=== PATIENT | male | born 1950 | race Caucasian/White ===

== ENCOUNTER 2020-06-05 08:28 | Inpatient (IN) ==
[2020-06-05] MEDS ORDERED: OPTIRAY 350 500ml IV ONE (09:31)
--- NOTE | 2020-06-05 09:43 | Emergency Department Note ---
ED Visit Note This patient was seen with Dr. Quach. We discussed and agreed upon the history, physical, assessment and plan.. Resident Activity Tracking Resident Involvement: Resident Care Provided Care Provided: Adult ED
--- NOTE | 2020-06-05 09:44 | XRay Report ---
SINGLE VIEW CHEST CLINICAL HISTORY: Strokelike symptoms. FINDINGS: An AP, portable, upright chest radiograph is obtained. No prior studies are available for c omparison at the time of dictation. The examination is degraded by portable technique, apical lordoti c positioning, and patient rotation. A 3-lead cardiac pacemaker is in place. The heart is enlarged. T he pulmonary vasculature is noncongested. There is bibasilar scarring/atelectasis. The lungs and pleu ral spaces are otherwise clear. No pneumothorax is seen. The skeletal structures are osteopenic. The bony thorax is grossly intact. IMPRESSION: 1. Cardiomegaly and cardiac pacemaker. There is no radiographic evidence of congestive failure. 2. No airspace consolidation or large pleural effusion is identified. ACT 112: Negative or not required by law. Electronically signed by: Donald Yan M.D. 06/05/2020 9:42 AM
[2020-06-05 09:58] LABS: Basophils # (auto) 0.01 K/uL (0-0.2); Basophils % (auto) 0.2 %; Eosinophils # (auto) 0.13 K/uL (0-0.5); Eosinophils % (auto) 2.1 %; Hematocrit (blood only) 43.5 % (42-52); Hemoglobin 15.4 g/dL (14.0-18.0); Immature Granulocytes # (auto) 0.01 K/uL (0.00-0.02); Immature Granulocytes % (auto) 0.2 %; Lymphocytes # (auto) 1.35 K/uL (1.2-3.4); Lymphocytes % (auto) 21.4 %; Mean Corpuscular Hemoglobin 31.2 pg (25-34); Mean Corpuscular Hgb Conc 35.4 g/dL (32-36); Mean Corpuscular Volume 88.2 fL (80-100); Mean Platelet Volume 9.7 fL (7.4-10.4); Monocytes % (auto) 9.5 %; Neutrophils # (auto) 4.21 K/uL (1.4-6.5); Neutrophils % (auto) 66.6 %; Platelet Count 135 K/uL (130-400); RDW Coefficient of Variation 13.3 % (11.5-14.5); Red Blood Count 4.93 M/uL (4.7-6.1); White Blood Count 6.31 K/uL (4.8-10.8)
[2020-06-05 10:11] LABS: Partial Thromboplastin Time 27.1 Seconds (21.0-31.0); Prothrombin Time 10.4 Seconds (9.0-12.0)
[2020-06-05 10:15] LABS: Albumin Level 3.6 gm/dl (3.4-5.0); Calcium 9.2 mg/dl (8.5-10.1); Creatinine Clr Calc Pharmacy 95.6 ml/min; Est GFR (African American) 96.1; Est GFR (Non-African American) 82.9; Magnesium 1.8 mg/dl (1.8-2.4); Potassium 4.4 mmol/L (3.5-5.1)
[2020-06-05 10:24] LABS: Albumin Globulin Ratio 1.1 (0.9-2); Bilirubin,Total 0.9 mg/dl (0.2-1); Globulin 3.1 gm/dl (2.5-4.0); Total Protein 6.7 gm/dl (6.4-8.2); Troponin I 0.077 ng/ml (0-0.045)
--- NOTE | 2020-06-05 11:12 | CT Scan Report ---
CT head/brain wo con CLINICAL HISTORY: Stroke Like Symptoms COMPARISON STUDY: No previous studies for comparison. TECHNIQUE: Axial CT of the brain is performed from the vertex to the skull base. IV contrast was not administered for this examination. A dose lowering technique was utilized adhering to the principles of ALARA. CT DOSE: FINDINGS: No intra or extra-axial mass lesions are visualized. There is no CT evidence of acute cortical infarc tion. There is no evidence of midline shift. There is no acute hemorrhage. No calvarial fractures ar e visualized. There are minor white matter hypodensities likely on a small vessel basis. There is no evidence of pathologic ventricular dilatation. There is no evidence of acute sinusitis IMPRESSION: No acute intracranial findings ACT 112: Negative or not required by law. Electronically signed by: Dane Mesa M.D. 06/05/2020 11:11 AM
--- NOTE | 2020-06-05 11:26 | CT Scan Report ---
CT ANGIOGRAM OF THE BRAIN; CT ANGIOGRAM OF THE NECK CLINICAL HISTORY: Strokelike symptoms. COMPARISON STUDY: No priors. TECHNIQUE: Following the IV administration of 120 of Optiray 350, CT angiogram of the head and neck w as performed from the aortic arch to the vertex. Images are reviewed in the axial, sagittal, and bandar nal planes. 3-D MIPS images are created and assessed. IV contrast was administered without complicati on. All measurements were calculated based on NASCET criteria. A dose lowering technique was utilize d adhering to the principles of ALARA. CT DOSE: 1296.29 mGy.cm FINDINGS: Brain parenchyma: There is age-related involutional change noting mild subcortical and periventricula r microangiopathic disease. There is no hemorrhage, mass effect, or evidence of acute territorial isc hemia by CT criteria. There is no evidence of enhancing mass lesion on the angiogram phase images. Th e ventricles, sulci, and cisterns are prominent secondary to involutional change. Steen-white matter d ifferentiation is preserved. No extra-axial fluid collection is seen. Thoracic aorta: There is aneurysmal dilatation of the ascending thoracic aorta which measures up to 4 .8 cm in diameter. The aortic arch demonstrates standard 3-vessel anatomy. Right carotid arterial system: The right common carotid artery is widely patent. Atherosclerotic plaq ue causes less than 50% luminal narrowing of the proximal right internal carotid artery. The remainde r of the right internal carotid artery is widely patent, as is the right external carotid artery. Left carotid arterial system: The left common carotid artery is widely patent, as are the left internal corrosion specialist al and external carotid arteries. Mild plaque is seen in the carotid bulb. Vertebral arteries: The vertebral arteries are widely patent bilaterally noting a right-sided dominan ce. Subclavian arteries: Widely patent bilaterally. Intracranial vasculature: There is atherosclerotic calcification of the cavernous carotid arteries. T here is origin of the right posterior cerebral artery. The internal carotid arteries are patent at the skull base, as are the anterior and middle cerebral arteries bilaterally. The vertebrobasilar system and posterior cerebral arteries are widely patent. The right vertebral artery is dominant. Th ere is no aneurysm, high-grade stenosis, or focal vessel cut off seen throughout the intracranial cir culation. Jugular veins: Patent bilaterally. Dural sinuses: Patent. Lung apices: Partially visualized upper lobe lung parenchyma appears clear. Soft tissues: The visualized pharyngeal soft tissues are normal in appearance noting angiographic pha se technique. The oropharyngeal airway appears widely patent. The salivary and thyroid glands are nor mal in appearance. No cervical lymphadenopathy is seen. Skeletal structures: The skeletal structures are osteopenic. The calvarium appears intact. The cervic al spine is maintained noting multilevel spondylosis. No lytic or blastic lesion is seen. Orbits: The bony orbits are intact. Orbital contents are normal as visualized. Sinuses and mastoids: Mild mucosal thickening is noted in left sphenoid sinus. The remaining paranasa l sinuses are clear. The mastoid air cells are well pneumatized. IMPRESSION: 1. There is no hemorrhage, mass effect, or evidence of acute territorial ischemia by CT criteria noti ng angiographic phase technique. 2. Unremarkable CT angiogram of the brain. 3. There is aneurysmal dilatation of the visualized ascending thoracic aorta which measures up to 4.8 cm in diameter. 4. Atherosclerotic plaque causes less than 50% luminal narrowing of the proximal left internal caroti d artery. 5. Otherwise normal CT angiogram of the neck. ACT 112: Negative or not required by law. Electronically signed by: Donald Yan M.D. 06/05/2020 11:24 AM
--- NOTE | 2020-06-05 12:14 | Emergency Department Note ---
History of Present Illness General Chief complaint: Ear Pain/Problem Stated complaint: CANT HEAR OUT OF LEFT EAR,FACIAL NUMBNESS,BALANCE Time Seen by Provider: 06/05/20 08:53 Source: patient Mode of arrival: ambulatory Limitations: no limitations History of Present Illness Provider complaint: Blurred vision Maximum Pain Intensity: 0 This is a 69-year-old male who presents to the ED with a chief complaint of blurred vision in both of his eyes that started around 7:30 in the morning and resolved when he got here. He also states that he has been feeling unbalanced on his feet especially worse with turning his head left to right. The patient states that his left face felt numb off and on for the past month. He had some chest discomfort a couple of days ago and took a nitro. He has history of ND in 2011. Risk reports history of hypertension as well. Home Medications Medication Instructions Recorded Confirmed Type amlodipine [Norvasc] 5 mg PO QAM 06/05/20 06/05/20 History apixaban [Eliquis] 5 mg PO BID 06/05/20 06/05/20 History bumetanide 2 mg PO QAM 06/05/20 06/05/20 History capsaicin-skin cleanser [Qutenza] 2 ea TOPICAL Q90D 06/05/20 06/05/20 History cyanocobalamin (vitamin B-12) 1,000 mcg PO QAM 06/05/20 06/05/20 History [Vitamin B-12] folic acid 1 mg PO QAM 06/05/20 06/05/20 History glipizide 2.5 mg PO DAILY 06/05/20 06/05/20 History metoprolol succinate 50 mg PO QAM 06/05/20 06/05/20 History silbgwsx-abs-yblxw-vit K-lycop 1 tab PO QAM 06/05/20 06/05/20 History [One-A-Day Men's 50 Plus] nitroglycerin [Nitrostat] 0.4 mg SUBLINGUAL Q5M PRN 06/05/20 06/05/20 History olmesartan [Benicar] 20 mg PO BID 06/05/20 06/05/20 History omeprazole 20 mg PO QAM 06/05/20 06/05/20 History potassium 99 mg PO QAM 06/05/20 06/05/20 History rosuvastatin 5 mg PO HS 06/05/20 06/05/20 History sertraline 50 mg PO HS 06/05/20 06/05/20 History vitamin E 45 mg PO QAM 06/05/20 06/05/20 History Allergies Allergy/AdvReac Type Severity Reaction Status Date / Time No Known Allergies Allergy Unverified 06/05/20 09:58 Past Med/Surg History Social History Smoking Status: Never smoker Feels Safe at Home: Yes Review of Systems A total of 10 systems reviewed and were otherwise negative Physical Exam Vital Signs Vital Signs - 24 hr 06/05/20 08:32 06/05/20 09:49 06/05/20 10:24 Temperature 36.6 C Temperature Source Temporal Artery Scan Pulse Rate 87 77 71 Pulse Rate from SpO2 Sensor 71 71 Respiratory Rate 16 20 18 Respiratory Effort / Characteristics Non-Labored Respiratory Depth Normal Blood Pressure 192/123 H 156/91 H 143/95 H Blood Pressure Mean 146 112 111 Pulse Oximetry 97 97 96 Sepsis Recent Fever Within 48 Hours No Sepsis New/Unexplained Change in Mental Status No Sepsis Action Taken by Nursing No Action Required 06/05/20 10:30 06/05/20 11:41 Temperature Temperature Source Pulse Rate 70 70 Pulse Rate from SpO2 Sensor 70 70 Respiratory Rate 17 16 Respiratory Effort / Characteristics Respiratory Depth Blood Pressure 144/95 H 156/107 H Blood Pressure Mean 111 123 Pulse Oximetry 97 97 Sepsis Recent Fever Within 48 Hours Sepsis New/Unexplained Change in Mental Status Sepsis Action Taken by Nursing CONSTITUTIONAL/VITAL SIGNS: Reviewed / noted above. GENERAL: Non-toxic in appearance. INTEGUMENTARY: Warm, dry, and [place]. HEAD: Normocephalic. EYES: without scleral icterus or trauma. ENT/OROPHARYNX: clear and moist. LYMPHADENOPATHY/NECK: Is supple without lymphadenopathy or meningismus. RESPIRATORY: Lungs clear and equal. CARDIOVASCULAR: Regular rate and rhythm. GI/ABDOMEN: Soft and nontender. No organomegaly or pulsatile mass. No rebound or guarding. Normal bowel sounds. EXTREMITIES: Warm and well perfused. BACK: No CVA tenderness. NEUROLOGICAL: Intact without focal deficits. PSYCHIATRIC: normal affect. MUSCULOSKELETAL: Normally developed with good muscle tone. TRIAGE NURSING DOCUMENTATION REVIEWED. Course Administered Medications Discontinued Medications Ioversol (Optiray 350 500ml) 120 ml IV ONCE ONE Stop: 06/05/20 09:32 Last Admin: 06/05/20 09:32 Dose: 120 ml Documented by: [id number] Medical Decision Making Differential Diagnosis Differential includes acute coronary syndrome, myocardial infarction, CVA, TIA, anemia, infection, pneumonia, UTI, pyelonephritis, poor nutrition, dehydration, electrolyte disturbance,hypoglycemia. Medical Records Attestation: I reviewed the patient's medical records. Home Medications Current Medication List: was personally reviewed by me Laboratory Data Attestation: I reviewed the patient's lab results. Result diagrams: 06/05/20 09:44 06/05/20 09:44 Lab Results 06/05/20 06/05/20 06/05/20 Range/Units 09:34 09:44 09:44 WBC 6.31 (4.8-10.8) K/uL RBC 4.93 (4.7-6.1) M/uL Hgb 15.4 (14.0-18.0) g/dL Hct 43.5 (42-52) % MCV 88.2 (80-100) fL MCH 31.2 (25-34) pg MCHC 35.4 (32-36) g/dL RDW Std Deviation 43.0 (36.4-46.3) fL RDW Coeff of Rachel 13.3 (11.5-14.5) % Plt Count 135 (130-400) K/uL MPV 9.7 (7.4-10.4) fL Immature Gran % (Auto) 0.2 % Neut % (Auto) 66.6 % Lymph % (Auto) 21.4 % [place] % (Auto) 9.5 % Eos % (Auto) 2.1 % Baso % (Auto) 0.2 % Neut # (Auto) 4.21 (1.4-6.5) K/uL Lymph # (Auto) 1.35 (1.2-3.4) K/uL [place] # (Auto) 0.60 H (0.11-0.59) K/uL Eos # (Auto) 0.13 (0-0.5) K/uL Baso # (Auto) 0.01 (0-0.2) K/uL Immature Gran # (Auto) 0.01 (0.00-0.02) K/uL PT 10.4 (9.0-12.0) Seconds INR 1.0 (0.9-1.1) APTT 27.1 (21.0-31.0) Seconds PTT Ratio 1.0 Sodium (136-145) mmol/L Potassium (3.5-5.1) mmol/L Chloride (98-107) mmol/L Carbon Dioxide (21-32) mmol/L Anion Gap (3-11) BUN (7-18) mg/dl Creatinine (0.6-1.4) mg/dl Est Cr Clr Drug Dosing ml/min Est GFR ( Amer) Est GFR (Non-Af Amer) BUN/Creatinine Ratio (10-20) Glucose (70-99) mg/dl POC Glucose 274 H (70-99) mg/dl Calcium (8.5-10.1) mg/dl Magnesium (1.8-2.4) mg/dl Total Bilirubin (0.2-1) mg/dl AST (15-37) U/L ALT (12-78) U/L Alkaline Phosphatase (45-117) U/L Troponin I (0-0.045) ng/ml Total Protein (6.4-8.2) gm/dl Albumin (3.4-5.0) gm/dl Globulin (2.5-4.0) gm/dl Albumin/Globulin Ratio (0.9-2) 06/05/20 Range/Units 09:44 WBC (4.8-10.8) K/uL RBC (4.7-6.1) M/uL Hgb (14.0-18.0) g/dL Hct (42-52) % MCV (80-100) fL MCH (25-34) pg MCHC (32-36) g/dL RDW Std Deviation (36.4-46.3) fL RDW Coeff of Rachel (11.5-14.5) % Plt Count (130-400) K/uL MPV (7.4-10.4) fL Immature Gran % (Auto) % Neut % (Auto) % Lymph % (Auto) % [place] % (Auto) % Eos % (Auto) % Baso % (Auto) % Neut # (Auto) (1.4-6.5) K/uL Lymph # (Auto) (1.2-3.4) K/uL [place] # (Auto) (0.11-0.59) K/uL Eos # (Auto) (0-0.5) K/uL Baso # (Auto) (0-0.2) K/uL Immature Gran # (Auto) (0.00-0.02) K/uL PT (9.0-12.0) Seconds INR (0.9-1.1) APTT (21.0-31.0) Seconds PTT Ratio Sodium 139 (136-145) mmol/L Potassium 4.4 (3.5-5.1) mmol/L Chloride 108 H (98-107) mmol/L Carbon Dioxide 27 (21-32) mmol/L Anion Gap 5.0 (3-11) BUN 10 (7-18) mg/dl Creatinine 0.93 (0.6-1.4) mg/dl Est Cr Clr Drug Dosing 95.6 ml/min Est GFR ( Amer) 96.1 Est GFR (Non-Af Amer) 82.9 BUN/Creatinine Ratio 11.0 (10-20) Glucose 270 H (70-99) mg/dl POC Glucose (70-99) mg/dl Calcium 9.2 (8.5-10.1) mg/dl Magnesium 1.8 (1.8-2.4) mg/dl Total Bilirubin 0.9 (0.2-1) mg/dl AST 21 (15-37) U/L ALT 31 (12-78) U/L Alkaline Phosphatase 92 (45-117) U/L Troponin I 0.077 H* (0-0.045) ng/ml Total Protein 6.7 (6.4-8.2) gm/dl Albumin 3.6 (3.4-5.0) gm/dl Globulin 3.1 (2.5-4.0) gm/dl Albumin/Globulin Ratio 1.1 (0.9-2) Imaging Data Radiologist's Impression: Head CT 06/05/20 09:09 CT head/brain wo con CLINICAL HISTORY: Stroke Like Symptoms COMPARISON STUDY: No previous studies for comparison. TECHNIQUE: Axial CT of the brain is performed from the vertex to the skull base. IV contrast was not administered for this examination. A dose lowering technique was utilized adhering to the principles of ALARA. CT DOSE: FINDINGS: No intra or extra-axial mass lesions are visualized. There is no CT evidence of acute cortical infarction. There is no evidence of midline shift. There is no acute hemorrhage. No calvarial fractures are visualized. There are minor white matter hypodensities likely on a small vessel basis. There is no evidence of pathologic ventricular dilatation. There is no evidence of acute sinusitis IMPRESSION: No acute intracranial findings ACT 112: Negative or not required by law. Electronically signed by: Dane Mesa M.D. 06/05/2020 11:11 AM Head CTA 06/05/20 09:09 CT ANGIOGRAM OF THE BRAIN; CT ANGIOGRAM OF THE NECK CLINICAL HISTORY: Strokelike symptoms. COMPARISON STUDY: No priors. TECHNIQUE: Following the IV administration of 120 of Optiray 350, CT angiogram of the head and neck was performed from the aortic arch to the vertex. Images are reviewed in the axial, sagittal, and coronal planes. 3-D MIPS images are created and assessed. IV contrast was administered without complication. All measurements were calculated based on NASCET criteria. A dose lowering technique was utilized adhering to the principles of ALARA. CT DOSE: 1296.29 mGy.cm FINDINGS: Brain parenchyma: There is age-related involutional change noting mild subcortical and periventricular microangiopathic disease. There is no hemorrhage, mass effect, or evidence of acute territorial ischemia by CT criteria. There is no evidence of enhancing mass lesion on the angiogram phase images. The ventricles, sulci, and cisterns are prominent secondary to involutional change. Steen-white matter differentiation is preserved. No extra- axial fluid collection is seen. Thoracic aorta: There is aneurysmal dilatation of the ascending thoracic aorta which measures up to 4.8 cm in diameter. The aortic arch demonstrates standard 3-vessel anatomy. Right carotid arterial system: The right common carotid artery is widely patent. Atherosclerotic plaque causes less than 50% luminal narrowing of the proximal right internal carotid artery. The remainder of the right internal carotid art padma is widely patent, as is the right external carotid artery. Left carotid arterial system: The left common carotid artery is widely patent, as are the left internal and external carotid arteries. Mild plaque is seen in the carotid bulb. Vertebral arteries: The vertebral arteries are widely patent bilaterally noting a right-sided dominance. Subclavian arteries: Widely patent bilaterally. Intracranial vasculature: There is atherosclerotic calcification of the cavernous carotid arteries. There is origin of the right posterior cerebral artery. The internal carotid arteries are patent at the skull base, as are the anterior and middle cerebral arteries bilaterally. The vertebrobasilar system and posterior cerebral arteries are widely patent. The right vertebral artery is dominant. There is no aneurysm, high-grade stenosis, or focal vessel cut off seen throughout the intracranial circulation. Jugular veins: Patent bilaterally. Dural sinuses: Patent. Lung apices: Partially visualized upper lobe lung parenchyma appears clear. Soft tissues: The visualized pharyngeal soft tissues are normal in appearance noting angiographic phase technique. The oropharyngeal airway appears widely patent. The salivary and thyroid glands are normal in appearance. No cervical lymphadenopathy is seen. Skeletal structures: The skeletal structures are osteopenic. The calvarium appears intact. The cervical spine is maintained noting multilevel spondylosis. No lytic or blastic lesion is seen. Orbits: The bony orbits are intact. Orbital contents are normal as visualized. Sinuses and mastoids: Mild mucosal thickening is noted in left sphenoid sinus. The remaining paranasal sinuses are clear. The mastoid air cells are well pneumatized. IMPRESSION: 1. There is no hemorrhage, mass effect, or evidence of acute territorial ischemia by CT criteria noting angiographic phase technique. 2. Unremarkable CT angiogram of the brain. 3. There is aneurysmal dilatation of the visualized ascending thoracic aorta which measures up to 4.8 cm in diameter. 4. Atherosclerotic plaque causes less than 50% luminal narrowing of the proximal left internal carotid artery. 5. Otherwise normal CT angiogram of the neck. ACT 112: Negative or not required by law. Electronically signed by: Donald Yan M.D. 06/05/2020 11:24 AM Neck CTA 06/05/20 09:09 CT ANGIOGRAM OF THE BRAIN; CT ANGIOGRAM OF THE NECK CLINICAL HISTORY: Strokelike symptoms. COMPARISON STUDY: No priors. TECHNIQUE: Following the IV administration of 120 of Optiray 350, CT angiogram of the head and neck was performed from the aortic arch to the vertex. Images are reviewed in the axial, sagittal, and coronal planes. 3-D MIPS images are created and assessed. IV contrast was administered without complication. All measurements were calculated based on NASCET criteria. A dose lowering technique was utilized adhering to the principles of ALARA. CT DOSE: 1296.29 mGy.cm FINDINGS: Brain parenchyma: There is age-related involutional change noting mild subcortical and periventricular microangiopathic disease. There is no hemorrhage, mass effect, or evidence of acute territorial ischemia by CT criteria. There is no evidence of enhancing mass lesion on the angiogram phase images. The ventricles, sulci, and cisterns are prominent secondary to involutional change. Steen-white matter differentiation is preserved. No extra- axial fluid collection is seen. Thoracic aorta: There is aneurysmal dilatation of the ascending thoracic aorta which measures up to 4.8 cm in diameter. The aortic arch demonstrates standard 3-vessel anatomy. Right carotid arterial system: The right common carotid artery is widely patent. Atherosclerotic plaque causes less than 50% luminal narrowing of the proximal right internal carotid artery. The remainder of the right internal carotid artery is widely patent, as is the right external carotid artery. Left carotid arterial system: The left common carotid artery is widely patent, as are the left internal and external carotid arteries. Mild plaque is seen in t he carotid bulb. Vertebral arteries: The vertebral arteries are widely patent bilaterally noting a right-sided dominance. Subclavian arteries: Widely patent bilaterally. Intracranial vasculature: There is atherosclerotic calcification of the cavernous carotid arteries. There is origin of the right posterior cerebra l artery. The internal carotid arteries are patent at the skull base, as are the anterior and middle cerebral arteries bilaterally. The vertebrobasilar system and posterior cerebral arteries are widely patent. The right vertebral artery is dominant. There is no aneurysm, high-grade stenosis, or focal vessel cut off seen throughout the intracranial circulation. Jugular veins: Patent bilaterally. Dural sinuses: Patent. Lung apices: Partially visualized upper lobe lung parenchyma appears clear. Soft tissues: The visualized pharyngeal soft tissues are normal in appearance noting angiographic phase technique. The oropharyngeal airway appears widely patent. The salivary and thyroid glands are normal in appearance. No cervical lymphadenopathy is seen. Skeletal structures: The skeletal structures are osteopenic. The calvarium appears intact. The cervical spine is maintained noting multilevel spondylosis. No lytic or blastic lesion is seen. Orbits: The bony orbits are intact. Orbital contents are normal as visualized. Sinuses and mastoids: Mild mucosal thickening is noted in left sphenoid sinus. The remaining paranasal sinuses are clear. The mastoid air cells are well pneumatized. IMPRESSION: 1. There is no hemorrhage, mass effect, or evidence of acute territorial ischemia by CT criteria noting angiographic phase technique. 2. Unremarkable CT angiogram of the brain. 3. There is aneurysmal dilatation of the visualized ascending thoracic aorta which measures up to 4.8 cm in diameter. 4. Atherosclerotic plaque causes less than 50% luminal narrowing of the proximal left internal carotid artery. 5. Otherwise normal CT angiogram of the neck. ACT 112: Negative or not required by law. Electronically signed by: Donald Yan M.D. 06/05/2020 11:24 AM Chest X-Ray 06/05/20 09:11 SINGLE VIEW CHEST CLINICAL HISTORY: Strokelike symptoms. FINDINGS: An AP, portable, upright chest radiograph is obtained. No prior st udies are available for comparison at the time of dictation. The examination is degraded by portable technique, apical lordotic positioning, and patient rotation. A 3-lead cardiac pacemaker is in place. The heart is enlarged. The pulmonary vasculature is noncongested. There is bibasilar scarring/atelectasis. The lungs and pleural spaces are otherwise clear. No pneumothorax is seen. The skeletal structures are osteopenic. The bony thorax is grossly intact. IMPRESSION: 1. Cardiomegaly and cardiac pacemaker. There is no radiographic evidence of congestive failure. 2. No airspace consolidation or large pleural effusion is identified. ACT 112: Negative or not required by law. Electronically signed by: Donald Yan M.D. 06/05/2020 9:42 AM ECG Data Attestation: I personally reviewed and interpreted this ECG as follows: Indication: + other (Paced ventricular rhythm) Rate (beats per minute): 72 MDM Narrative Patient presents with a multitude of symptoms as noted above. Symptoms could be related to a TIA as they resolved on arrival. He also had some chest pains a couple of days ago that resolved after nitro. His troponin was elevated. CT scans and chest x-ray are noted above. No acute process. EKG shows a paced ventricular rhythm. The patient was told the results of the test. He will be seen by the hospitalist for further evaluation and care. Currently denies chest pains. Impression & Plan Elevated troponin, Pacemaker Discharge Plan Visit Data Chief Complaint: Ear Pain/Problem Stated Complaint: CANT HEAR OUT OF LEFT EAR,FACIAL NUMBNESS,BALANCE ED Provider: Honorio Quach ED Midlevel Provider: Chinyere Rodriguez Discharge Problem: Elevated troponin, Pacemaker Patient Disposition: Being Evaluated by Hospitalist Forms Stand Alone Forms: [facility] Prescriptions Prescriptions: No Action omeprazole 20 mg capsule,delayed release(DR/EC) 20 mg PO QAM RF: 0 rosuvastatin 5 mg tablet 5 mg PO HS RF: 0 bumetanide 2 mg Tablet 2 mg PO QAM RF: 0 metoprolol succinate 50 mg tablet extended release 24 hr 50 mg PO QAM RF: 0 cyanocobalamin (vitamin B-12) [Vitamin B-12] 1,000 mcg Tablet 1,000 mcg PO QAM RF: 0 amlodipine [Norvasc] 5 mg tablet 5 mg PO QAM RF: 0 potassium 99 mg Tablet 99 mg PO QAM RF: 0 vitamin E 400 unit Tablet 45 mg PO QAM RF: 0 nitroglycerin [Nitrostat] 0.4 mg Tablet, Sublingual 0.4 mg sublingual Q5M PRN (Reason: Chest Pain) RF: 0 folic acid 1 mg tablet 1 mg PO QAM RF: 0 sertraline 50 mg tablet 50 mg PO HS RF: 0 glipizide 5 mg tablet 2.5 mg PO DAILY RF: 0 olmesartan [Benicar] 20 mg tablet 20 mg PO BID RF: 0 Qutenza 8 % Kit 2 ea TOPICAL Q90D RF: 0 One-A-Day Men's 50 Plus 400-20-370 mcg Tablet 1 tab PO QAM RF: 0 Eliquis 5 mg tablet 5 mg PO BID RF: 0 Referrals Referrals: Nelson Mckeon DO [Primary Care Provider] -
[2020-06-05 13:19] LABS: Influenza A virus by PCR Negative (Neg); Influenza B virus by PCR Negative (Neg); RSV by PCR Negative (Neg); SARS CoV2 RNA(COVID-19) InHosp NEGATIVE (Negative)
--- NOTE | 2020-06-05 14:23 | History & Physical Report ---
Date of Service June 05, 2020 Assessment & Plan (1) TIA (transient ischemic attack): Possible TIA, though hx is very unclear and some of it seems to be very long-standing. - MRI ordered -> Unclear if pacemaker is MRI-compatible, but it is relatively new (2014), so I am hoping so. - Also noted in MRI to evaluate left vestibulocochlear nerve to evaluate for anatomic issue that could be causing left-sided hearing loss and vertigo. - Neurology consulted - A1c, lipids ordered - Recent echo per patient at his inspector publications's office -> Records ordered - Telemetry - PT/OT (2) Left-sided sensorineural hearing loss: Going on for at least 3 months judging by when his PCP ordered prednisone (see admission HPI for details). - TMs on both sides look ok to me. There might be some fluid behind the left ear, but no AOM to my exam. However, he denies sinus congestion, rhinorrhea, or post-nasal drip on either side making middle ear effusion less likely. - MRI as above - Meniere's disease a possibility given his episodic vertigo, hearing loss, and tinnitus. Reached out to ENT for thoughts: * No ability to do audiology consult inpatient. * No balance center in [place] * If concern for sudden hearing loss, can start prednisone 60 mg PO daily, then taper. * Refer to ENT on discharge for audiology testing and follow-up * Can try meclizine PRN for vertigo * If vertigo is so bad that we cannot discharge, ENT recommended transfer to tertiary care where additional inpatient testing can be done. (3) Vertigo: Ongoing for at least 2 months, possibly longer with it seeming to correlate with his left-sided hearing loss. Worsens if he looks left or right. - PT for [place]-Hallpike and Giles maneuver, though my concern for BPPV is a bit lower. - MRI as above (4) CAD (coronary artery disease): [place] in 2008 with stents to the LAD. Reports chronic, stable chest pain, with a new episode of chest pain on Monday that has resolved. Troponin in the ED was 0.077 with EKG only showing paced rhythm. Usual inspector publications is AALIYAH Hutchison out of [facility]. - Trend troponins and EKGs, though concern for NSTEMI or UA is low. - Recently passed stress test (within the last 2 weeks) -> Will obtain records - Continue home beta-aminah, ARB, and statin - Patient says he was told *not* to take ASA by his PCP due to being on anticoagulation. (5) Elevated troponin: As above (6) Diabetes: No known A1c. Has actually been taking his glipizide at 5 mg PO BID (4x his prescribed dose) because his PCP told him his blood sugar was "high," though he doesn't check it at home. Has significant peripheral neuropathy. - Hold home glipizide - Sliding scale insulin - Check A1c (7) Atrial fibrillation: S/p ablation with Bi-V pacemaker. - Continue home apixaban - Continue home beta-aminah (8) REGLA (obstructive sleep apnea): Uses home CPAP, but does not know his settings. - CPAP ordered with RT to adjust settings as needed (9) Thoracic aortic aneurysm: CTA neck on 06/05 noted a 4.8 cm ascending thoracic aorta aneurysm. I do not think his chronic chest pain represents symptoms from this. Per guidelines, until this is >5.5 cm, it would not require repair. - Routine outpatient monitoring (10) DVT prophylaxis: On apixaban for afib History of Present Illness Primary Care Provider: Nelson Mckeon, DO 69yo M w/ hx of CAD, afib, pacemaker, possible CHF, and DM who presents as a possible TIA. His history is convoluted, and he intermixes a variety of symptoms that make it somewhat hard to differentiate acute from chronic issues. He reports that over the last 2 months or so, he has had vestibular symptoms. This has included left-sided hearing loss and vertigo. He reports the hearing loss is nearly complete on the left side and has not waxed or waned in the last few months. He also notes that he has some vertigo symptoms where when he looks to the left or right, he gets transient vertigo. His PCP gave him a 10-day course of steroids approx. 1 month ago (but when I look in [place], it looks like it was in February). He reports this helped some, but that it has gotten worse again since taking the steroids. He says that because of the vertigo, he has started to stumble and have some trouble walking. He also had a fall about 1 week ago, though he denies any loss of consciousness at the time. He also reports chest pain that he says he "always" has. This pain is located in the central sternum and does not have any associated factors and does not wax or wane. However, he had a *different* chest pain on Monday of this week that he says spread across his chest and went down his bilateral arms. He took a nitroglycerin tablet and it improved, but he says it came back about 30 minutes later. When it came back, he did not take another nitro and did not contact his physician, but he says it went away after a while. He reports he had a stress test with his usual inspector publications, Ms. Aislinn Madrigal which was normal. Finally, the thing that brought him to the ED today was an episode of visual changes, left jaw numbness, and worsening stumbling. 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 As he was driving to the airport, he had an episode where he said he could not see the car driving toward him until it was almost past him. Around the same time, he had a second or two of left jaw numbness that passed without any treatment. When he got out of his truck, he said he was staggering around and his boss made him come to the hospital. At present, his vision has returned to normal. He no longer has any flashes, floaters, or other acute eye symptoms. With his glasses, he can read near and far and says his vision is at his baseline. He no longer has any left jaw numbness. He reports he does have chest pain, but it is his normal, daily chest pain. He reports he still has some vertigo symptoms if he moves his head, but this is also the chronic issue. He reports some continued stumbling, but is unclear on if this is baseline or not. Allergies Allergy/AdvReac Type Severity Reaction Status Date / Time No Known Allergies Allergy Unverified 06/05/20 09:58 Home Medications Medication Instructions Recorded Confirmed Type amlodipine [Norvasc] 5 mg PO QAM 06/05/20 06/05/20 History apixaban [Eliquis] 5 mg PO BID 06/05/20 06/05/20 History bumetanide 2 mg PO QAM 06/05/20 06/05/20 History capsaicin-skin cleanser [Qutenza] 2 ea TOPICAL Q90D 06/05/20 06/05/20 History cyanocobalamin (vitamin B-12) 1,000 mcg PO QAM 06/05/20 06/05/20 History [Vitamin B-12] folic acid 1 mg PO QAM 06/05/20 06/05/20 History glipizide 2.5 mg PO DAILY 06/05/20 06/05/20 History metoprolol succinate 50 mg PO QAM 06/05/20 06/05/20 History uopzhxlt-joj-xjzrf-vit K-lycop 1 tab PO QAM 06/05/20 06/05/20 History [One-A-Day Men's 50 Plus] nitroglycerin [Nitrostat] 0.4 mg SUBLINGUAL Q5M PRN 06/05/20 06/05/20 History olmesartan [Benicar] 20 mg PO BID 06/05/20 06/05/20 History omeprazole 20 mg PO QAM 06/05/20 06/05/20 History potassium 99 mg PO QAM 06/05/20 06/05/20 History rosuvastatin 5 mg PO HS 06/05/20 06/05/20 History sertraline 50 mg PO HS 06/05/20 06/05/20 History vitamin E 45 mg PO QAM 06/05/20 06/05/20 History Past Med/Surg History Medical History (Updated 06/05/20 @ 14:16 by Augutsus Simmons MD) Atrial fibrillation CAD (coronary artery disease) Diabetes Pacemaker Thoracic aortic aneurysm Vertigo Family History (Updated 06/05/20 @ 14:11 by Augustus Simmons MD) Father Heart disease Social History Smoking Status: Never smoker Feels Safe at Home: Yes Review of Systems Review of Systems: All systems reviewed & are unremarkable except as noted in HPI & below Physical Exam Constitutional: WD/WN, vitals as above Eyes: PERRL and EOM intact bilaterally; no conjunctival abnormality and no papilledema ENMT: external ear and nose normal, oropharynx normal Ears: no TM abnormality (Both TMs appear normal) Neck: trachea midline, no thyromegaly normal visual inspection Respiratory: normal respiratory effort, lungs clear to auscultation no respiratory distress Cardiovascular: RRR, no murmur, no edema Gastrointestinal (Abdomen): Inspection/Auscultation: abdomen normal to inspection; abdomen not distended Musculoskeletal: no cyanosis or clubbing, extremities motor strength 5/5 Skin: no rashes, warm and dry Neurologic: moves all extremities and awake Psychiatric: Orientation: alert, oriented to person and cooperative Results & Data Results & Data ([facility]) Vital Signs (Past 12 Hours) Vital Signs Temp Pulse Resp BP Pulse Ox 06/05/20 13:00 70 20 149/109 H 95 06/05/20 12:30 74 16 164/119 H 96 06/05/20 12:00 70 15 154/99 H 97 06/05/20 11:41 70 16 156/107 H 97 06/05/20 10:30 70 17 144/95 H 97 06/05/20 10:24 71 18 143/95 H 96 06/05/20 09:49 77 20 156/91 H 97 06/05/20 08:32 36.6 C 87 16 192/123 H 97 PG Care Time/CCT Total # of Minutes Spent Total Time Spent with Patient: Total time spent is greater than 50% in coordination of care (as documented) at patient's floor/unit and/or counseling patient: Coding Level of Care Code 22272 OBS Care - Level 3 Diagnoses TIA (transient ischemic attack) G45.9 Left-sided sensorineural hearing loss H90.5 Vertigo R42 CAD (coronary artery disease) I25.10 Elevated troponin R77.8 Diabetes E11.9 Atrial fibrillation I48.91 REGLA (obstructive sleep apnea) G47.33 Thoracic aortic aneurysm I71.2 DVT prophylaxis Z29.9
--- NOTE | 2020-06-05 16:20 | Electrocardiogram Report ---
Test Reason : Blood Pressure : / mmHG Vent. Rate : 072 BPM Atrial Rate : 375 BPM P-R Int : 000 ms QRS Dur : 150 ms QT Int : 434 ms P-R-T Axes : 000 249 065 degrees QTc Int : 475 ms Ventricular-paced rhythm Biventricular pacemaker detected Abnormal ECG No previous ECGs available Confirmed by Enrique Garrison ([id number]) on 06/05/2020 4:20:26 PM Referred By: REFERRED SELF Confirmed By:Ruel Garrison
[2020-06-05] MEDS ORDERED: GLUCAGON FOR INJ 1 MG VIAL SQ PRN (16:21)
[2020-06-05] MEDS ORDERED: ONDANSETRON INJ 2 MG/ML 2 ML VIAL IV PRN (16:21)
[2020-06-05] MEDS ORDERED: GLUCOSE 10 TABS/TUBE PO PRN (16:21)
[2020-06-05] MEDS ORDERED: DEXTROSE 50% 50 ML SYRINGE IV PRN (16:21)
[2020-06-05] MEDS ORDERED: MECLIZINE 12.5 MG TAB PO PRN (16:21)
[2020-06-05] MEDS ORDERED: GLUCOSE 40% GEL 15 GM TUBE PO PRN (16:21)
[2020-06-05] MEDS ORDERED: CARBOHYDRATES FOR HYPOGLYCEMIA PO PRN (16:21)
[2020-06-05] MEDS: INSULIN ASPART 100 UNITS/ML 3 ML PEN SC SCH ×2 (18:18→20:54)
[2020-06-05] MEDS: SERTRALINE HCL 50 MG TABLET PO SCH (20:50)
[2020-06-05] MEDS: ROSUVASTATIN CALCIUM 5 MG TAB PO SCH (20:50)
[2020-06-05] MEDS: OLMESARTAN MEDOXOMIL 20 MG TAB PO SCH (20:51)
[2020-06-05] MEDS: APIXABAN 5 MG TABLET PO SCH (20:51)
[2020-06-05] MEDS ORDERED: NITROGLYCERIN 0.3 MG/1 TAB 100 TAB BTL SL PRN (23:02)
[2020-06-06 06:33] LABS: Hematocrit (blood only) 41.8 % (42-52); Hemoglobin 14.5 g/dL (14.0-18.0); Mean Corpuscular Hemoglobin 30.7 pg (25-34); Mean Corpuscular Hgb Conc 34.7 g/dL (32-36); Mean Corpuscular Volume 88.6 fL (80-100); Mean Platelet Volume 9.7 fL (7.4-10.4); Platelet Count 109 K/uL (130-400); Red Blood Count 4.72 M/uL (4.7-6.1); White Blood Count 6.57 K/uL (4.8-10.8)
[2020-06-06 07:13] LABS: BUN Creatinine Ratio 13.1 (10-20); Calcium 8.8 mg/dl (8.5-10.1); Creatinine Clr Calc Pharmacy 91.9 ml/min; Est GFR (African American) 92.4; Est GFR (Non-African American) 79.8; Magnesium 1.8 mg/dl (1.8-2.4); Potassium 3.9 mmol/L (3.5-5.1)
[2020-06-06 07:22] LABS: Troponin I 0.219 ng/ml (0-0.045)
[2020-06-06 08:10] LABS: Estimated Average Glucose 246 mg/dl; Hemoglobin A1C 10.2 % (4.5-5.6)
[2020-06-06] MEDS: APIXABAN 5 MG TABLET PO SCH ×2 (08:32→20:44)
[2020-06-06] MEDS: CEROVITE ADV FORMULA TAB PO SCH (08:32)
[2020-06-06] MEDS: amLODIPine BESYLATE 5 MG TAB PO SCH (08:32)
[2020-06-06] MEDS: CYANOCOBALAMIN 500 MCG TABLET (VITAMIN B-12) PO SCH (08:32)
[2020-06-06] MEDS: OLMESARTAN MEDOXOMIL 20 MG TAB PO SCH ×2 (08:32→20:44)
[2020-06-06] MEDS: FOLIC ACID 1 MG TAB PO SCH (08:33)
[2020-06-06] MEDS: PANTOprazole 40 MG TAB PO SCH (08:33)
[2020-06-06] MEDS: METOPROLOL SUCC 50MG EXT REL TAB PO SCH (08:33)
[2020-06-06] MEDS: BUMETANIDE 1 MG TAB PO SCH (08:33)
[2020-06-06] MEDS: INSULIN ASPART 100 UNITS/ML 3 ML PEN SC SCH ×4 (08:35→20:44)
--- NOTE | 2020-06-06 08:41 | Hospitalist Progress Note ---
Date of Service June 06, 2020 Assessment & Plan (1) TIA (transient ischemic attack): Possible TIA, was seen by Neurology feels TIA-like episode characterized by transient vision disturbance, possibly 6th nerve palsy, but occurring with associated left facial numbness and paresthesia. Pontine tegmentum/brainstem localization. Symptoms were short-lived and occur in the context of significant hypertension. Patient does have atrial fibrillation, on Eliquis, history of biventricular cardiac pacemaker as well. Unfortunately, unable to have brain MRI. Daily low-dose aspirin has been added to patient's medication regimen which is reasonable. He will continue with Eliquis and Crestor as well. Continue medical management of hypertension. Patient has an incidental less than 50% stenosis of the left internal carotid artery as well. This vascular lesion would not require surgical intervention or stenting at this time. Periodic outpatient monitoring with ultrasound would be reasonable. Diabetic peripheral neuropathy: This patient has what looks like a severe diabetic peripheral neuropathy with associated sensory ataxia. His diabetes is poorly controlled, most recent hemoglobin A1c was 10.2. His diabetes will likely need more aggressive management, will likely require insulin. Patient will need to follow-up with his PCP and possibly endocrinology for this issue. Would consider obtaining an outpatient EMG of the lower extremities to get a more objective assessment of the status of what looks like a significant peripheral neuropathy (2) CAD (coronary artery disease): [place] in 2008 with stents to the LAD. Reports chronic, stable chest pain, with a new episode of chest pain on Monday that has resolved. Troponin in the ED was 0.077 with EKG only showing paced rhythm. 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 -troponin trend has gone up - Recently passed stress test (within the last 2 weeks according to danna) -> Will obtain records - Continue home beta-aminah, ARB, and statin - Patient says he was told *not* to take ASA by his PCP due to being on anticoagulation, baby aspirin was started due to concern for TIA (3) Elevated troponin: 0.077->0.047->0.219 (4) Atrial fibrillation: S/p ablation with Bi-V pacemaker. - Continue home apixaban - Continue home beta-aminah (5) Left-sided sensorineural hearing loss: Going on for at least 3 months - ? Meniere's disease a possibility given his episodic vertigo, hearing loss, and tinnitus. Reached out to ENT for thoughts: * Refer to ENT on discharge for audiology testing and follow-up * meclizine PRN for vertigo (6) Vertigo: Ongoing for at least 2 months, possibly longer with it seeming to correlate with his left-sided hearing loss. Worsens if he looks left or right. - PT for [place]-Hallpike and Giles maneuver, though my concern for BPPV is a bit lower. (7) Diabetes: home regimen is glipizide at 5 mg PO BID (4x his prescribed dose) because his PCP told him his blood sugar was "high," though he doesn't check it at home. Has significant peripheral neuropathy. -A1c is 10, needs education and likley start of metformin - Sliding scale insulin (8) REGLA (obstructive sleep apnea): Uses home CPAP, but does not know his settings. - CPAP ordered with RT to adjust settings as needed (9) Thoracic aortic aneurysm: CTA neck on 06/05 noted a 4.8 cm ascending thoracic aorta aneurysm. I do not think his chronic chest pain represents symptoms from this. Per guidelines, until this is >5.5 cm, it would not require repair. - Routine outpatient monitoring (10) DVT prophylaxis: On apixaban for afib Admission and Anticipated Discharge Date Admission Date: June 05, 2020 Results & Data Results & Data ([facility]) Vital Signs (Past 12 Hours) Vital Signs Temp Pulse Pulse Resp BP BP Pulse Ox 06/06/20 07:59 98.4 F 79 18 150/85 H 96 06/06/20 05:19 70 06/06/20 04:00 98.8 F 73 18 129/74 95 06/06/20 02:20 71 20 94 06/05/20 23:20 74 16 96 06/05/20 23:05 98.1 F 69 18 163/90 H 97 06/05/20 23:02 164/86 H 06/05/20 22:34 178/109 H PG Care Time/CCT Total # of Minutes Spent Total Time Spent with Patient: Total time spent is greater than 50% in coordination of care (as documented) at patient's floor/unit and/or counseling patient: Coding Level of Care Code 43280 Subseq Hosp Care Lvl 3 Diagnoses TIA (transient ischemic attack) G45.9 CAD (coronary artery disease) I25.10 Elevated troponin R77.8 Atrial fibrillation I48.91 Left-sided sensorineural hearing loss H90.5 Vertigo R42 Diabetes E11.9 REGLA (obstructive sleep apnea) G47.33 Thoracic aortic aneurysm I71.2 DVT prophylaxis Z29.9
[2020-06-06] MEDS ORDERED: NON-FORMULARY MEDICATION (Potassium 99 mg Tablet) PO SCH (09:00)
--- NOTE | 2020-06-06 09:09 | Neurology Consultation ---
Date of Consultation June 06, 2020 Assessment & Plan (1) TIA (transient ischemic attack): TIA-like episode characterized by transient vision disturbance, possibly 6th nerve palsy, but occurring with associated left facial numbness and paresthesia. Pontine tegmentum/brainstem localization. Symptoms were short- lived and occur in the context of significant hypertension. Patient does have atrial fibrillation, on Eliquis, history of biventricular cardiac pacemaker as well. Unfortunately, unable to have brain MRI. Daily low-dose aspirin has been added to patient's medication regimen which is reasonable. He will continue with Eliquis and Crestor as well. Continue medical management of hypertension. Patient has an incidental less than 50% stenosis of the left internal carotid artery as well. This vascular lesion would not require surgical intervention or stenting at this time. Periodic outpatient monitoring with ultrasound would be reasonable. (2) Diabetic peripheral neuropathy: This patient has what looks like a severe diabetic peripheral neuropathy with associated sensory ataxia. His diabetes is poorly controlled, most recent hemoglobin A1c was 10.2. His diabetes will likely need more aggressive management, will likely require insulin. Patient will need to follow-up with his PCP and possibly endocrinology for this issue. Would consider obtaining an outpatient EMG of the lower extremities to get a more objective assessment of the status of what looks like a significant peripheral neuropathy. No further immediate neurological recommendations. History of Present Illness Reason for Consultation: TIA? 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 He noted that oncoming traffic appeared blurry at a distance and became a bit more clear up close. At that time, he also experienced some paresthesias to the left side of the face. The blurry vision resolved within a minute or so, the facial paresthesia resolved a few minutes after that. He has not had a recurrence of these particular symptoms and has not had them in the past. He does relay a history of chronic stumbling, impaired balance and has a history of poorly controlled diabetes mellitus and associated diabetic peripheral neuropathy. He also relays a history of persistent hearing loss to the left ear for the past few months and an associated feeling of dizziness. This issue has been evaluated by his PCP, treated with corticosteroids. Past medical history notable for atrial fibrillation, history of MRI incompatible cardiac pacer, on Eliquis. Patient did have a CT of the head including CT angiography of the head and neck during his assessment in the emergency department. These tests were generally unrevealing. No evidence of acute or subacute stroke. There is a less than 50% stenosis of the left internal carotid artery. Patient blood pressure was notably elevated at the time of presentation, 192/123. He does complain of some left-sided chest pain and does have a modest elevation in troponins. Hospitalist physician following. Again, patient has not had a recurrence of his acute neurologic symptoms since his admission. He currently denies headache, blurry vision, diplopia, vision loss, dysarthria, dysphagia, facial weakness, facial numbness, or hemiparesis. He continues to complain of persistent hearing loss to the left ear which has been a chronic problem as well as chronically poor balance occurring in the context of what is likely a significant diabetic peripheral neuropathy with associated sensory ataxia. Allergies Allergy/AdvReac Type Severity Reaction Status Date / Time No Known Allergies Allergy Unverified 06/05/20 09:58 Home Medications Medication Instructions Recorded Confirmed Type amlodipine [Norvasc] 5 mg PO QAM 06/05/20 06/05/20 History apixaban [Eliquis] 5 mg PO BID 06/05/20 06/05/20 History bumetanide 2 mg PO QAM 06/05/20 06/05/20 History capsaicin-skin cleanser [Qutenza] 2 ea TOPICAL Q90D 06/05/20 06/05/20 History cyanocobalamin (vitamin B-12) 1,000 mcg PO QAM 06/05/20 06/05/20 History [Vitamin B-12] folic acid 1 mg PO QAM 06/05/20 06/05/20 History glipizide 2.5 mg PO DAILY 06/05/20 06/05/20 History metoprolol succinate 50 mg PO QAM 06/05/20 06/05/20 History urrdcdeg-pto-uwtbs-vit K-lycop 1 tab PO QAM 06/05/20 06/05/20 History [One-A-Day Men's 50 Plus] nitroglycerin [Nitrostat] 0.4 mg SUBLINGUAL Q5M PRN 06/05/20 06/05/20 History olmesartan [Benicar] 20 mg PO BID 06/05/20 06/05/20 History omeprazole 20 mg PO QAM 06/05/20 06/05/20 History potassium 99 mg PO QAM 06/05/20 06/05/20 History rosuvastatin 5 mg PO HS 06/05/20 06/05/20 History sertraline 50 mg PO HS 06/05/20 06/05/20 History vitamin E 45 mg PO QAM 06/05/20 06/05/20 History Patient History Medical History Atrial fibrillation CAD (coronary artery disease) Diabetes Pacemaker Thoracic aortic aneurysm Vertigo Family History Father Heart disease Social History Smoking Status: Never smoker Hx Alcohol Use: No Hx Substance Use: No Preferred Language: Japanese Communication Ability: Effective [employer] Platemaker Required: No Current Living Situation: Spouse Feels Safe at Home: Yes Assistive Devices: Glasses Review of Systems Constitutional: no fever and no chills Eyes: as per Subjective / HPI Ear, Nose, Mouth, Throat: as per Subjective / HPI Respiratory: no cough and no dyspnea Cardiovascular: as per Subjective / HPI and + chest pain Gastrointestinal: no nausea and no vomiting Genitourinary: no dysuria Musculoskeletal: no neck pain and no myalgia Integumentary: no rash and no lesions Neurologic: as per Subjective / HPI, + gait abnormality, + paresthesia and + dizziness; no tremor(s), no syncope, no headache(s), no confusion and no memory loss Psychiatric: no depression and no anxiety Hematologic / Lymphatic: no easy bleeding and no easy bruising Exam (Neuro) Constitutional: well developed and well nourished; no acute distress Eyes: normal visual harmon by confrontation, PERRL, normal accommodation and EOM intact bilaterally; no fundoscopic abnormality, no nystagmus and no papilledema Cardiovascular: Vessels: normal carotid upstroke; no carotid bruit Neurologic: Oriented to:: Person, Place and Time Memory: Short Term Intact and Remote Intact Attention: Span Intact and Concentration Intact Language: Naming Objects and Repeating Phrases Speech Fluency: negative Dysarthria Speech Aphasia: negative Aphasia Fund of Knowledge: Current Events, Past History and Vocabulary Cranial Nerves: Normal II (Visual harmon full to confrontation, visual acuity normal), III, IV, (Pupils equal round reactive to light and accommodation, eye movements normal), V (Facial sensation intact), VII (There is no facial droop or weakness), IX, X (Palate elevates to midline), XI (Shoulder shrug intact) and XII (Tongue protrudes to midline); Abnorm VIII (Significant hearing loss to finger rub on the left noted) Motor Strength: Normal Lower Extremities and Normal Upper Extremities; negative Pronator Drift Motor Tone: Normal Lower Extremities and Normal Upper Extremities Muscle Bulk/Involuntary Movements: No Involuntary Movements; negative Muscle Atrophy Sensation: Light Touch Intact; negative Pain/Temperature Intact, Vibration Intact and Proprioception Intact Coordination: Limited Balance; negative Dysdiadochokinesia, Finger-Nose Abnormal and Heel-Cooney Abnormal Deep Tendon Reflexes: Rt Triceps: 2+, Lt Triceps: 2+, Rt Biceps: 2+, Lt Biceps: 2+, Rt Brachioradialis: 2+, Lt Brachioradialis: 2+, Rt Patellar: 2+, Lt Patellar: 2+, Rt Ankle: 1+ and Lt Ankle: 1+ Special Tests: negative Babinski Present Gait: Ataxic, Wide-Based Results & Data ([facility]) Vital Signs (Past 12 Hours) Vital Signs Temp Pulse Pulse Resp BP BP Pulse Ox 06/06/20 07:59 36.9 C 79 18 150/85 H 96 06/06/20 05:19 70 06/06/20 04:00 37.1 C 73 18 129/74 95 06/06/20 02:20 71 20 94 06/05/20 23:20 74 16 96 06/05/20 23:05 36.7 C 69 18 163/90 H 97 06/05/20 23:02 164/86 H 06/05/20 22:34 178/109 H Laboratory Results WBC 6.57, hemoglobin 14.5, hematocrit 41.8, platelet count 109, sodium 138, potassium 3.9, BUN 13, creatinine 0.96, glucose 268, hemoglobin A1c 10.2, troponin 0 0.219, triglycerides 246, cholesterol 143, LDL 62, VLDL 49, HDL [address] of the head and CT angiography of the head and neck are as described in the history of present illness. An electrocardiogram reveals a ventricular paced rhythm, biventricular pacemaker detected, 76 bpm. Coding Level of Care Code 80417 Initial In Care Lvl 3 Diagnoses TIA (transient ischemic attack) G45.9 Diabetic peripheral neuropathy E11.42
[2020-06-06] MEDS: ASPIRIN 81 MG ECTAB PO SCH (11:22)
[2020-06-06] MEDS ORDERED: cloNIDine HCL 0.1 MG TAB PO PRN (14:52)
[2020-06-06] MEDS: SERTRALINE HCL 50 MG TABLET PO SCH (20:44)
[2020-06-06] MEDS: ROSUVASTATIN CALCIUM 5 MG TAB PO SCH (20:44)
[2020-06-06] MEDS: ACETAMINOPHEN 325 MG TAB PO PRN (22:10)
[2020-06-07] MEDS: INSULIN ASPART 100 UNITS/ML 3 ML PEN SC SCH ×4 (05:48→21:05)
--- NOTE | 2020-06-07 07:17 | Electrocardiogram Report ---
Test Reason : Blood Pressure : / mmHG Vent. Rate : 073 BPM Atrial Rate : 075 BPM P-R Int : 000 ms QRS Dur : 150 ms QT Int : 440 ms P-R-T Axes : 000 258 086 degrees QTc Int : 484 ms Ventricular-paced rhythm Biventricular pacemaker detected Abnormal ECG When compared with ECG of 05-JUN-2020 09:36, No significant change was found Confirmed by Michael Self ([id number]) on 06/07/2020 7:17:24 AM Referred By: REFERRED SELF Confirmed By:Michael Self
--- NOTE | 2020-06-07 07:31 | Electrocardiogram Report ---
Test Reason : Blood Pressure : / mmHG Vent. Rate : 076 BPM Atrial Rate : 375 BPM P-R Int : 000 ms QRS Dur : 148 ms QT Int : 432 ms P-R-T Axes : 000 261 044 degrees QTc Int : 486 ms Ventricular-paced rhythm Biventricular pacemaker detected Abnormal ECG When compared with ECG of 05-JUN-2020 22:37, Vent. rate has increased BY 3 BPM Confirmed by Michael Self ([id number]) on 06/07/2020 7:30:25 AM Referred By: REFERRED SELF Confirmed By:Michael Self
[2020-06-07 07:48] LABS: BUN Creatinine Ratio 18.9 (10-20); Calcium 8.7 mg/dl (8.5-10.1); Creatinine Clr Calc Pharmacy 92.4 ml/min; Est GFR (African American) 93.6; Est GFR (Non-African American) 80.8; Magnesium 1.7 mg/dl (1.8-2.4); Potassium 3.6 mmol/L (3.5-5.1)
[2020-06-07] MEDS: ASPIRIN 81 MG ECTAB PO SCH (07:57)
[2020-06-07] MEDS: amLODIPine BESYLATE 5 MG TAB PO SCH (07:57)
[2020-06-07] MEDS: FOLIC ACID 1 MG TAB PO SCH (07:58)
[2020-06-07] MEDS: CYANOCOBALAMIN 500 MCG TABLET (VITAMIN B-12) PO SCH (07:58)
[2020-06-07] MEDS: METOPROLOL SUCC 50MG EXT REL TAB PO SCH (07:58)
[2020-06-07] MEDS: BUMETANIDE 1 MG TAB PO SCH (07:58)
[2020-06-07] MEDS: OLMESARTAN MEDOXOMIL 20 MG TAB PO SCH ×2 (07:59→21:02)
[2020-06-07] MEDS: PANTOprazole 40 MG TAB PO SCH (07:59)
[2020-06-07] MEDS: CEROVITE ADV FORMULA TAB PO SCH (07:59)
[2020-06-07] MEDS ORDERED: HEPARIN SOD (PORCINE) 1000 UNIT/ML IV ONE (09:00)
[2020-06-07 09:27] LABS: Basophils # (auto) 0.02 K/uL (0-0.2); Basophils % (auto) 0.3 %; Eosinophils # (auto) 0.15 K/uL (0-0.5); Eosinophils % (auto) 2.2 %; Hematocrit (blood only) 46.6 % (42-52); Hemoglobin 16.7 g/dL (14.0-18.0); Immature Granulocytes # (auto) 0.01 K/uL (0.00-0.02); Immature Granulocytes % (auto) 0.1 %; Lymphocytes # (auto) 1.52 K/uL (1.2-3.4); Mean Corpuscular Hemoglobin 31.4 pg (25-34); Mean Corpuscular Volume 87.6 fL (80-100); Mean Platelet Volume 9.4 fL (7.4-10.4); Monocytes # (auto) 0.64 K/uL (0.11-0.59); Monocytes % (auto) 9.2 %; Neutrophils # (auto) 4.58 K/uL (1.4-6.5); Neutrophils % (auto) 66.2 %; Platelet Count 142 K/uL (130-400); RDW Coefficient of Variation 13.2 % (11.5-14.5); RDW Standard Deviation 41.9 fL (36.4-46.3); Red Blood Count 5.32 M/uL (4.7-6.1); White Blood Count 6.92 K/uL (4.8-10.8)
[2020-06-07 09:30] LABS: Mean Corpuscular Hgb Conc 35.8 g/dL (32-36)
[2020-06-07 09:37] LABS: Partial Thromboplastin Time 27.6 Seconds (21.0-31.0); Prothrombin Time 10.6 Seconds (9.0-12.0)
--- NOTE | 2020-06-07 09:43 | Electrocardiogram Report ---
Test Reason : Blood Pressure : / mmHG Vent. Rate : 071 BPM Atrial Rate : 064 BPM P-R Int : 000 ms QRS Dur : 154 ms QT Int : 438 ms P-R-T Axes : 000 243 083 degrees QTc Int : 475 ms Atrial fibrillation Ventricular-paced rhythm Biventricular pacemaker detected Abnormal ECG When compared with ECG of 06-JUN-2020 05:21, (unconfirmed) Vent. rate has decreased BY 5 BPM Confirmed by Andre Mazariegos ([id number]) on 06/07/2020 9:43:43 AM Referred By: REFERRED SELF Confirmed By:Andre Mazariegos
[2020-06-07] MEDS: HEPARIN SODIUM/DEXTROSE 25,000 UNITS/500 ML BAG IV SCH ×2 (09:48→23:48)
--- NOTE | 2020-06-07 09:51 | Neurology Progress Note ---
Date of Service June 07, 2020 Assessment & Plan (1) TIA (transient ischemic attack): (2) Diabetic peripheral neuropathy: Probable TIA localizing to the pontine tegmentum/brainstem. No symptomatic recurrence. Stroke risk factors include poorly controlled diabetes mellitus and atrial fibrillation. Continue with Eliquis and daily low-dose aspirin as well as medication for dyslipidemia. The less than 50% stenosis of the left internal carotid artery would not require treatment at this point in time although should plan on periodic outpatient ultrasound monitoring going forward. Would also consider obtaining an outpatient EMG of the lower extremities to further evaluate what looks like a severe diabetic peripheral neuropathy with associated sensory ataxia. Patient will need ongoing follow-up with his PCP and probably endocrinology for improved blood glucose control. Patient may follow-up with me or our advanced psychologist private practice in neurology clinic in 3 to 4 weeks. Admission and Anticipated Discharge Date Admission Date: June 05, 2020 Subjective Follow-up for TIA The patient denies experiencing any further episodes of blurry vision, diplopia, or facial numbness or tingling since his admission to the hospital. He had presented with a transient episode of blurry vision/diplopia and left facial numbness and tingling potentially suggestive of transient pontine tegmentum ischemia/TIA. History of several cardiovascular risk factors including atrial fibrillation, on Eliquis, biventricular cardiac pacemaker, unable to have MRI. Daily low-dose aspirin has been added to his medication regimen. Continues with medication for hyperlipidemia. History also notable for poorly controlled diabetes mellitus, most recent hemoglobin A1c greater than 10. Also likely has a diabetic peripheral neuropathy with associated sensory ataxia. Patient has been clinically stable overnight, no new neurologic events reported. CT of the head including CT angiography of the head and neck negative for hemorrhage or acute process, no vascular abnormalities on CTA of the brain. There is atherosclerotic plaque less than 50% luminal narrowing of the proximal left internal carotid artery. Review of Systems Eyes: no blind spots and no diplopia Neurologic: as per Subjective / HPI; no headache(s) and no memory loss Results & Data ([facility]) Vital Signs (Past 12 Hours) Vital Signs Temp Pulse Pulse Resp BP BP Pulse Ox 06/07/20 07:09 36.8 C 70 18 136/88 94 06/07/20 04:01 36.4 C L 69 18 133/82 93 06/07/20 02:23 70 19 94 06/06/20 23:01 37.1 C 70 18 136/82 95 Exam (Neuro) Neurologic: Oriented to:: Person, Place and Time Memory: Short Term Intact and Remote Intact Attention: Span Intact and Concentration Intact Speech Fluency: negative Dysarthria Speech Aphasia: negative Aphasia Fund of Knowledge: Current Events, Past History and Vocabulary Cranial Nerves: Normal II, III, IV, and VII Motor Strength: Normal Lower Extremities and Normal Upper Extremities Muscle Bulk/Involuntary Movements: No Involuntary Movements Sensation: negative Pain/Temperature Intact and Vibration Intact Coordination: Limited Balance Coding Level of Care Code 14315 Subseq Hosp Care Lvl 2 Diagnoses TIA (transient ischemic attack) G45.9 Diabetic peripheral neuropathy E11.42
[2020-06-07] MEDS: Heparin IV Adult Wt-Based Standard WITH Bolus Protocol IV SCH ×4 (09:53→10:52)
--- NOTE | 2020-06-07 13:04 | Cardiology Consultation ---
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 This caused him to come to the emergency room for further evaluation. He also notes angina which started in February and has become more progressive he describes it as central chest burning up into his throat it occurs with activity but he is even had symptoms at rest. He notes he has 14 steps to climb to where he lives and often has to stop for at the top feels significantly short of breath along with angina. He also describes feeling tired with the loss of energy with activity. He denies any lightheadedness or dizziness. Has any presyncope or syncope. He does get lower extremity edema worse at the end of the day and better in the morning. He denies any orthopnea. He has had a 30+ pound weight loss over the last 4 to 6 months. He has reduced his p.o. intake but it is concerning that he is losing weight at this rapid a rate. He is unaware of any palpitations or fluttering while in atrial fibrillation. He takes apixaban twice a day and is compliant with this. He denies missing any doses. His blood sugars are very high and remain uncontrolled. His His vision has returned he still cannot hear out of his left eye the left facial issues have also resolved. His cardiac history is extensive and fortunately do not have his records it sounds like he had angioplasty and stenting in 2008 in [place] due to an LAD infarct. He describes having 2 stents placed. After that he describes having a fast heart rhythm which was uncontrollable and underwent ablation it is unclear if this was for atrial fibrillation or ventricular tachycardia. 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 He describes the stress test as normal. He is unaware of his ejection fraction. He did appears to have a biventricular pacemaker but not defibrillator. He is unsure which company his device is coming from at this point there has been no record of his device both at [facility]. June 07, 2020 History of Present Illness Attending Physician: Garrison Gómez MD Allergies Allergy/AdvReac Type Severity Reaction Status Date / Time No Known Allergies Allergy Unverified 06/05/20 09:58 Home Medications Medication Instructions Recorded Confirmed Type amlodipine [Norvasc] 5 mg PO QAM 06/05/20 06/05/20 History apixaban [Eliquis] 5 mg PO BID 06/05/20 06/05/20 History bumetanide 2 mg PO QAM 06/05/20 06/05/20 History capsaicin-skin cleanser [Qutenza] 2 ea TOPICAL Q90D 06/05/20 06/05/20 History cyanocobalamin (vitamin B-12) 1,000 mcg PO QAM 06/05/20 06/05/20 History [Vitamin B-12] folic acid 1 mg PO QAM 06/05/20 06/05/20 History glipizide 2.5 mg PO DAILY 06/05/20 06/05/20 History metoprolol succinate 50 mg PO QAM 06/05/20 06/05/20 History aagdoydj-wld-sztwe-vit K-lycop 1 tab PO QAM 06/05/20 06/05/20 History [One-A-Day Men's 50 Plus] nitroglycerin [Nitrostat] 0.4 mg SUBLINGUAL Q5M PRN 06/05/20 06/05/20 History olmesartan [Benicar] 20 mg PO BID 06/05/20 06/05/20 History omeprazole 20 mg PO QAM 06/05/20 06/05/20 History potassium 99 mg PO QAM 06/05/20 06/05/20 History rosuvastatin 5 mg PO HS 06/05/20 06/05/20 History sertraline 50 mg PO HS 06/05/20 06/05/20 History vitamin E 45 mg PO QAM 06/05/20 06/05/20 History Patient History Medical History Atrial fibrillation CAD (coronary artery disease) Diabetes Pacemaker Thoracic aortic aneurysm Vertigo Family History Father Heart disease Social History Smoking Status: Never smoker Hx Alcohol Use: No Hx Substance Use: No Preferred Language: Portuguese Communication Ability: Effective Substation Manager Required: No Current Living Situation: Spouse Feels Safe at Home: Yes Assistive Devices: Glasses Results & Data ([facility]) Vital Signs (Past 12 Hours) Vital Signs Temp Pulse Pulse Resp BP Pulse Ox 06/07/20 11:12 37.0 C 72 18 134/86 94 06/07/20 07:09 36.8 C 70 18 136/88 94 06/07/20 04:01 36.4 C L 69 18 133/82 93 06/07/20 02:23 70 19 94 He is awake alert oriented x3 he has no hearing in his left ear he denies any other neurologic complaints currently. HEENT 2+ carotid upstrokes no evidence of carotid bruits Lungs: Clear to auscultation bilaterally no rales rhonchi or wheezing Heart: Regular rate and rhythm (paced) no appreciable murmurs rubs Abdomen: Soft nontender distended positive bowel sounds obese extremities no clubbing cyanosis he has mild bilateral lower extremity edema Psychiatric: His affect appeared appropriate Neurologic: He has marked decrease sensation in his lower extremities EKG atrial fibrillation BiV paced His labs were reviewed in detail as well as his EKG Impressions: (1) TIA (transient ischemic attack):Probable TIA localizing to the pontine tegmentum/brainstem. (2) Diabetic peripheral neuropathy: 3a. Non-ST ovation myocardial infarction 3. Coronary disease status post angioplasty and stenting in 2008 at [facility] secondary to an LAD infarct 4. 2 subsequent cardiac catheterizations according to the patient without any intervention 5. Biventricular pacemaker which is a [employer] device 6. Chronic atrial fibrillation on apixaban 5 mg twice daily as an outpatient 7. Unknown left ventricular systolic function 8. Previous ablation for unknown arrhythmia at [facility] in [place] As was discussed with Dr. Wright I am in agreement that the patient needs a cardiac catheterization. He has had progressive anginal symptoms since February. In fact he has had resting anginal symptoms at home. We will try to obtain his records from [facility] to determine his last catheterization that was done there 2 to 3 years ago. I discussed the risks and benefits of cardiac catheterization with him in detail. He is on appropriate medical regiment. His LDL is very good. The question is did he have an embolic event that led to a TIA and a coronary embolus or that he just had a plaque rupture leading to both events. If we think he had an embolic event and the catheterization may help us then one would say that he failed apixaban and should be switched over to Coumadin with an INR of 2-1/2-3-1/2. He needs aggressive risk factor modification with regards to his diabetes. In addition he has unexplained weight loss which may just be related to increased diuresis related to his diabetes. 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 Laguerre. If he were to have angina Nitropaste can be added to his medical regimen to stabilize him until tomorrow morning.
[2020-06-07] MEDS ORDERED: PHARMACY GLYCEMIC MGMT CONSULT PRN (14:53)
--- NOTE | 2020-06-07 14:57 | Hospitalist Progress Note ---
Date of Service June 07, 2020 Assessment & Plan (1) Elevated troponin: 0.077-which eventually peaked at 16.9 patient transitioned from Eliquis to heparin drip cardiology consultations in agreement for possible catheterization the consult is as below agreement that the patient needs a cardiac catheterization. He has had progressive anginal symptoms since February. In fact he has had resting anginal symptoms at home. We will try to obtain his records [facility] to determine his last catheterization that was done there 2 to 3 years ago. I discussed the risks and benefits of cardiac catheterization with him in detail. He is on appropriate medical regiment. His LDL is very good. The question is did he have an embolic event that led to a TIA and a coronary embolus or that he just had a plaque rupture leading to both events. If we think he had an embolic event and the catheterization may help us then one would say that he failed apixaban and should be switched over to Coumadin with an INR of 2-1/2-3-1/2. He needs aggressive risk factor modification with regards to his diabetes. In addition he has unexplained weight loss which may just be related to increased diuresis related to his diabetes. 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 . 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 -Claims to have recently passed stress test (within the last 2 weeks according to danna) -> pending records - Continue home beta-aminah, ARB, and statin - Patient says he was told *not* to take ASA by his PCP due to being on anticoagulation, baby aspirin was started due to concern for TIA (3) TIA (transient ischemic attack): Possible TIA, was seen by Neurology feels TIA-like episode characterized by transient vision disturbance, possibly 6th nerve palsy, but occurring with associated left facial numbness and paresthesia. Pontine tegmentum/brainstem localization. Symptoms were short-lived and occur in the context of significant hypertension. Patient does have atrial fibrillation, on Eliquis, history of biventricular cardiac pacemaker as well. Unfortunately, unable to have brain MRI. Daily low-dose aspirin has been added to patient's medication regimen which is reasonable. He will continue with Eliquis and Crestor as well. Continue medical management of hypertension. Patient has an incidental less than 50% stenosis of the left internal carotid artery as well. This vascular lesion would not require surgical intervention or stenting at this time. Periodic outpatient monitoring with ultrasound would be reasonable. Diabetic peripheral neuropathy: This patient has what looks like a severe diabetic peripheral neuropathy with associated sensory ataxia. His diabetes is poorly controlled, most recent hemoglobin A1c was 10.2. His diabetes will likely need more aggressive management, will likely require insulin. Patient will need to follow-up with his PCP and possibly endocrinology for this issue. Would consider obtaining an outpatient EMG of the lower extremities to get a more objective assessment of the status of what looks like a significant peripheral neuropathy (4) Atrial fibrillation: S/p ablation with Bi-V pacemaker. -Patient transition to heparin drip for possible cardiac catheterization - Continue home beta-aminah (5) Left-sided sensorineural hearing loss: Going on for at least 3 months this continues to be persistent - ? Meniere's disease a possibility given his episodic vertigo, hearing loss, and tinnitus. Reached out to ENT for thoughts: * Refer to ENT on discharge for audiology testing and follow-up * meclizine PRN for vertigo (6) Vertigo: Ongoing for at least 2 months, possibly longer with it seeming to correlate with his left-sided hearing loss. Worsens if he looks left or right. - PT for Giovana-Hallpike and Giles maneuver, though my concern for BPPV is a bit lower. (7) Diabetes: home regimen is glipizide at 5 mg PO BID (4x his prescribed dose) because his PCP told him his blood sugar was "high," though he doesn't check it at home. Has significant peripheral neuropathy. -A1c is 10, - Sliding scale insulin for glycemic management (8) REGLA (obstructive sleep apnea): Uses home CPAP, but does not know his settings. - CPAP ordered with RT to adjust settings as needed (9) Thoracic aortic aneurysm: CTA neck on 06/05 noted a 4.8 cm ascending thoracic aorta aneurysm. I do not think his chronic chest pain represents symptoms from this. Per guidelines, until this is >5.5 cm, it would not require repair. - Routine outpatient monitoring (10) DVT prophylaxis: Heparin drip for possible catheterization Admission and Anticipated Discharge Date Admission Date: June 05, 2020 Subjective Patient has no further chest pain since yesterday. At that time an EKG did not show any acute changes however his troponin peaked at 16 and is now 11. He has a high pretest probability of having known coronary disease. As he discloses he said previous stents. We also cannot determine the exact nature of his pacemaker. Cardiology is in agreement he should likely proceed to cardiac catheterization on 06/08. Some of his neurological symptoms could have been plaque rupture or thromboembolic phenomena from his heart Review of Systems Review of Systems: Mild distress and fatigue no headache, blurry or double vision decreased hearing acuity in his left ear no speech or swallowing issues Patient did have an hospital chest pain none since 06/06, no pressure or palpitations no shortness of breath, cough or wheezes no abdominal pain, nausea or vomiting, diarrhea or constipation no dysuria, hematuria or frequency no focal joint pain or swelling no back pain, CVA tenderness or radicular pain no bruising, bleeding or rashes no focal signs of weakness does have issues with his hearing as mentioned no complaints of anxiety or depression.. Physical Exam Physical Exam: The patient appeared well nourished and normally developed. Vital signs as documented. Head exam is normocephalic atraumatic no scleral icterus Neck is without JVD, thyromegaly, or carotid bruits. Lungs are clear to auscultation, no focal loss of breath sounds Cardiac exam, Rhythm is regular.. No murmurs, rubs or gallops. Abdominal exam reveals normal bowel sounds, soft non tender, no masses Extremities are nonedematous and both pedal pulses are present Neurologic exam is alert and oriented, claims decreased hearing acuity left ear Skin is without bruises or rashes Psychologically is without concerns for anxiety or depression Results & Data Results & Data ([facility]) Vital Signs (Past 12 Hours) Vital Signs Temp Pulse Resp BP Pulse Ox 06/07/20 14:29 97.7 F 75 18 118/70 96 06/07/20 11:12 98.6 F 72 18 134/86 94 06/07/20 07:09 98.2 F 70 18 136/88 94 06/07/20 04:01 97.5 F L 69 18 133/82 93 PG Care Time/CCT Total # of Minutes Spent Total Time Spent with Patient: Total time spent is greater than 50% in coordination of care (as documented) at patient's floor/unit and/or counseling patient: Coding Level of Care Code 89972 Subseq Hosp Care Lvl 3 Diagnoses Elevated troponin R77.8 CAD (coronary artery disease) I25.10 TIA (transient ischemic attack) G45.9 Atrial fibrillation I48.91 Left-sided sensorineural hearing loss H90.5 Vertigo R42 Diabetes E11.9 REGLA (obstructive sleep apnea) G47.33 Thoracic aortic aneurysm I71.2 DVT prophylaxis Z29.9
[2020-06-07] MEDS ORDERED: INSULIN GLARGINE SOLOSTAR 100 UNITS/ML 3 ML PEN SC STA (15:00)
--- NOTE | 2020-06-07 15:05 | Pharmacy Report ---
Pharmacy Glycemic Short Note 2 - Date of Service June 07, 2020 - Glycemic Short BSG Results (Last 24 hours): 06/06/20 06/06/20 06/07/20 16:20 20:18 05:42 Glucose POC Glucose 225 H 223 H 226 H 06/07/20 06/07/20 06/07/20 07:04 12:06 12:07 Glucose 264 H POC Glucose 343 H* 354 H* OUTPATIENT ANTIDIABETIC REGIMEN: * Glipizide 2.5 mg PO Daily (patient states he is actually taking 5 mg daily) * HbA1c = 10.2% (06/06/20) ASSESSMENT: * 69 yo M admitted on 06/05 secondary to a possible TIA. Pharmacy was consulted this afternoon for assistance with inpatient glycemic management. * BSGs have been elevated on just sliding scale insulin while inpatient. * Will start Novolog based on weight and stress of 2. No change to goal range. * Will give a full 24-hr weight and stress of 2 dose of Lantus now x 1 as patient is likely basal deficient. * Holding off on further Lantus for the time being as patient is NPO at midnight. PLAN FOR INPATIENT GLYCEMIC CONTROL: * Hold outpatient oral diabetes medications * Basal insulin * Lantus 40 units SQ x 1 * Bolus insulin * NovoLog per scale ACHS or Q6hrs while NPO * Goal Range: Low 100 mg/dL - High 140 mg/dL * Correction Factor: 20 mg/dL/unit * Nutritional / Prandial insulin per carb ratio of 1 unit per 7 grams CHO consumed PLAN FOR DISCHARGE: * To be determined
[2020-06-07 15:56] LABS: Partial Thromboplastin Ratio 2.4
[2020-06-07 16:03] LABS: Partial Thromboplastin Time 62.6 Seconds (21.0-31.0)
[2020-06-07] MEDS: SERTRALINE HCL 50 MG TABLET PO SCH (21:03)
[2020-06-07] MEDS: ROSUVASTATIN CALCIUM 5 MG TAB PO SCH (21:03)
[2020-06-07] MEDS: ACETAMINOPHEN 325 MG TAB PO PRN (22:35)
[2020-06-08] MEDS: INSULIN ASPART 100 UNITS/ML 3 ML PEN SC SCH ×4 (07:14→21:47)
[2020-06-08 07:56] LABS: Partial Thromboplastin Ratio 2.4
[2020-06-08 07:57] LABS: Partial Thromboplastin Time 62.6 Seconds (21.0-31.0)
[2020-06-08] MEDS ORDERED: niCARdipine HCL INJ 2.5 MG/ML 10 ML AMP ONE (07:59)
[2020-06-08] MEDS ORDERED: NITROGLYCERIN/D5W 100MCG/ML 20ML SYR ONE (07:59)
[2020-06-08] MEDS ORDERED: fentaNYL citrate 100 MCG/2 ML VIAL ONE (07:59)
[2020-06-08] MEDS ORDERED: MIDAZOLAM HCL 1 MG/ML 2ML VIAL ONE (07:59)
[2020-06-08] MEDS ORDERED: HEPARIN (PORCINE) 1000 UNIT/ML 10 ML (CATH LAB USE ONLY) ONE (07:59)
[2020-06-08] MEDS: INSULIN GLARGINE SOLOSTAR 100 UNITS/ML 3 ML PEN SC SCH ×2 (08:06→21:46)
[2020-06-08 08:10] LABS: BUN Creatinine Ratio 19.4 (10-20); Calcium 9.6 mg/dl (8.5-10.1); Creatinine Clr Calc Pharmacy 75.5 ml/min; Est GFR (African American) 74.3; Est GFR (Non-African American) 64.1; Magnesium 1.8 mg/dl (1.8-2.4); Potassium 3.7 mmol/L (3.5-5.1)
--- NOTE | 2020-06-08 08:43 | Pre Anesthesia Assessment ---
Date of Service June 08, 2020 Pre Sedation Assessment Vital Signs Temp Pulse Pulse Resp BP Pulse Ox 06/08/20 08:17 71 16 135/71 95 06/08/20 07:49 97.7 F 68 16 122/87 93 06/08/20 07:23 70 06/08/20 04:00 97.9 F 71 20 105/67 93 06/08/20 00:00 70 06/07/20 23:00 98.6 F 70 20 126/78 95 06/07/20 19:38 98.2 F 74 20 129/85 96 06/07/20 14:29 97.7 F 75 18 118/70 96 06/07/20 14:20 71 06/07/20 11:12 98.6 F 72 18 134/86 94 Cardiovascular RRR, no murmur, no edema Respiratory normal respiratory effort, lungs clear to auscultation Pre-Sedation Airway Assessment Smoking Status: Never smoker Hx Sleep Apnea: No Hx Difficult Intubation: No Short, Thick Neck: No Thyromental Distance: > or= 3.5 Finger Breadths Oral Cavity: + WNL Mallampati Class: III ASA: ASA4 NPO Status Date of Last Intake of Fluids: 06/07/20 Date of Last Intake of Solid Food: 06/07/20 Procedure Planning Contraindications for Sedation: none Current Medications Reviewed: Yes Notes The planned sedation has been discussed with the patient. Informed Consent was obtained. I have identified the patient, determined the appropriateness of sedation and have assessed the patient immediately prior to the procedure. All medicine(s) and interventions are by my order.
[2020-06-08] MEDS ORDERED: TICAGRELOR 90 MG TAB PO ONE (10:09)
--- NOTE | 2020-06-08 10:31 | Post Anesthesia Assessment ---
Date of Service June 08, 2020 Post Sedation Assessment Vital Signs Temp Pulse Pulse Resp BP Pulse Ox 06/08/20 10:24 70 18 93 06/08/20 08:17 71 16 135/71 95 06/08/20 07:49 97.7 F 68 16 122/87 93 06/08/20 07:23 70 06/08/20 04:00 97.9 F 71 20 105/67 93 06/08/20 00:00 70 06/07/20 23:00 98.6 F 70 20 126/78 95 06/07/20 19:38 98.2 F 74 20 129/85 96 06/07/20 14:29 97.7 F 75 18 118/70 96 06/07/20 14:20 71 06/07/20 11:12 98.6 F 72 18 134/86 94 Recovery Score Activity: Moves 4 extremities Respiration: Deep Breath/Cough Circulation: +/-20% PreAnes Value Consciousness: Fully Awake Oxygen Saturation: > 92% On Room Air Post Anesthesia Score: 10 Discharge Sedation Level of Care: Fast Track Phase II Post Sedation Plan On clinical assessment, the patient appears to have tolerated the sedation without complications. Patient is recovering as anticipated. Patient will continue to be monitored by nursing and may be discharged when sedation discharge criteria are met per below protocol. Upon Completions of procedure up to 15 minutes continue every 5 minute vital signs and the P.A.R. score; then discharge to a Phase I or Fast Track to Phase II per the following guidelines: * Discharge Patient to appropriate Phase II area if PAR is 8 or greater or return to pre- procedure baseline. The post - procedure orders will be as directed. * If PAR score is less than 8 or not return to pre-procedure baseline then patient will follow Phase I monitoring till PAR is reached for Phase II. The Phase I may be done in procedure room or may call to secure a Phase I area. * If naloxone or flumazenil are used for reversal, hold in Phase I for continued monitoring from when last reversal dose was given for a minimum of 60 minutes or longer pending the nurse and/or physician discretion of patient condition before discharge to Phase II. Please call the Sedation Physician to re-evaluate and complete post-note for discharge to Phase II area. Do NOT discharge from procedure sedation or Phase 1 until post- sedation evaluation note is complete by procedure /sedation MD Sedation Discharge Instructions to be given to the patient at discharge to home.
[2020-06-08] MEDS ORDERED: SODIUM CHLORIDE 0.9% 1000ML 1,000 ML IV SCH (10:45)
--- NOTE | 2020-06-08 10:50 | Cardiac Catheterization ---
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 Cardiac Status Clinical evaluation leading to the procedure CAD Presenation: Non STEMI Anginal Classification: CCS IV Heart Failure: No Cardiogenic Shock within 24 Hours: No Cardiac Arrest within 24 Hours: No Imaging Studies Past 6 Months: Yes Stress Studies Past 6 Months: No Diagnostic Physicians Name: Enrique Laguerre MD Status: Elective Closure Device Percutaneous Entry Location: Radial Closure Device: Radial Band Recommendations: PCI without planned CABG PCI Indication: PCI for high risk Non-KATHERINE Lesion Segment Name: Proximal LAD Culprit Artery: Yes Stenosis Prior to Rx (%): 80 Chronic Total Occlusion: No IVUS: Yes FFR: No Pre-Procedure JULIANA Flow: 3 Previously Treated Lesion: No Lesion Complexity: Non-High/Non-C Lesion Length (mm): 20 Thrombus Present: Yes Bifurcation Lesion: Yes Guidewire Across Lesion: Stenosis Post-Procedure (%): 0 Post-Procedure JULIANA Flow: 3 Devices(s) Deployed: Yes Yes Lesion #2 Segment Name: Proximal D3 Culprit Artery: Yes Stenosis Prior to Rx (%): 99 Chronic Total Occlusion: No IVUS: No FFR: No Pre-Procedure JULIANA Flow: 2 Previously Treated Lesion: No Lesion Complexity: Non-High/Non-C Lesion Length (mm): 10 Thrombus Present: No Bifurcation Lesion: Yes Guidewire Across Lesion: Yes Stenosis Post-Procedure (%): 10 Post-Procedure JULIANA Flow: 3 Devices(s) Deployed: Yes Intraprocedure Events Significant Disection: No Perforation: No Cardiac Cath Procedure Full Procedure Date June 08, 2020 Pre-Procedure Diagnosis Pre-Procedure Diagnosis: Non STEMI AUC Score AUC Score: 8 Post-Procedure Diagnosis Post-Procedure Diagnosis: Severe CAD, Successful PCI and Normal Intracardiac Pressures Procedure(s) Performed Procedure(s) Performed: Coronary Angiography, Left Heart Cath, Drug Eluting Stent and IVUS Pattern Assembler Enrique Laguerre MD Foundry Equipment Mechanic(s) Jamaal Estimated Blood Loss Estimated Blood Loss: 15 Medication(s) Medication(s): Fentanyl, Heparin, Lidocaine 1%, Nicardipine, Nitroglycerin and Versed Medication(s): Ticagrelor Summary of Findings Indication: High risk NSTEMI Access: 6 Fr right radial artery Catheters: Hurricane, EBU 3.5 guide, pigtail Findings: LM -Short, large caliber, luminal irregularities LAD -large caliber, 60 to 70% hazy/acute proximal stenosis, mid LAD stent widely patent with mild in-stent restenosis, 40 to 50% latemid disease after stents, distal vessel widely patent and wraps around apex. Medium caliber jailed third diagonal with 99% proximal stenosis Circumflex -medium caliber, 50% proximal OM1, 80% proximal small distal PLB. RCA -dominant, medium caliber, mid segment luminal regularities, 60% distal stenosis. 40 to 50% mid PDA. LVEDP -7 IVUS of proximal LAD Pullback revealed patent mid LAD stent with mildly calcified atherosclerotic plaque and heavy acute thrombus burden in proximal LAD up to 80% stenosis, MLA 5.0 mm. -- PCI -- Antithrombotic therapy: Heparin, ticagrelor Procedure: Left main cannulated with EBU 3.5 guide Center Consultant 50 wire passed across lesion into D3 [place] IVUS catheter placed into mid LAD with pullback confirming severe acute proximal LAD disease BMW wire placed into distal LAD Proximal D3 lesion predilated with 2.0 compliant balloon D3 dilated appropriately with mild residual stenosis and JULIANA-3 flow Proximal LAD extending back to ostium stented with 4.0 x 23 mm Xience drug- eluting stent Stent post-dilated with 5.0 noncompliant balloon Repeat IVUS showed well-expanded, well apposed stent with no apparent edge complications IC vasodilators administered for spasm Post procedure JULIANA 3 flow, stent well expanded with minimal residual stenosis and no apparent cardiac complications. Arterial Closure: TR Summary: 1. Multi-vessel coronary artery disease -Severe acute proximal LAD stenosis (heavy thrombus burden, up to 80% by IVUS). Medium third diagonal 99% stenosis 60% distal RCA 2. Normal intracardiac filling pressure 3. Successful PCI of proximal LAD with single drug-eluting stent (4.0 x 23 mm Xience; postdilated with 5.0 NC). 4. Successful angioplasty of proximal jailed third diagonal with 2.0 balloon. 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 Plan for triple therapy with aspirin, clopidogrel and anticoagulation for 1 month. Then transition to anticoagulation, clopidogrel for at least 1 year. Continue statin, and ASCVD risk factor modification Consult cardiac Rehab Hemodynamics Rest Ao:: 96/57/86 Final Ao: 138/82/105 LV: 138/7 Recommendations Recommendations: PCI without planned CABG Specimens Specimens: None Radiation Exposure (mGy) 4187 Contrast (mls) 140 Fluids (cc crystalloids) Fluids (cc crystalloids): 188 Drains Drains: None Anesthesia Moderate [id number] Procedural Complication(s) None Disposition PCU I attest to the content of the Intraoperative Record and any orders documented therein. Any exceptions are noted below. [facility] Card Cath Procedure Codes Cardiac Catheterization Procedure 1: Cardiovascular Cath Procedures: 69695 Coronaries and LHC (+/-LV) Therapeutic Services & Ancillary Proc Procedure 1: Cardiovascular Tx and Anc Procedures: 16267 IV Ultrasound (Coronary or Graft) Moderate Sedation Procedure 1: Sedation/Anesthesia: 58331 Mod Sedation by the same physician;Init15 Min Child Age 5 & Up Procedure 2: Sedation/Anesthesia: 79957 Mod Sedation by the same physician; Ea [id number] Minutes Angioplasty Procedure 1: Cardiovascular Angioplasty Procedures: 43748 PTCA; ea addl branch of a major cor art RC LC LD Stenting Procedure 1: Cardiovascular Stent Procedures: 17387 Perc transcatheter placement of intracoronary stent(s), with ang PG Care Time/CCT Total # of Minutes Spent Total Time Spent with Patient: Total time spent is greater than 50% in coordination of care (as documented) at patient's floor/unit and/or counseling patient:
[2020-06-08] MEDS ORDERED: INSULIN GLARGINE SOLOSTAR 100 UNITS/ML 3 ML PEN SC STA (11:17)
[2020-06-08] MEDS: amLODIPine BESYLATE 5 MG TAB PO SCH (11:28)
[2020-06-08] MEDS: ASPIRIN 81 MG ECTAB PO SCH (11:28)
[2020-06-08] MEDS: OLMESARTAN MEDOXOMIL 20 MG TAB PO SCH ×2 (11:28→21:42)
[2020-06-08] MEDS: BUMETANIDE 1 MG TAB PO SCH (11:28)
[2020-06-08] MEDS: METOPROLOL SUCC 50MG EXT REL TAB PO SCH (11:28)
[2020-06-08] MEDS: CEROVITE ADV FORMULA TAB PO SCH (11:28)
[2020-06-08] MEDS: PANTOprazole 40 MG TAB PO SCH (11:28)
[2020-06-08] MEDS: FOLIC ACID 1 MG TAB PO SCH (11:29)
[2020-06-08] MEDS: CYANOCOBALAMIN 500 MCG TABLET (VITAMIN B-12) PO SCH (11:29)
--- NOTE | 2020-06-08 11:38 | Pharmacy Report ---
Pharmacy Glycemic Short Note 2 - Date of Service June 08, 2020 - Glycemic Short BSG Results (Last 24 hours): 06/07/20 06/07/20 06/07/20 12:06 12:07 16:22 Glucose POC Glucose 343 H* 354 H* 247 H 06/07/20 06/08/20 06/08/20 20:13 07:08 07:15 Glucose 257 H POC Glucose 169 H 254 H 06/08/20 11:03 Glucose POC Glucose 251 H OUTPATIENT ANTIDIABETIC REGIMEN: * Glipizide 2.5 mg PO Daily (patient states he is actually taking 5 mg daily) * HbA1c = 10.2% (06/06/20) ASSESSMENT: 06/08: * Mr. Orozco received a total of 76 units of insulin yesterday (almost double what he received the previous day) * 40 units basal + 36 units bolus * BSGs were uncontrolled: [phone] mg/dL * Fasting BSG this AM was elevated at 254 mg/dL * Likely due to basal deficiency still * Patient was NPO for breakfast this AM but still gave 20 units of Lantus this AM * Lunchtime BSG was 251 mg/dL - no improvement * Will tighten correction and carb ratio * Gave another 10 units of Lantus at lunch 06/07: * 69 yo M admitted on 06/05 secondary to a possible TIA. Pharmacy was consulted this afternoon for assistance with inpatient glycemic management. * BSGs have been elevated on just sliding scale insulin while inpatient. * Will start Novolog based on weight and stress of 2. No change to goal range. * Will give a full 24-hr weight and stress of 2 dose of Lantus now x 1 as patient is likely basal deficient. * Holding off on further Lantus for the time being as patient is NPO at midnight. PLAN FOR INPATIENT GLYCEMIC CONTROL: * Hold outpatient oral diabetes medications * Basal insulin - increased * Lantus 20 units SC x 1 w/ breakfast * Lantus 10 units SC x 1 w/ lunch * Lantus 20-30 units SC BID starting at bedtime (20 units for BSG < 140 mg/dL; 25 units for BSG 140-180 mg/dL; 30 units for BSG > 180 mg/dL) * Bolus insulin - tightened CF/CR * NovoLog per scale ACHS or Q6hrs while NPO * Goal Range: Low 100 mg/dL - High 140 mg/dL * Correction Factor: 15 mg/dL/unit * Nutritional / Prandial insulin per carb ratio of 1 unit per 5 grams CHO consumed PLAN FOR DISCHARGE: * HbA1c was 10.2% from this admission. Patient will require at least basal insulin upon discharge. Will continue to titrate basal until BSGs are better controlled and then make discharge recommendation.
--- NOTE | 2020-06-08 14:33 | Cardiology Progress Note ---
Date of Service June 08, 2020 Assessment & Plan (1) CAD (coronary artery disease): Post PCI to proximal LAD, POBA to third diagonal 2. TIA 3. Chronic atrial fibrillation anticoagulation 4. Preserved LV function 5. Post BiV pacemaker 6. Type 2 diabetes Patient found today to have severe proximal LAD disease with acute thrombus as well as severe flow-limiting disease in third diagonal. Disease does not appear to be embolic in nature. Now post successful PCI. Going forward recommend triple therapy with aspirin, clopidogrel for at least 1 month. Then continue anticoagulation and clopidogrel for at least 1 year. Will defer decision regarding apixaban versus Coumadin to Dr. Mazariegos and patient's primary chief of vital statistics. Currently on ticagrelor, transition to clopidogrel prior to discharge. Will need 300mg loading dose. Admission and Anticipated Discharge Date Admission Date: June 07, 2020 Subjective Feeling well after PCI this morning. Reports minimal, resolving chest discomfort. Review of Systems Review of Systems: All systems reviewed & are unremarkable except as noted in HPI & below Physical Exam Physical Exam: General: Comfortable Lungs: Clear to auscultation bilaterally Cardiac: Regular rate and rhythm Vascular: TR band in place Abdomen: Soft, nontender Extremities: Well perfused, no peripheral edema Neuro: Nonfocal Psych: Alert orient x3, normal affect and mood Results & Data ([facility]) Vital Signs (Past 12 Hours) Vital Signs Temp Pulse Pulse Resp BP BP Pulse Ox 06/08/20 13:09 71 19 134/91 06/08/20 12:54 70 18 127/88 06/08/20 12:39 70 14 130/88 95 06/08/20 12:30 70 19 06/08/20 12:24 71 21 142/97 H 06/08/20 12:10 70 13 06/08/20 12:09 70 12 163/110 H 96 06/08/20 12:00 70 12 06/08/20 11:54 70 12 153/107 H 06/08/20 11:39 70 22 154/98 H 06/08/20 11:24 70 12 147/100 H 96 06/08/20 11:09 98.2 F 71 14 152/105 H 96 06/08/20 10:52 70 16 146/90 H 96 06/08/20 10:39 70 18 133/86 95 06/08/20 10:24 70 18 125/78 93 06/08/20 08:17 71 16 135/71 95 06/08/20 07:49 97.7 F 68 16 122/87 93 06/08/20 07:23 70 06/08/20 04:00 97.9 F 71 20 105/67 93 PG Care Time/CCT Total # of Minutes Spent Total Time Spent with Patient: Total time spent is greater than 50% in coordination of care (as documented) at patient's floor/unit and/or counseling patient: Coding Level of Care Code 48545 Subseq Hosp Care Lvl 3 Diagnoses CAD (coronary artery disease) I25.10
--- NOTE | 2020-06-08 14:49 | Electrocardiogram Report ---
Test Reason : Blood Pressure : / mmHG Vent. Rate : 070 BPM Atrial Rate : 046 BPM P-R Int : 000 ms QRS Dur : 156 ms QT Int : 464 ms P-R-T Axes : 000 228 082 degrees QTc Int : 501 ms Ventricular-paced rhythm Biventricular pacemaker detected Abnormal ECG When compared with ECG of 06-JUN-2020 21:57, No significant change was found Confirmed by Heriberto Michael ([id number]) on 06/08/2020 2:49:19 PM Referred By: REFERRED SELF Confirmed By:Heriberto Michael
[2020-06-08] MEDS ORDERED: TICAGRELOR 90 MG TAB PO SCH (20:42)
[2020-06-08] MEDS ORDERED: ROSUVASTATIN CALCIUM 20 MG TAB PO SCH (21:00)
[2020-06-08] MEDS: APIXABAN 5 MG TABLET PO SCH (21:42)
[2020-06-08] MEDS: SERTRALINE HCL 50 MG TABLET PO SCH (21:43)
--- NOTE | 2020-06-08 21:51 | Hospitalist Progress Note ---
Date of Service June 08, 2020 Assessment & Plan (1) Elevated troponin: 0.077-which eventually peaked at 16.9 patient transitioned from Eliquis to heparin drip cardiology consultations in agreement for possible catheterization the consult is as below agreement that the patient needs a cardiac catheterization. He has had progressive anginal symptoms since February. In fact he has had resting anginal symptoms at home. We will try to obtain his records from [facility] to determine his last catheterization that was done there 2 to 3 years ago. I discussed the risks and benefits of cardiac catheterization with him in detail. He is on appropriate medical regiment. His LDL is very good. The question is did he have an embolic event that led to a TIA and a coronary embolus or that he just had a plaque rupture leading to both events. If we think he had an embolic event and the catheterization may help us then one would say that he failed apixaban and should be switched over to Coumadin with an INR of 2-1/2-3-1/2. He needs aggressive risk factor modification with regards to his diabetes. In addition he has unexplained weight loss which may just be related to increased diuresis related to his diabetes. 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 s/p PCI to proximal LAD, POBA to third diagonal To PCU for continued monitoring Loaded with ticagrelor 180 mg in Certified Ethical Hacker We will plan to transition to clopidogrel before discharge. Plan for triple therapy with aspirin, clopidogrel and anticoagulation for 1 month. Then transition to anticoagulation, clopidogrel for at least 1 year. Continue statin, and ASCVD risk factor modification (2) CAD (coronary artery disease): [place] in 2008 with stents to the LAD. . 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 -Claims to have recently passed stress test (within the last 2 weeks according to danna) -> pending records - Continue home beta-aminah, ARB, and statin - Patient says he was told *not* to take ASA by his PCP due to being on anticoagulation, baby aspirin was started due to concern for TIA (3) TIA (transient ischemic attack): Possible TIA, was seen by Neurology feels TIA-like episode characterized by transient vision disturbance, possibly 6th nerve palsy, but occurring with associated left facial numbness and paresthesia. Pontine tegmentum/brainstem localization. Symptoms were short-lived and occur in the context of significant hypertension. Patient does have atrial fibrillation, on Eliquis, history of biventricular cardiac pacemaker as well. Unfortunately, unable to have brain MRI. Daily low-dose aspirin has been added to patient's medication regimen which is reasonable. He will continue with Eliquis and Crestor as well. Continue medical management of hypertension. Patient has an incidental less than 50% stenosis of the left internal carotid artery as well. This vascular lesion would not require surgical intervention or stenting at this time. Periodic outpatient monitoring with ultrasound would be reasonable. Diabetic peripheral neuropathy: This patient has what looks like a severe diabetic peripheral neuropathy with associated sensory ataxia. His diabetes is poorly controlled, most recent hemoglobin A1c was 10.2. His diabetes will likely need more aggressive management, will likely require insulin. Patient will need to follow-up with his PCP and possibly endocrinology for this issue. Would consider obtaining an outpatient EMG of the lower extremities to get a more objective assessment of the status of what looks like a significant peripheral neuropathy (4) Atrial fibrillation: S/p ablation with Bi-V pacemaker. -Patient transition to heparin drip for possible cardiac catheterization - Continue home beta-aminah (5) Left-sided sensorineural hearing loss: Going on for at least 3 months this continues to be persistent - ? Meniere's disease a possibility given his episodic vertigo, hearing loss, and tinnitus. Reached out to ENT for thoughts: * Refer to ENT on discharge for audiology testing and follow-up * meclizine PRN for vertigo (6) Vertigo: Ongoing for at least 2 months, possibly longer with it seeming to correlate with his left-sided hearing loss. Worsens if he looks left or right. - PT for Giovana-Hallpike and Giles maneuver, though my concern for BPPV is a bit lower. (7) Diabetes: home regimen is glipizide at 5 mg PO BID (4x his prescribed dose) because his PCP told him his blood sugar was "high," though he doesn't check it at home. Has significant peripheral neuropathy. -A1c is 10, - Sliding scale insulin for glycemic management will likely require ether insulin or GLP-1. (8) REGLA (obstructive sleep apnea): Uses home CPAP, but does not know his settings. - CPAP ordered with RT to adjust settings as needed (9) Thoracic aortic aneurysm: CTA neck on 06/05 noted a 4.8 cm ascending thoracic aorta aneurysm. I do not think his chronic chest pain represents symptoms from this. Per guidelines, until this is >5.5 cm, it would not require repair. - Routine outpatient monitoring (10) DVT prophylaxis: STATED ABOVE Admission and Anticipated Discharge Date Admission Date: June 07, 2020 Subjective Patient reports feeling well. He has no new complaints at this time. Review of Systems Review of Systems: All systems reviewed & are unremarkable except as noted in HPI & below Physical Exam Physical Exam: The patient appeared well nourished and normally developed. Vital signs as documented. Head exam is normocephalic atraumatic no scleral icterus Neck is without JVD, thyromegaly, or carotid bruits. Lungs are clear to auscultation, no focal loss of breath sounds Cardiac exam, Rhythm is regular.. No murmurs, rubs or gallops. Abdominal exam reveals normal bowel sounds, soft non tender, no masses Extremities are nonedematous and both pedal pulses are present Neurologic exam is alert and oriented, claims decreased hearing acuity left ear Skin is without bruises or rashes Psychologically is without concerns for anxiety or depression Results & Data Results & Data ([facility]) Vital Signs (Past 12 Hours) Vital Signs Temp Pulse Pulse Resp BP BP Pulse Ox 06/08/20 18:00 71 17 06/08/20 17:46 77 16 122/77 97 06/08/20 17:13 70 18 06/08/20 16:14 70 19 06/08/20 16:13 36.7 C 70 19 123/81 95 06/08/20 15:13 36.7 C 71 18 116/83 96 06/08/20 14:13 73 13 105/66 06/08/20 14:00 70 15 06/08/20 13:10 71 14 06/08/20 13:09 71 19 134/91 06/08/20 12:54 70 18 127/88 06/08/20 12:39 70 14 130/88 95 06/08/20 12:30 70 19 06/08/20 12:24 71 21 142/97 H 06/08/20 12:10 70 13 06/08/20 12:09 70 12 163/110 H 96 06/08/20 12:00 70 12 06/08/20 11:54 70 12 153/107 H 06/08/20 11:39 70 22 154/98 H 06/08/20 11:24 70 12 147/100 H 96 06/08/20 11:09 36.8 C 71 14 152/105 H 96 06/08/20 10:52 70 16 146/90 H 96 06/08/20 10:39 70 18 133/86 95 06/08/20 10:24 70 18 125/78 93 PG Care Time/CCT Total # of Minutes Spent Total Time Spent with Patient: Total time spent is greater than 50% in coordination of care (as documented) at patient's floor/unit and/or counseling patient: Coding Level of Care Code 20337 Subseq Hosp Care Lvl 3 Diagnoses Elevated troponin R77.8 CAD (coronary artery disease) I25.10 TIA (transient ischemic attack) G45.9 Atrial fibrillation I48.91 Left-sided sensorineural hearing loss H90.5 Vertigo R42 Diabetes E11.9 REGLA (obstructive sleep apnea) G47.33 Thoracic aortic aneurysm I71.2 DVT prophylaxis Z29.9 Time Spent (min) 35
[2020-06-09 05:04] LABS: Basophils # (auto) 0.02 K/uL (0-0.2); Basophils % (auto) 0.2 %; Eosinophils # (auto) 0.15 K/uL (0-0.5); Eosinophils % (auto) 1.7 %; Hematocrit (blood only) 46.5 % (42-52); Immature Granulocytes # (auto) 0.02 K/uL (0.00-0.02); Immature Granulocytes % (auto) 0.2 %; Lymphocytes # (auto) 1.91 K/uL (1.2-3.4); Lymphocytes % (auto) 22.2 %; Mean Corpuscular Hemoglobin 30.7 pg (25-34); Mean Corpuscular Hgb Conc 34.4 g/dL (32-36); Mean Corpuscular Volume 89.3 fL (80-100); Mean Platelet Volume 9.8 fL (7.4-10.4); Monocytes # (auto) 0.73 K/uL (0.11-0.59); Monocytes % (auto) 8.5 %; Neutrophils # (auto) 5.78 K/uL (1.4-6.5); Neutrophils % (auto) 67.2 %; Platelet Count 132 K/uL (130-400); RDW Coefficient of Variation 13.1 % (11.5-14.5); RDW Standard Deviation 42.6 fL (36.4-46.3); Red Blood Count 5.21 M/uL (4.7-6.1); White Blood Count 8.61 K/uL (4.8-10.8)
[2020-06-09 05:28] LABS: BUN Creatinine Ratio 20.4 (10-20); Calcium 8.9 mg/dl (8.5-10.1); Est GFR (African American) 78.4; Est GFR (Non-African American) 67.7; Magnesium 1.8 mg/dl (1.8-2.4); Potassium 3.7 mmol/L (3.5-5.1)
[2020-06-09] MEDS: INSULIN ASPART 100 UNITS/ML 3 ML PEN SC SCH ×2 (08:05→11:38)
[2020-06-09] MEDS ORDERED: CLOPIDOGREL BISULFATE 300 MG TAB PO ONE (08:05)
[2020-06-09] MEDS: CEROVITE ADV FORMULA TAB PO SCH (08:07)
[2020-06-09] MEDS: BUMETANIDE 1 MG TAB PO SCH (08:07)
[2020-06-09] MEDS: CYANOCOBALAMIN 500 MCG TABLET (VITAMIN B-12) PO SCH (08:07)
[2020-06-09] MEDS: ASPIRIN 81 MG ECTAB PO SCH (08:07)
[2020-06-09] MEDS: amLODIPine BESYLATE 5 MG TAB PO SCH (08:08)
[2020-06-09] MEDS: APIXABAN 5 MG TABLET PO SCH (08:08)
[2020-06-09] MEDS: OLMESARTAN MEDOXOMIL 20 MG TAB PO SCH (08:08)
[2020-06-09] MEDS: PANTOprazole 40 MG TAB PO SCH (08:08)
[2020-06-09] MEDS: FOLIC ACID 1 MG TAB PO SCH (08:08)
[2020-06-09] MEDS: METOPROLOL SUCC 50MG EXT REL TAB PO SCH (08:08)
[2020-06-09] MEDS: ACETAMINOPHEN 325 MG TAB PO PRN (08:10)
[2020-06-09] MEDS ORDERED: INSULIN GLARGINE SOLOSTAR 100 UNITS/ML 3 ML PEN SC SCH (09:00)
--- NOTE | 2020-06-09 09:31 | Cardiology Progress Note ---
Date of Service June 09, 2020 Assessment & Plan (1) CAD (coronary artery disease): (1) TIA (transient ischemic attack):Probable TIA localizing to the pontine tegmentum/brainstem. (2) Diabetic peripheral neuropathy: 3a. Non-ST elevation myocardial infarction 3. Coronary disease status post angioplasty and stenting in [address] [facility] secondary to an LAD infarct 4. 2 subsequent cardiac catheterizations according to the patient without any intervention 5. Biventricular pacemaker which is a Medtronic device 6. Chronic atrial fibrillation on apixaban 5 mg twice daily as an outpatient 7. Unknown left ventricular systolic function 8. Previous ablation for unknown arrhythmia at [facility] in [place] Patient found today to have severe proximal LAD disease with acute thrombus as well as severe flow-limiting disease in third diagonal. Disease does not appear to be embolic in nature. Now post successful PCI. Echo reveals EF 55-60% Going forward recommend triple therapy with aspirin, clopidogrel for at least 1 month. His ticagrelor was dc'd and a loading dose of 600 mg of Plavix was given this morning and he can proceed with 75 mg daily starting tomorrow. He will continue anticoagulation and clopidogrel for at least 1 year. He could switch to ASA and Eliquis after a year at that point. I discussed with him the importance of not missing doses of his antiplatelet agents. He is on appropriate medical regiment. His LDL is very good. He needs aggressi ve risk factor modification with regards to his diabetes. In addition he has unexplained weight loss which may just be related to increased diuresis related to his diabetes. 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 He is acceptable for discharge from a cardiology standpoint. Admission and Anticipated Discharge Date Admission Date: June 07, 2020 Subjective Mr. Quinones is feeling well today. He did have some burning left chest pain while laying in bed this morning but it has resolved. No further chest pressure or radiation into arms and throat. VSS. Pacing on the monitor. Review of Systems Review of Systems: All systems reviewed & are unremarkable except as noted in HPI & below Physical Exam Constitutional: WD/WN, vitals as above Respiratory: normal respiratory effort, lungs clear to auscultation Cardiovascular: RRR, no murmur, no edema Skin: no rashes, warm and dry Neurologic: moves all extremities and awake Psychiatric: A+Ox3, euthymic affect Results & Data ([facility]) Vital Signs (Past 12 Hours) Vital Signs Temp Pulse Resp BP Pulse Ox 06/09/20 04:52 36.6 C 73 15 112/61 96 06/09/20 01:00 36.6 C 71 21 104/56 L 94
--- NOTE | 2020-06-09 10:13 | Pharmacy Report ---
Pharmacy Glycemic Short Note 2 - Date of Service June 09, 2020 - Glycemic Short BSG Results (Last 24 hours): 06/08/20 06/08/20 06/08/20 11:03 15:54 21:44 Glucose POC Glucose 251 H 257 H 161 H 06/09/20 06/09/20 04:25 07:29 Glucose 208 H POC Glucose 212 H OUTPATIENT ANTIDIABETIC REGIMEN: * Glipizide 2.5 mg PO Daily (patient states he is actually taking 5 mg daily) * HbA1c = 10.2% (06/06/20) ASSESSMENT: 06/09: * 98 units SQ insulin administered over last 24 hrs while patient tolerating his diet * Fasting BSG 212 this AM w/ 55 units basal insulin on board, will continue to up-titrate * Post-prandial BSGs did not climb substantially, however given the patient's daily insulin requirements he does likely require higher Novolog doses * Estimated total daily insulin requirements ~120 units 06/08: * Mr. Orozco received a total of 76 units of insulin yesterday (almost double what he received the previous day) * 40 units basal + 36 units bolus * BSGs were uncontrolled: [phone] mg/dL * Fasting BSG this AM was elevated at 254 mg/dL * Likely due to basal deficiency still * Patient was NPO for breakfast this AM but still gave 20 units of Lantus this AM * Lunchtime BSG was 251 mg/dL - no improvement * Will tighten correction and carb ratio * Gave another 10 units of Lantus at lunch 06/07: * 69 yo M admitted on 06/05 secondary to a possible TIA. Pharmacy was consulted this afternoon for assistance with inpatient glycemic management. * BSGs have been elevated on just sliding scale insulin while inpatient. * Will start Novolog based on weight and stress of 2. No change to goal range. * Will give a full 24-hr weight and stress of 2 dose of Lantus now x 1 as patient is likely basal deficient. * Holding off on further Lantus for the time being as patient is NPO at midnight. PLAN FOR INPATIENT GLYCEMIC CONTROL: * Hold outpatient oral diabetes medications * Basal insulin - increased * Lantus 30 units SC BID * Bolus insulin - increased * NovoLog per scale ACHS or Q6hrs while NPO * Goal Range: Low 110 mg/dL - High 140 mg/dL * Correction Factor: 12 mg/dL/unit * Nutritional / Prandial insulin per carb ratio of 1 unit per 4 grams CHO consumed PLAN FOR DISCHARGE: * HbA1c was 10.2% from this admission indicating need for alteration of home regimen. ADA recommends consideration of triple therapy on discharge. * Recommend initiation of metformin + (GLP-1 receptor agonist) on discharge in addition to home glipizide. * Metformin XR 500mg PO daily is typically better tolerated than IR formulation. Dose should be titrated upwards by outpt provider. * GLP1 RA options with strongest evidence for reducing CVD events = liraglutide > semaglutide > exenatide ER. Treatment choice should be guided by patient preference and insurance coverage. * Glipizide 2.5mg daily could be increased to 5mg daily on discharge with further upwards titration per outpt provider.
[2020-06-09] MEDS ORDERED: INSULIN GLARGINE SOLOSTAR 100 UNITS/ML 3 ML PEN SC ONE (11:45)
[2020-06-10] MEDS ORDERED: CLOPIDOGREL BISULFATE 75 MG TAB PO SCH (09:00)
--- NOTE | 2020-06-10 10:20 | Discharge Summary ---
Date of Service June 09, 2020 Admission HPI Per Admitting Provider 69yo M w/ hx of CAD, afib, pacemaker, possible CHF, and DM who presents as a possible TIA. His history is convoluted, and he intermixes a variety of symptoms that make it somewhat hard to differentiate acute from chronic issues. He reports that over the last 2 months or so, he has had vestibular symptoms. This has included left-sided hearing loss and vertigo. He reports the hearing loss is nearly complete on the left side and has not waxed or waned in the last few months. He also notes that he has some vertigo symptoms where when he looks to the left or right, he gets transient vertigo. His PCP gave him a 10-day course of steroids approx. 1 month ago (but [facility], it looks like it was in February). He reports this helped some, but that it has gotten worse again since taking the steroids. He says that because of the vertigo, he has started to stumble and have some trouble walking. He also had a fall about 1 week ago, though he denies any loss of consciousness at the time. He also reports chest pain that he says he "always" has. This pain is located in the central sternum and does not have any associated factors and does not wax or wane. However, he had a *different* chest pain on Monday of this week that he says spread across his chest and went down his bilateral arms. He took a nitroglycerin tablet and it improved, but he says it came back about 30 minutes later. When it came back, he did not take another nitro and did not contact his physician, but he says it went away after a while. He reports he had a stress test with his usual honey processor, Ms. Aislinn Madrigal which was normal. Finally, the thing that brought him to the ED today was an episode of visual changes, left jaw numbness, and worsening stumbling. 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 [place] he was driving to the airport, he had an episode where he said he could not see the car driving toward him until it was almost past him. Around the same time, he had a second or two of left jaw numbness that passed without any treatment. When he got out of his truck, he said he was staggering around and his boss made him come to the hospital. At present, his vision has returned to normal. He no longer has any flashes, floaters, or other acute eye symptoms. With his glasses, he can read near and far and says his vision is at his baseline. He no longer has any left jaw numbness. He reports he does have chest pain, but it is his normal, daily chest pain. He reports he still has some vertigo symptoms if he moves his head, but this is also the chronic issue. He reports some continued stumbling, but is unclear on if this is baseline or not. Principal Diagnosis NSTEMI Discharge Exam The patient appeared well nourished and normally developed. Vital signs as documented. Head exam is normocephalic atraumatic no scleral icterus Neck is without JVD, thyromegaly, or carotid bruits. Lungs are clear to auscultation, no focal loss of breath sounds Cardiac exam, Rhythm is regular.. No murmurs, rubs or gallops. Abdominal exam reveals normal bowel sounds, soft non tender, no masses Extremities are nonedematous and both pedal pulses are present Neurologic exam is alert and oriented, claims decreased hearing acuity left ear Skin is without bruises or rashes Psychologically is without concerns for anxiety or depression Discharge Data Allergies Allergy/AdvReac Type Severity Reaction Status Date / Time No Known Allergies Allergy Unverified 06/05/20 09:58 Consultations 06/05/20 12:15 ED Decision to Admit Stat 06/05/20 16:21 Consult Health Information Management Routine Consult Neurology Routine 06/07/20 07:51 Consult Cardiology Routine 06/07/20 13:05 Consult Cardiac Catheterization Routine 06/08/20 10:42 Consult Cardiac Rehabilitation Routine Procedures Performed Operation Date: 06/08/20 09:30 Actual Procedures s Cineradiography w/Routine Exam - Kam Laguerre MD p Cath, Left with Cors and Vent - Kam Laguerre MD s IVUS Coronary Single Vessel - Kam Laguerre MD s Drug Eluting Stent SGl Vessel - Kam Laguerre MD s POBA SGL Vessel - Kam Laguerre MD Ordered Studies 06/05/20 09:09 CT angio head w con Stat CT angio neck with con Stat CT head/brain wo con Stat 06/08/20 07:48 CL Cath Imgs for PACS use only Routine 06/08/20 10:23 CL IVUS Coronary Single Vessel Stat Diabetes Follow up Diabetes Follow-up Needed for HgbA1c >9% Hospital Course (1) Elevated troponin: NSTEMI 0.077-which eventually peaked at 16.9 patient transitioned from Eliquis to heparin drip cardiology consultations in agreement for possible catheterization the consult is as below agreement that the patient needs a cardiac catheterization. He has had progressive anginal symptoms since February. In fact he has had resting anginal symptoms at home. We will try to obtain his records from [facility] to determine his last catheterization that was done there 2 to 3 years ago. I discussed the risks and benefits of cardiac catheterization with him in detail. He is on appropriate medical regiment. His LDL is very good. The question is did he have an embolic event that led to a TIA and a coronary embolus or that he just had a plaque rupture leading to both events. If we think he had an embolic event and the catheterization may help us then one would say that he failed apixaban and should be switched over to Coumadin with an INR of 2-1/2-3-1/2. He needs aggressive risk factor modification with regards to his diabetes. In addition he has unexplained weight loss which may just be related to increased diuresis related to his diabetes. 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 s/p PCI to proximal LAD, POBA to third diagonal To PCU for continued monitoring Loaded with ticagrelor 180 mg in [employer] We will plan to transition to clopidogrel before discharge. Plan for triple therapy with aspirin, clopidogrel and anticoagulation for 1 month. Then transition to anticoagulation, clopidogrel for at least 1 year. Continue statin, and ASCVD risk factor modification On 06/09, patient was acceptable for discharge, Input from cardio in [place]: (1) CAD (coronary artery disease): (1) TIA (transient ischemic attack):Probable TIA localizing to the pontine tegmentum/brainstem. (2) Diabetic peripheral neuropathy: 3a. Non-ST elevation myocardial infarction 3. Coronary disease status post angioplasty and stenting in 2008 at [facility] secondary to an LAD infarct 4. 2 subsequent cardiac catheterizations according to the patient without any intervention 5. Biventricular pacemaker which is a Medtronic device 6. Chronic atrial fibrillation on apixaban 5 mg twice daily as an outpatient 7. Unknown left ventricular systolic function 8. Previous ablation for unknown arrhythmia at [facility] in [place] Patient found today to have severe proximal LAD disease with acute thrombus as well as severe flow-limiting disease in third diagonal. Disease does not appear to be embolic in nature. Now post successful PCI. Echo reveals EF 55-60% Going forward recommend triple therapy with aspirin, clopidogrel for at least 1 month. His ticagrelor was dc'd and a loading dose of 600 mg of Plavix was given this morning and he can proceed with 75 mg daily starting tomorrow. He will continue anticoagulation and clopidogrel for at least 1 year. He could switch to ASA and Eliquis after a year at that point. I discussed with him the importance of not missing doses of his antiplatelet agents. He is on appropriate medical regiment. His LDL is very good. He needs aggres sive risk factor modification with regards to his diabetes. In addition he has unexplained weight loss which may just be related to increased diuresis related to his diabetes. 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 (2) CAD (coronary artery disease): [facility] [place] with stents to the LAD. . Usual honey processor is AALIYAH Hutchison out of [facility]. -Claims to have recently passed stress test (within the last 2 weeks according louis clay) -> pending records - Continue home beta-aminah, ARB, and statin - Patient says he was told *not* to take ASA by his PCP due to being on anticoagulation, baby aspirin was started due to concern for TIA (3) TIA (transient ischemic attack): Possible TIA, was seen by Neurology feels TIA-like episode characterized by transient vision disturbance, possibly 6th nerve palsy, but occurring with associated left facial numbness and paresthesia. Pontine tegmentum/brainstem localization. Symptoms were short-lived and occur in the context of significant hypertension. Patient does have atrial fibrillation, on Eliquis, history of biventricular cardiac pacemaker as well. Unfortunately, unable to have brain MRI. Daily low-dose aspirin has been added to patient's medication regimen which is reasonable. He will continue with Eliquis and Crestor as well. Continue medical management of hypertension. Patient has an incidental less than 50% stenosis of the left internal carotid artery as well. This vascular lesion would not require surgical intervention or stenting at this time. Periodic outpatient monitoring with ultrasound would be reasonable. Diabetic peripheral neuropathy: This patient has what looks like a severe diabetic peripheral neuropathy with associated sensory ataxia. His diabetes is poorly controlled, most recent hemoglobin A1c was 10.2. His diabetes will likely need more aggressive management, will likely require insulin. Patient will need to follow-up with his PCP and possibly endocrinology for this issue. Would consider obtaining an outpatient EMG of the lower extremities to get a more objective assessment of the status of what looks like a significant peripheral neuropathy (4) Atrial fibrillation: S/p ablation with Bi-V pacemaker. -Patient transition to heparin drip for possible cardiac catheterization - Continue home beta-aminah (5) Left-sided sensorineural hearing loss: Going on for at least 3 months this continues to be persistent - ? Meniere's disease a possibility given his episodic vertigo, hearing loss, and tinnitus. Reached out to ENT for thoughts: * Refer to ENT on discharge for audiology testing and follow-up * meclizine PRN for vertigo (6) Vertigo: Ongoing for at least 2 months, possibly longer with it seeming to correlate with his left-sided hearing loss. Worsens if he looks left or right. - PT for Giovana-Hallpike and Giles maneuver, though my concern for BPPV is a bit lower. (7) Diabetes: home regimen is glipizide at 5 mg PO BID (4x his prescribed dose) because his PCP told him his blood sugar was "high," though he doesn't check it at home. Has significant peripheral neuropathy. -A1c is 10, - Sliding scale insulin for glycemic management will likely require ether insulin or GLP-1. (8) REGLA (obstructive sleep apnea): Uses home CPAP, but does not know his settings. - CPAP ordered with RT to adjust settings as needed (9) Thoracic aortic aneurysm: CTA neck on 06/05 noted a 4.8 cm ascending thoracic aorta aneurysm. I do not think his chronic chest pain represents symptoms from this. Per guidelines, until this is >5.5 cm, it would not require repair. - Routine outpatient monitoring (10) DVT prophylaxis: STATED ABOVE Total Time Total Time Spent Total Time Spent (In Minutes): 32 Total Time Includes: Examination of the Patient, Discharge Planning and Medication Reconciliation Discharge Plan Discharge Items Patient Disposition: Home - Self-Care Reason For Visit: POSSIBLE TIA Discharge Diagnosis: possble TIA Activity: Resume your previous activity Non-emergency contact: Primary Care Provider Call non-emergency contact if: you have any medication questions Follow-up/Referrals: Nelson Mckeon, [Primary Care Provider] - (DR ALCALA OFFICE WILL CALL YOU WITH A FOLLOW UP APT.) Diet: Carb Consistent or DM2 and Low Sodium (2gm) Addtl Attending Provider Instructions: Home Care: * Take your medications exactly as directed. Don't skip doses. * Remember that recovery after a heart attack takes time. Plan to rest for at lease 4-8 weeks while you recover. Then return to normal activity when your doctor says it's okay. * Ask your doctor about joining a heart rehabilitation program. * Tell your doctor if you are feeling depressed. Feelings of sadness are common after a heart attack, but it is important that you speak to someone if you are feeling overwhelmed by these feelings. * If you are having chest pain, call 911 for an ambulance. Do NOT drive yourself to the hospital. * Ask your family members to learn CPR. * Learn to take your own blood pressure and pulse. Keep a record of your results. Ask your doctor when you should seek emergency medical attention. He or she will tell you which blood pressure reading is dangerous. Lifestyle Changes: * Maintain a healthy weight. Get help to lose any extra pounds. * Cut back on salt. * Limit canned, dried, packaged, and fast foods. * Don't add salt to your food. * Season foods with herbs instead of salt when you cook. * Break the smoking habit. Enroll in a stop-smoking program to improve your chances of success. * Limit fatty foods. * Ask your doctor about having your lipid levels checked regularly. * Build up your activity according to your doctor's recommendation. * Ask your doctor when it's okay to resume sexual activity. * Tell your doctor about any erectile dysfunction (ED) medication you are taking. Some ED medications are not safe if you take certain heart medications. * Try to manage stress. Follow Up: It is important for you to keep your follow up appointments with your medical provider. Going forward recommend triple therapy with aspirin, clopidogrel for at least 1 month. Then continue anticoagulation and clopidogrel for at least 1 year. Pending Studies at Discharge: No Stand-Alone Forms: My [facility], Smoking Cessation Medications and DC Order Prescriptions: New clopidogrel 75 mg Tablet 75 mg PO QAM Qty: 30 RF: 0 metformin 750 mg tablet extended release 24 hr 750 mg PO DAILY Qty: 30 RF: 0 liraglutide 0.6 mg/0.1 mL (18 mg/3 mL) pen injector See Rx Instructions .ROUTE .COMPLEX Qty: 6 RF: 0 (DME) OneTouch Ultra Blue Test Strip Strip See Rx Instructions .ROUTE .MEDSUPPLY Qty: 100 RF: 0 (DME) lancets Misc See Rx Instructions .ROUTE .MEDSUPPLY Qty: 100 RF: 0 glipizide 5 mg tablet 5 mg PO DAILY Qty: 30 RF: 0 Continued omeprazole 20 mg capsule,delayed release(DR/EC) 20 mg PO QAM RF: 0 rosuvastatin 5 mg tablet 5 mg PO HS RF: 0 bumetanide 2 mg Tablet 2 mg PO QAM RF: 0 metoprolol succinate 50 mg tablet extended release 24 hr 50 mg PO QAM RF: 0 cyanocobalamin (vitamin B-12) [Vitamin B-12] 1,000 mcg Tablet 1,000 mcg PO QAM RF: 0 amlodipine [Norvasc] 5 mg tablet 5 mg PO QAM RF: 0 potassium 99 mg Tablet 99 mg PO QAM RF: 0 vitamin E 400 unit Tablet 45 mg PO QAM RF: 0 nitroglycerin [Nitrostat] 0.4 mg Tablet, Sublingual 0.4 mg sublingual Q5M PRN (Reason: Chest Pain) RF: 0 folic acid 1 mg tablet 1 mg PO QAM RF: 0 sertraline 50 mg tablet 50 mg PO HS RF: 0 olmesartan [Benicar] 20 mg tablet 20 mg PO BID RF: 0 Qutenza 8 % Kit 2 ea TOPICAL Q90D RF: 0 One-A-Day Men's 50 Plus 400-20-370 mcg Tablet 1 tab PO QAM RF: 0 Eliquis 5 mg tablet 5 mg PO BID RF: 0 Discharge Orders: Discharge Order (Routine); Ordered 06/09/20 Ordered By: Apolinar Ellison/Other Patient Handouts: Managing Type 2 Diabetes, 5 Steps for Eating Healthier, Managing Diabetes: The A1C Test Admission Data Admit Date/Time: 06/07/20 15:38 Attending Provider: Apolinar High Admit Provider: Augustus Simmons Primary Care Provider: Nelson Mckeno Other Providers: Augustus Simmons ; Bong Hayward ; Andre Mazariegos ; Kam Laguerre Other Interventions: Discharge Summary Assessment (RN) Last Done: 06/09/20 14:58 Coding Level of Care Code D/C Day Management >30 mins Diagnoses Elevated troponin R77.8 CAD (coronary artery disease) I25.10 TIA (transient ischemic attack) G45.9 Atrial fibrillation I48.91 Left-sided sensorineural hearing loss H90.5 Vertigo R42 Diabetes E11.9 REGLA (obstructive sleep apnea) G47.33 Thoracic aortic aneurysm I71.2 DVT prophylaxis Z29.9
== END 2020-06-09 16:45 | disposition home or self-care (01) | DRG 247 ==
LOC: ED 08:28 → 2W 08:28 → SUATTDRO 12:40 → 2W 15:33 → SUATTDRO 06-07 15:38 → 1E 06-08 10:18

== ENCOUNTER 2024-06-17 08:47 | Inpatient (IN) ==
--- NOTE | 2024-05-15 12:25 | PAT Medication Instructions ---
Medication Instructions Date of Service May 15, 2024 Home Medications Medication Instructions Recorded blood sugar diagnostic (OneTouch #100 ea 06/09/20 Ultra Blue Test Strip) glipizide 5 mg tablet 5 mg PO DAILY #30 tabs 06/09/20 lancets #100 ea 06/09/20 amlodipine 5 mg tablet (Norvasc) 5 mg PO QAM apixaban 5 mg tablet (Eliquis) 5 mg PO BID bumetanide 2 mg tablet 2 mg PO QAM cyanocobalamin (vitamin B-12) 1,000 mcg tablet (Vitamin B-12) 1,000 mcg PO QAM folic acid 1 mg tablet 1 mg PO QAM metoprolol succinate 50 mg tablet,extended release 24 hr 50 mg PO QAM tcoaptvfywes-jcd-grwad acid-vit K-lycop 400 mcg-20 mcg-370 mcg tablet (One-A-Day Men's 50 Plus (with vitamin K)) 1 tab PO QAM nitroglycerin 0.4 mg sublingual tablet (Nitrostat) 0.4 mg sublingual Q5M PRN olmesartan 20 mg tablet (Benicar) 20 mg PO QAM rosuvastatin 5 mg tablet 20 mg PO HS sertraline 50 mg tablet 50 mg PO HS glipizide 5 mg tablet 5 mg PO DAILY carvedilol 6.25 mg tablet 6.25 mg PO BID empagliflozin 10 mg tablet (Jardiance) 10 mg PO QAM ezetimibe 10 mg tablet 10 mg PO QAM STOP 3 days before surgery empagliflozin 10 mg tablet (Jardiance) 10 mg PO QAM Continue as directed nitroglycerin 0.4 mg sublingual tablet (Nitrostat) 0.4 mg sublingual Q5M PRN(if needed) ASK your prescriber and surgeon apixaban 5 mg tablet (Eliquis) 5 mg PO BID clopidogrel (Plavix) DO NOT take the morning of surgery bumetanide 2 mg tablet 2 mg PO QAM cyanocobalamin (vitamin B-12) 1,000 mcg tablet (Vitamin B-12) 1,000 mcg PO QAM folic acid 1 mg tablet 1 mg PO QAM pyerkycomrxv-fce-tovey acid-vit K-lycop 400 mcg-20 mcg-370 mcg tablet (One-A-Day Men's 50 Plus (with vitamin K)) 1 tab PO QAM olmesartan 20 mg tablet (Benicar) 20 mg PO QAM glipizide 5 mg tablet 5 mg PO DAILY Take morning of surgery With a small sip of water, OTHERWISE NOTHING TO EAT OR DRINK AFTER MIDNIGHT: amlodipine 5 mg tablet (Norvasc) 5 mg PO QAM metoprolol succinate 50 mg tablet,extended release 24 hr 50 mg PO QAM carvedilol 6.25 mg tablet 6.25 mg PO BID ezetimibe 10 mg tablet 10 mg PO QAM Take evening before surgery rosuvastatin 5 mg tablet 20 mg PO HS sertraline 50 mg tablet 50 mg PO HS carvedilol 6.25 mg tablet 6.25 mg PO BID Other Notes If you have any questions please call us at [phone] or [phone] or [phone] or [phone]
--- NOTE | 2024-05-15 13:20 | PAT Medication Instructions ---
Medication Instructions Date of Service May 15, 2024 Home Medications Medication Instructions Recorded blood sugar diagnostic (OneTouch #100 ea 06/09/20 Ultra Blue Test Strip) glipizide 5 mg tablet 5 mg PO DAILY #30 tabs 06/09/20 lancets #100 ea 06/09/20 amlodipine 5 mg tablet (Norvasc) 5 mg PO QAM apixaban 5 mg tablet (Eliquis) 5 mg PO BID bumetanide 2 mg tablet 2 mg PO QAM cyanocobalamin (vitamin B-12) 1,000 mcg tablet (Vitamin B-12) 1,000 mcg PO QAM folic acid 1 mg tablet 1 mg PO QAM metoprolol succinate 50 mg tablet,extended release 24 hr 50 mg PO QAM ggpcqwvjibhb-xrz-tygcl acid-vit K-lycop 400 mcg-20 mcg-370 mcg tablet (One-A-Day Men's 50 Plus (with vitamin K)) 1 tab PO QAM nitroglycerin 0.4 mg sublingual tablet (Nitrostat) 0.4 mg sublingual Q5M PRN olmesartan 20 mg tablet (Benicar) 20 mg PO QAM rosuvastatin 5 mg tablet 20 mg PO HS sertraline 50 mg tablet 50 mg PO HS glipizide 5 mg tablet 5 mg PO DAILY carvedilol 6.25 mg tablet 6.25 mg PO BID empagliflozin 10 mg tablet (Jardiance) 10 mg PO QAM ezetimibe 10 mg tablet 10 mg PO QAM STOP 3 days before surgery empagliflozin 10 mg tablet (Jardiance) 10 mg PO QAM Continue as directed nitroglycerin 0.4 mg sublingual tablet (Nitrostat) 0.4 mg sublingual Q5M PRN(if needed) ASK your prescriber and surgeon apixaban 5 mg tablet (Eliquis) 5 mg PO BID DO NOT take the morning of surgery bumetanide (Bumex) 2 mg tablet 2 mg PO QAM cyanocobalamin (vitamin B-12) 1,000 mcg tablet (Vitamin B-12) 1,000 mcg PO QAM folic acid 1 mg tablet 1 mg PO QAM cnpxxfdzmntj-xog-lejpb acid-vit K-lycop 400 mcg-20 mcg-370 mcg tablet (One-A-Day Men's 50 Plus (with vitamin K)) 1 tab PO QAM olmesartan 20 mg tablet (Benicar) 20 mg PO QAM glipizide (Glucotrol) 5 mg tablet 5 mg PO DAILY Take morning of surgery With a small sip of water, OTHERWISE NOTHING TO EAT OR DRINK AFTER MIDNIGHT: amlodipine 5 mg tablet (Norvasc) 5 mg PO QAM metoprolol succinate 50 mg tablet,extended release 24 hr 50 mg PO QAM carvedilol (Coreg) 6.25 mg tablet 6.25 mg PO BID zetimibe (Zetia) 10 mg tablet 10 mg PO QAM Take evening before surgery rosuvastatin (Crestor) 5 mg tablet 20 mg PO HS sertraline (Zoloft) 50 mg tablet 50 mg PO HS carvedilol (Coreg) 6.25 mg tablet 6.25 mg PO BID Other Notes If you have any questions please call us at [phone] or [phone] or [phone] or [phone]
--- NOTE | 2024-05-23 10:37 | Anesthesiology Consultation ---
Date of Service May 23, 2024 Assessment & Plan (1) Encounter for pre-operative examination: Plan - denied anginal complaints per 04/18 cardiology clearance, reported intermittent chest discomfort at PAT visit. Patient and surgeon's office made aware will need to send optimization form to cardiology, Dr. Rangel, for confirmation on clearance. PAT testing also to be faxed to PCP, Dr. Mckeon, for continuity of care. - check BSG am DOS. - Wiley pacemaker. - apixaban (Eliquis) to prescriber/surgeon. Patient states he was instructed to stop medication 3 days before surgery which was approved by cardiology. - medical clearance 04/15/24: "...decompression with fusion...cleared for surgery provided he is cleared by cardiology...04/04/24 preop blood work and urine test results reviewed..." - cardiology clearance 04/18/24: "...denies associated chest pain...preoperative cardiovascular risk assessment prior to undergoing an intermediate cardiovascular risk...denies any anginal complaints at this time...do not recommend further invasive or noninvasive cardiovascular testing or procedures prior to proceeding with planned lumbar surgery...optimized from a cardiac standpoint to proceed...does not need the Plavix any longer...as for Bi-V pacemaker > if electrocautery is being utilized, magnet placement on the device for the duration of the procedure would be appropriate to prevent tachy-therapy during procedure. No reprogramming required after surgery..." - surgery previously re-scheduled due to continuation of clopidogrel/Plavix by patient. I spoke with him last week after updated PAT RN call and he confirmed that clopidogrel/Plavix was discontinued by his distribution engineer which was confirmed in recent note. He states has taken medication out of his home supply. I c onfirmed home medication list with him last week and again today in PAT testing. Medication instructions were typed with both generic and brand names. He confirmed familiarity with all medications. I highlighted the headings and specially marked the medications that need stopped early. He states was told to stop apixaban (Eliquis) 3 days before surgery. I will call him 4 days before surgery to remind him on stopping apixaban (Eliquis) and empagliflozin (Jardiance) 3 days before surgery. He was given my business card and instructed to call with any questions or concerns. He was also provided with new pre-op packet and he confirmed understanding to call [facility] 06/14 for 06/17 arrival time. Chart Review Chart Review: Pending: Refer to Additional Notes / Consult section and Patient seen in Pre Admission Testing Teaching & Discussion Pre-Anesthesia Teaching/Discussion Notes: Instructed NPO after midnight before surgery, except medications with 15 cc of water. Medication instructions provided according to the PAT guidelines. History Surgery Operation Date: 06/17/24 10:05 Proposed Procedures p L2-L4 Decompression and Fusion with Spinal Cord Monitoring - Mick Guzman DO Height/Weight Height: 5 ft 11 in Weight: 105.6 kg Allergies Allergy/AdvReac Type Severity Reaction Status Date / Time fish oil AdvReac Intermediate Gastrointestinal Verified 05/15/24 11:53 Upset Medications Home Medications Medication Instructions Recorded Confirmed Last Taken amlodipine 5 mg tablet (Norvasc) 5 mg PO QAM 06/05/20 05/15/24 04/22/24 apixaban 5 mg tablet (Eliquis) 5 mg PO BID 06/05/20 05/15/24 04/22/24 bumetanide 2 mg tablet 2 mg PO QAM 06/05/20 05/15/24 04/22/24 cyanocobalamin (vitamin B-12) 1,000 mcg PO QAM 06/05/20 05/15/24 04/24/24 14:00 1,000 mcg tablet (Vitamin B-12) folic acid 1 mg tablet 1 mg PO QAM 06/05/20 05/15/24 04/22/24 metoprolol succinate 50 mg 50 mg PO QAM 06/05/20 05/15/24 04/22/24 tablet,extended release 24 hr cadtxqqhizlj-akq-jxqwu acid-vit 1 tab PO QAM 06/05/20 05/15/24 04/22/24 K-lycop 400 mcg-20 mcg-370 mcg tablet (One-A-Day Men's 50 Plus (with vitamin K)) nitroglycerin 0.4 mg sublingual 0.4 mg sublingual Q5M PRN Chest 06/05/20 05/15/24 2 Years Ago tablet (Nitrostat) Pain ~04/25/22 olmesartan 20 mg tablet (Benicar) 20 mg PO QAM 06/05/20 05/15/24 04/22/24 rosuvastatin 5 mg tablet 20 mg PO HS 06/05/20 05/15/24 04/22/24 sertraline 50 mg tablet 50 mg PO HS 06/05/20 05/15/24 04/22/24 blood sugar diagnostic (OneTouch #100 ea 06/09/20 Unknown Ultra Blue Test Strip) lancets #100 ea 06/09/20 Unknown carvedilol 6.25 mg tablet 6.25 mg PO BID 03/29/24 05/15/24 04/22/24 empagliflozin 10 mg tablet 10 mg PO QAM 03/29/24 05/15/24 04/22/24 (Jardiance) ezetimibe 10 mg tablet 10 mg PO QAM 03/29/24 05/15/24 04/22/24 glipizide 5 mg tablet 5 mg PO QAM 05/23/24 05/23/24 Unknown Past Medical History Medical History (Updated 05/23/24 @ 13:11 by Daniela Delarosa PA-C) Atrial fibrillation Hx cardiac ablation Follows with Dr. Rangel CAD (coronary artery disease) 5 caths total w/4 stents placed, most recent 2022 Xience stent to LAD Carotid artery disease 2020 CTA neck: pLICA < 50% Diabetes NIDDM Dyslipidemia History of rheumatic fever childhood History of stroke (~2020) 2020- residual hearing loss left ear HTN (hypertension) controlled, stable per pt Hx of myocardial infarction 1978, 2020 Left-sided sensorineural hearing loss residual from TIA Neuropathy Feet REGLA (obstructive sleep apnea) CPAP-compliant Pacemaker Placed ~1978, changed 2020 Wiley-confirmed on 03/2024 pacemaker report Follows with Dr. Rangel Poor historian Sarcoidosis Thoracic aortic aneurysm 4.8 cm on 2020 neck CTA Patient denies h/o seizures, heart failure, blood clots/DVTs or blood transfusions. Exercise / Class Metabolic Activity III < 4 Walking/Shop/Light housework (intermittent chest discomfort ongoing over the past year correlated with back pain, also shortness of breath with usual activities-denies change or worsening) Past Family History Family History Father Heart disease Sister Family history of reaction to anesthesia difficulty waking Past Surgical History Surgical History History of cardiac ablation for atrial fibrillation ~2018 History of open reduction and internal fixation (ORIF) procedure right wrist fracture History of surgery on arm Right forearm "benign tumor" excision Hx of cardiac catheterization 5 caths total w/4 stents placed 1979- stent x1, most recent 2022 Xience stent to LAD Hx of cholecystectomy Hx of colonoscopy Past Anesthesia History No Hx of Anesthesia Complications and No Family Hx of Anesthesia Complications History of PONV No Hx of PONV and No Hx of Motion Sickness Social History Smoking Status: Never smoker Do You Dip or Chew Tobacco: No Hx Alcohol Use: No Hx Substance Use: No substance use type: does not use Review of Systems Patient denies reflux, fever, chills, cough, wheezing, or palpitations. Physical Exam Vital Signs Vitals BP 148/82 P 61 TEMP SP02 96% on RA RESP 18 Physical Patient resting comfortably in chair in no acute distress, alert and oriented, responding appropriately throughout visit Full cervical extension range of motion without pain TMD 3.5 finger breadths Mallampati Score 3 Dentition: intact, denies chipped or loose teeth, caps/crowns, implants or bridges Lungs: normal respiratory effort. Good air movement, clear throughout to auscultation, no adventitious breath sounds Cardiac: regular rate and rhythm, no murmurs noted Carotid arteries: negative bruit bilat Lab Results Anesthesia Preop Results Results Anesthesia Widget: WBC 5.66 K/ul (4.8-10.8) 05/23/24 Hgb 14.0 g/dl (14.0-18.0) 05/23/24 Hct 43.7 % (42.0-52.0) 05/23/24 Plt 103 K/uL (130-400) L 05/23/24 Na 139 mmol/L (136-145) 05/23/24 K 4.7 mmol/L (3.5-5.1) 05/23/24 Cl 109 mmol/L (98-107) H 05/23/24 CO2 27 mmol/L (21-32) 05/23/24 BUN 17 mg/dl (6-23) 05/23/24 Creat 1.00 mg/dl (0.6-1.4) 05/23/24 Glucose Level 173 mg/dl (70-99(Fasting)) H 05/23/24 PT 11.4 Seconds (9.0-12.0) 05/23/24 PTT 30 Seconds (21-31) 05/23/24 INR 1.1 (0.9-1.1) 05/23/24 HA1c 7.5 % (4.5-5.6) H 05/23/24 Urine Color Dark Yellow 05/23/24 Urine Appearance Clear (Clear) 05/23/24 Urine pH 5.5 (4.5-7.5) 05/23/24 Urine Specific [place] 1.042 (1.000-1.030) H 05/23/24 Urine Protein Trace (Negative) H 05/23/24 Urine Glucose (UA) 3+ (Negative) H 05/23/24 Urine Ketones Trace (Negative) H 05/23/24 Urine Blood Negative (Negative) 05/23/24 Urine Nitrite Negative (Negative) 05/23/24 Urine Bilirubin 1+ (Negative) H 05/23/24 Urine Urobilinogen Negative (Negative) 05/23/24 Urine Leukocyte Esterase Negative (Negative) 05/23/24 Urine WBC (Auto) 0-5 /hpf (0-5) 05/23/24 Urine RBC (Auto) 0-2 /hpf (0-2) 05/23/24 Urine Hyaline Casts (Auto) 0-2 /lpf (0-2) 05/23/24 Urine Epithelial Cells (Auto) 0-2 /hpf (0-2) 05/23/24 Urine Bacteria (Auto) None Seen (None Seen) 05/23/24 Blood Type A Positive 05/23/24 Antibody Screen NEGATIVE 05/23/24 Testing Laboratory Results Surgeon's office made aware of A1c elevation. Electrocardiogram Date: 04/18/24 Electronic ventricular pacemaker-possibly demand type Chest X-Ray Date: 04/04/24 No active disease. Echocardiogram Date: 08/23/22 EF 55-60% No obvious RWMA Mild cLVH Mild to moderate bi-atrial dilation No significant valvular pathology Stress Test Date: 06/28/22 Nonspecific symptoms during Lexiscan infusion Afib with biventricular acing Cardiac Catheterization Date: 07/21/22 Positive stress test Left main: no angiographically significant disease LAD: stent in the proximal and mid-segment of the vessel with minor in-stent restenosis. Mid-segment of the vessel just after the stent has a 99% calcific lesion LCx: very distal 99% lesion RCA: distal 50% lesion Culprit critical mid LAD heavily calcified 99% lesion treated successful with a 2.75 x 38 mm Xience stent, postdilated with a 3 mm noncompliant balloon Minor in-stent restenosis in the previously placed stent, treated with a two 3.5 noncompliant balloons Other Testing Pacemaker report 03/28/24 Wiley VVIR All values WNL No new episodes since last transmission BiVP on presenting EGM, BiVP > 99% Head and neck CTA 06/05/20 1. There is no hemorrhage, mass effect, or evidence of acute territorial ischemia by CT criteria noting angiographic phase technique. 2. Unremarkable CT angiogram of the brain. 3. There is aneurysmal dilatation of the visualized ascending thoracic aorta which measures up to 4.8 cm in diameter. 4. Atherosclerotic plaque causes less than 50% luminal narrowing of the proximal left internal carotid artery. 5. Otherwise normal CT angiogram of the neck.
[~2024-06-17 08:47] MED LIST: ATROPINE SULFATE 0.1 MG/ML 10ML SYR IV PRN; HYDROmorphone INJ 2 MG/ML SYR/VIAL IV PRN; ONDANSETRON INJ 2 MG/ML 2 ML VIAL IV PRN; PROMETHAZINE HCL 6.25 MG in SODIUM CHLORIDE 0.9% 50 ML IV PRN; ePHEDrine sulfate 50 MG/ML AMP IV PRN; fentaNYL citrate PF 100 MCG/2 ML VIAL IV PRN
[2024-06-17] MEDS: GABAPENTIN 300 MG CAP PO SCH (09:24)
[2024-06-17] MEDS: LR 15ML/HR IV SCH (09:24)
[2024-06-17] MEDS: ACETAMINOPHEN 500 MG TAB PO SCH (09:24)
[2024-06-17] MEDS: CeleBREX 200 MG CAP PO SCH (09:24)
[2024-06-17] MEDS: LR 60ML/HR IV SCH (09:25)
--- NOTE | 2024-06-17 09:31 | History & Physical Bridge Note ---
Date of Service June 17, 2024 History & Physical Bridge Note I have examined the patient, reviewed the History & Physical and in the interval since the performance of the History & Physical I have noted the following changes of clinical significance: no changes noted
--- NOTE | 2024-06-17 09:32 | History & Physical Report ---
Date of Service June 17, 2024 Assessment & Plan (1) Two-level lumbosacral spondylosis with radiculopathy: Plan: L2-L4 decompression fusion including L5 History of Present Illness Chief Complaint: Back and bilateral leg pain Primary Care Provider: Nelson Mckeon DO This is a 73-year-old male who presents with chronic cyst in back and bilateral leg pain and failing course of nonoperative care is here for surgical invention. Allergies Allergy/AdvReac Type Severity Reaction Status Date / Time fish oil AdvReac Intermediate Gastrointestinal Verified 06/17/24 09:07 Upset Home Medications Medication Instructions Recorded Confirmed Type amlodipine 5 mg tablet (Norvasc) 10 mg PO QAM 06/05/20 06/17/24 History apixaban 5 mg tablet (Eliquis) 5 mg PO BID 06/05/20 06/17/24 History bumetanide 2 mg tablet 2 mg PO QAM 06/05/20 06/17/24 History cyanocobalamin (vitamin B-12) 1,000 mcg PO QAM 06/05/20 06/17/24 History 1,000 mcg tablet (Vitamin B-12) folic acid 1 mg tablet 1 mg PO QAM 06/05/20 06/17/24 History metoprolol succinate 50 mg 50 mg PO QAM 06/05/20 06/17/24 History tablet,extended release 24 hr ndpiabwxmpat-rqd-ofknr acid-vit 1 tab PO QAM 06/05/20 06/17/24 History K-lycop 400 mcg-20 mcg-370 mcg tablet (One-A-Day Men's 50 Plus (with vitamin K)) nitroglycerin 0.4 mg sublingual 0.4 mg sublingual Q5M PRN Chest 06/05/20 06/17/24 History tablet (Nitrostat) Pain olmesartan 20 mg tablet (Benicar) 20 mg PO QAM 06/05/20 06/17/24 History rosuvastatin 5 mg tablet 20 mg PO HS 06/05/20 06/17/24 History sertraline 50 mg tablet 50 mg PO HS 06/05/20 06/17/24 History blood sugar diagnostic (OneTouch #100 ea 06/09/20 Rx Ultra Blue Test Strip) lancets #100 ea 06/09/20 Rx carvedilol 6.25 mg tablet 6.25 mg PO BID 03/29/24 06/17/24 History empagliflozin 10 mg tablet 10 mg PO QAM 03/29/24 06/17/24 History (Jardiance) ezetimibe 10 mg tablet 10 mg PO QAM 03/29/24 06/17/24 History glipizide 5 mg tablet 5 mg PO QAM 05/23/24 06/17/24 History Past Med/Surg History Problem List (Updated 06/17/24 @ 09:32 by Mick Guzman DO) Two-level lumbosacral spondylosis with radiculopathy Diabetic peripheral neuropathy REGLA (obstructive sleep apnea) Left-sided sensorineural hearing loss Vertigo Diabetes CAD (coronary artery disease) Atrial fibrillation Medical History (Updated 06/17/24 @ 09:32 by Mick Guzman DO) History of stroke (~2020) 2020- residual hearing loss left ear History of rheumatic fever childhood Sarcoidosis Carotid artery disease 2020 CTA neck: pLICA < 50% 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 Rangel Hx of myocardial infarction 1978, 2020 Thoracic aortic aneurysm 4.8 cm on 2020 neck CTA REGLA (obstructive sleep apnea) CPAP-compliant Pacemaker Placed ~1978, changed 2020 Wiley-confirmed on 03/2024 pacemaker report Follows with Dr. Rangel Surgical History History of surgery on arm Right forearm "benign tumor" excision Hx of colonoscopy History of open reduction and internal fixation (ORIF) procedure right wrist fracture Hx of cholecystectomy History of cardiac ablation for atrial fibrillation ~2017 Hx of cardiac catheterization 5 caths total w/4 stents placed 1978- stent x1, most recent 2022 Xience stent to LAD Family History Father Heart disease Sister Family history of reaction to anesthesia difficulty waking Social History Smoking Status: Never smoker Second Hand Exposure: No; Do You Dip or Chew Tobacco: No; Tobacco Cessation Education Requested by Patient: No Hx Alcohol Use: No Hx Substance Use: No Preferred Language: Yoruba Communication Ability: Effective Tree Worker Required: No Beliefs That Will Affect Care: None Current Living Situation: Spouse and Family Other Information That Helps Us Care for You: No Feels Safe at Home: Yes Safety Concerns: Feels Safe At This Time Assistive Devices: CPAP and Glasses Physical Exam Physical Exam: Patient is alert and oriented heart regular rhythm Lungs clear Results & Data Results & Data Vital Signs (Past 12 Hours) Vital Signs Temp Pulse Resp BP Pulse Ox O2 Del Method 06/17/24 09:11 37.0 C 60 20 166/95 H 97 Room Air
[2024-06-17] MEDS ORDERED: fentaNYL citrate PF 100 MCG/2 ML VIAL ONE ×2 (09:38→12:30)
[2024-06-17] MEDS ORDERED: PROPOFOL IV EMULSION 10 MG/ML 20 ML VIAL IV ONE (09:39)
[2024-06-17] MEDS ORDERED: ROCURONIUM BROMIDE 10 MG/ML 5 ML VIAL IV ONE ×2 (09:39→11:01)
[2024-06-17] MEDS ORDERED: LIDOCAINE 2% 2 ML VIAL/AMP(20MG/ML) INFIL ONE (09:39)
[2024-06-17] MEDS ORDERED: GLYCOPYRROLATE 0.2 MG/ML VIAL ONE (09:42)
[2024-06-17] MEDS ORDERED: DEXAMETHASONE SOD INJ 4 MG/ML VIAL ONE (09:42)
[2024-06-17] MEDS ORDERED: ONDANSETRON INJ 2 MG/ML 2 ML VIAL ONE (09:42)
[2024-06-17] MEDS: ceFAZolin 2000MG 2,000 MG/15 ML SYR IV SCH ×2 (10:02→19:45)
[2024-06-17] MEDS: BUPIVACAINE/EPINEPHRINE 0.25% 1:200,000 30 ML VIAL ONE (10:47)
[2024-06-17] MEDS: ceFAZolin 330 MG/ML 1 GM VIAL ONE (10:48)
[2024-06-17] MEDS ORDERED: PHENYLEPHRINE HCL 10 MG/ML VIAL ONE (12:14)
[2024-06-17] MEDS ORDERED: SUGAMMADEX SODIUM 200 MG/2 ML VIAL IV ONE (12:38)
[2024-06-17] MEDS: FLOSEAL HEMOSTATIC MATRIX 10ML TOP ONE (12:41)
--- NOTE | 2024-06-17 12:52 | Operative Report ---
Post Operative Report Pre & Post Diagnosis Operation Date: 06/17/24 10:05 Pre-Op Diagnosis: #1 multilevel lumbar spondylosis with radiculopathy #2 lumbar spinal stenosis Post-Op Diagnosis: Same I identified the patient and participated in the time-out.: Yes Procedure Operation Date: 06/17/24 10:05 Actual Procedures #1 lumbar lumbar decompression with bilateral medial facetectomies and foraminotomies L2-L3, L3-L4 L4-5. #2 posterior spinal fusion L2-L5 #3 placed posterior segmental instrumentation L2-L5 using Patricia. #4 interbody fusion L2- L3, L3-L4 and L4-5. #5 placement Spira 9 mm cage at L 2 L3, 11 mm x 2 at L3-L4 and 14 mm cage x 2 at L4-L5. #6 placement locally harvested morselized or graft posterior gutters. #7 placement is collagen sponge, with Koros in the posterior lateral gutters and os design interbody space. #8 application of versa wrap of the exposed dura. Surgeon Mick Guzman, DO Life Skills Educator Tanisha Vuong Estimated Blood Loss 650 Findings See Below Patient is 5 foot 11 weighing over 170 kg with a BMI in excess of 33. The patient's body of this did contribute to significant technical difficulty with positioning exposure and the procedure itself and at least 50% increased operative time. This combined with an EBL of over 600 cc added to the difficulty. I am recommending a modifier 22. Specimens None Indications This is a 73-year-old male presents bumps diagnosis of failed course of nonoperative care is here for surgical invention. Description of Procedure Patient was met with identified informed consent obtained. Patient was then taken to the operative suite underwent patient placed in a prone position on the Clarence table top of the Tushar frame. All bony prominences well-padded eyes inspected to ensure no external pressure placed upon them. This point the lumbar spine was prepped and draped in normal sterile fashion. Sharp dissection with the assistance of Bovie cautery was performed down to and exposing the lamina and transverse processes of L2-L3-L4 L5 bilaterally. From a caudal cephalad fashion complete laminectomy of L4 was performed including bilateral medial facetectomies and foraminotomies addressing severe neural compression followed by complete laminectomy of L3 with bilateral medial facetectomies and foraminotomies and lastly complete laminectomy of L2 with bilateral medial facetectomies and foraminotomies addressing severe neural compression at all levels. Pedicle screws then placed in L2-L3 L4-5 bilaterally with assistance of fluoroscopy and properly sized mariya placed. By way of transforaminal approach on the left discectomy L4-5 was performed endplates guarded distal cortical bleeding bone and a 14 x 26 mm spiral cage filled with os design bone graft tapped in position. Then proceeded to the right transforaminal energy at L4-5. Again discectomy performed. Endplates guided to subcortical bony bone and a second 14 x 26 mm spiral cage filled with os design tapped in position. Then proceeded L3-L4 discectomy performed through transforaminal approach on the right. Endplates guided to subcortical and bone and 11 x 26 mm spiral cage filled os design tapped in position. Then proceeded to the left transforaminal region at L3-L4. Again discectomy performed. Endplates guided to subcortical bleed bone and a second 11 x 26 mm spiral cage filled with Oxyzyme tapped in position. Lastly approached L2-L3 through a transforaminal approach on the left a complete discectomy was performed. Endplates guided to subcortical bone. A 9 x 26 mm spiral cage filled with os design bone graft tapped in position. The rods were then compressed locked in final position bilaterally. The transverse processes of L2-L3-L4 L5 burred to subcortical bleeding bone. Infuse collagen sponge, with Koros and local autograft placed in the posterior gutters. First wrap placed over the exposed dura. 15 round NAMAN drain inserted. The incision was then closed with 1 Vicryl fascia 2-0 Vicryl subcutaneously and 4 Monocryl for final skin closure. Steri-Strips sterile dressing placed. Patient waken taken to PACU in stable condition. Please note spinal cord monitoring was utilized at the procedure no changes noted. Im ordering 10 grams of Collagen Powder (HCPCS A6010 Primary Dressing) and 10 bordered super absorbent (HCPCS A6196 Secondary Dressing) to treat an incision wound that was caused by a spine procedure. The incision is approximately 2 cm(W) x 2 cm(L) down to the spinal column and epidural space 2 cm (D) in size and is a full thickness wound showing no signs of infection. Collagen comes in 1 gram packets so 10 packets were ordered. Given the size of the wound, with moderate exudate I chose to order a 10 day supply. The patient will be provided instructions for proper application of the collagen wound kit. The patient will be asked to apply the collagen powder daily and then cover it with sterile dressings dispensed. Collagen was selected as I expect the collagen to attract monocytes and fibroblasts, act as a sacrificial substrate for MMPs, and ultimately proved a matrix for tissue and vessel growth. The collagen will act as a primary dressing in this scenario. It is medically necessary for proper healing of these wounds to improve bioavailability and contact with each wound surface, this is also to help prevent infection of wounds and promote healing ultimately leading to a better healing outcome and limit the risk of infection. I attest to the content of the Intraoperative Record and any orders documented therein. Any exceptions are noted below.
--- NOTE | 2024-06-17 14:13 | Fluoroscopy Report ---
FL lumbar spine 2-3V CLINICAL HISTORY: L2-L4 DECOMPRESSION AND FUSION COMPARISON STUDY: None FLUOROSCOPY TIME: 18 seconds FLUOROSCOPY IMAGES: 3 EXPOSURE DOSE: 16.5 mGy FINDINGS: Fluoroscopy was provided for lumbar metallic fusion. IMPRESSION: Intraoperative fluoroscopy. ACT 112: Negative or not required by law. Electronically signed by: Tray Reeves M.D. 06/17/2024 2:11 PM
[2024-06-17] MEDS ORDERED: PHARMACY GLYCEMIC MGMT CONSULT PRN (14:25)
[2024-06-17] MEDS ORDERED: DO NOT ADMINISTER FLU VACCINE PRN (14:25)
[2024-06-17] MEDS ORDERED: PROMETHAZINE 12.5 MG/50.5 ML BAG IV PRN (14:25)
[2024-06-17] MEDS ORDERED: FAMOTIDINE 20 MG TAB PO PRN (14:25)
[2024-06-17] MEDS ORDERED: LORazepam 0.5 MG TAB PO PRN (14:25)
[2024-06-17] MEDS ORDERED: HYDROmorphone INJ 1 MG/ML SYRINGE IV PRN (14:25)
[2024-06-17] MEDS ORDERED: diphenhydrAMINE Capsule 25 MG CAP PO PRN (14:25)
[2024-06-17] MEDS ORDERED: METOCLOPRAMIDE HCL INJ 5 MG/ML 2 ML VIAL IV PRN (14:25)
[2024-06-17] MEDS ORDERED: NALOXONE HCL 0.4 MG/1 ML VIAL/CARP IV PRN (14:25)
[2024-06-17] MEDS ORDERED: ALUMINUM/MAGNESIUM SUSP 30 ML UDC PO PRN (14:25)
[2024-06-17] MEDS ORDERED: ONDANSETRON 4 MG OD TAB PO PRN (14:25)
[2024-06-17] MEDS ORDERED: DO NOT ADMINISTER PNEUMOCOCCAL VACCINE PRN (14:25)
[2024-06-17] MEDS ORDERED: LORazepam 2 MG/1 ML VIAL IV PRN (14:25)
[2024-06-17] MEDS ORDERED: NITROGLYCERIN SL 0.4 MG/TAB TAB SL PRN (14:25)
[2024-06-17] MEDS ORDERED: hydrOXYzine HCl 25 MG TAB PO PRN (14:25)
[2024-06-17] MEDS ORDERED: ACETAMINOPHEN 1,000 MG/100 ML VIAL IV PRN (14:25)
[2024-06-17] MEDS ORDERED: HYDROmorphone INJ 0.5 MG/0.5 ML SYR IV PRN (14:25)
[2024-06-17] MEDS ORDERED: SOD PHOSPHATE/SOD BIPHOSPHATE ENEMA 132 ML BTL PR PRN (14:25)
[2024-06-17] MEDS ORDERED: ONDANSETRON INJ 2 MG/ML 2 ML VIAL IV PRN (14:25)
[2024-06-17] MEDS ORDERED: GLUCOSE 10 TAB/TUBE PO PRN (14:41)
[2024-06-17] MEDS ORDERED: GLUCAGON FOR INJ 1 MG VIAL SQ PRN (14:41)
[2024-06-17] MEDS ORDERED: GLUCOSE 40% GEL 15 GM TUBE PO PRN (14:41)
[2024-06-17] MEDS ORDERED: CARBOHYDRATES FOR HYPOGLYCEMIA PO PRN (14:41)
[2024-06-17] MEDS ORDERED: DEXTROSE 50% 50 ML SYRINGE IV PRN (14:41)
--- NOTE | 2024-06-17 14:49 | Consultation ---
Date of Consultation June 17, 2024 Assessment & Plan (1) Two-level lumbosacral spondylosis with radiculopathy: 73 year old male with PMH CAD, HTN, Dyslipidemia, Afib with pacemaker, Thoracic aortic aneurysm, H/o rheumatic fever and stroke, REGLA, DM Type II, Sarcoidosis who was consulted for medical management following lumbar decompression and spinal fusion with instrumentation placement today. He received a lumbar decompression with bilateral medial facetectomies and foraminotomies L2-L3, L3- L4 L4-5; posterior spinal fusion L2-L5; posterior segmental instrumentation L2- L5. Lumbosacral spondylosis with Radiculopathy: * POD#0 s/p lumbar decompression, spinal fusion and instrumentation with Dr. Guzman. * EBL: 650 ml with additional ~270 ml post-operatively; Pre-op Hgb 14 on 05/24/2024. Asymptomatic immediate post-op; Will check H&H now and with [facility] * Monitor drain output * Per ortho for pain control- Acetaminophen/Oxy/Dilaudid PRN * Wound care * Anticoagulation on hold- Eliquis at home * Continue incentive spirometry * PT/OT when appropriate (2) CAD (coronary artery disease): (3) Atrial fibrillation: Hypertension/Atrial Fibrillation/CAD * Hemodynamically stable with EBL now up to ~900 ml. * Eliquis on hold; will reassess restarting * INR ordered with [facility] * Hold bumex/olmasartan for now. May resume tomorrow if SBP remains >120 * Continue Carvedilol/Amlodipine with parameters. * Check BMP/Mag with [facility] * Continue home metoprolol * Continue home statin/ezetimibe (4) Diabetes: Diabetes: * Most recent A1C 7.5% * Accucheck ACHS-ordered * Home Jardiance on hold * Insulin sliding scale ordered (5) REGLA (obstructive sleep apnea): Obstructive Sleep Apnea: * Patient uses CPAP 10 at home nightly * will continue home regimen- Respiratory at bedside and aware * No supplemental oxygen at home Plan DVT Ppx: SCD/Teds Code status: Full PCP: Uriah Brewster Dispo: Admit Patient seen in collaboration with Dr. Dumont. Please see addendum.I spent a total of 60 minutes coordinating, documenting and providing care for this patient excluding time spent in the performance of separately billed services or time spent by another provider/QHP. Supervising Physician Co-Signing Physician Notes Patient is a 73-year-old male with history of coronary artery disease, CVA, atrial fibrillation on chronic anticoagulation with Eliquis and other medical problems was consulted for postop medical management. Patient underwent lumbar decompression, fusion surgery by Dr. Guzman. Patient complains of back pain at surgical site but otherwise doing well postoperatively. He denies any chest pain, dyspnea, nausea, vomiting, abdominal pain, dizziness. No numbness or tingling in lower extremities. Please review HPI for complete details. Physical Exam: Vitals signs as noted above General Appearance:Moderately built and nourished, no apparent distress Head: normocephalic, Atraumatic Eyes: normal inspection, EOMI Neck: supple, Trachea midline Respiratory/Chest: Normal breath sounds, CTA, No accessory muscle use Cardiovascular: S1-S2, no murmur Abdomen/GI:Soft, Non tender, Bowel sounds present Back: Surgical site in dressing, drain Extremities/Musculoskeletal:normal inspection, no edema Neurologic/Psych:AAOX3, grossly no focal neurological deficits, + decreased hearing Skin: normal color, warm Lumbar spinal stenosis, spondylosis with radiculopathy S/P lumbar decompression, fusion surgery by Dr. Guzman on 06/17/2024 Diabetes mellitus Atrial fibrillation on anticoagulation with Eliquis Coronary artery disease CVA REGLA Monitor for postop anemia Pain control, wound care, DVT prophylaxis as per primary team. PT OT when when appropriate Resume anticoagulation as soon as possible once cleared by ortho spine given comorbidities Hold p.o. diabetic medications and utilize insulin while hospitalized Monitor blood pressure closely and resume home medications as able Continue CPAP at bedtime I personally interviewed and examined the patient at bedside. I have reviewed the advanced practitioner's documentation on the date of service referred in note and agree with plan. Patient's care is coordinated with Lavonne FISCHER. Please refer to the documentation above for details of patient's presentation and for discussion of other issues. I spent a total [id number] coordinating, documenting, and providing care for this patient excluding time spent in the performance of separately billed services or time spent by another provider/QHP. History of Present Illness Requesting Physician: Mick Guzman DO Reason for Consultation: Post-op med management Attending Physician: Mick Guzman, DO History of Present Illness 73 year old male with PMH CAD, HTN, Dyslipidemia, Afib with pacemaker, Thoracic aortic aneurysm, H/o rheumatic fever and stroke, REGLA, DM Type II, Sarcoidosis w ho was consulted for medical management following lumbar decompression and spinal fusion with instrumentation placement today. He received a lumbar decompression with bilateral medial facetectomies and foraminotomies L2-L3, L3- L4 L4-5; posterior spinal fusion L2-L5; posterior segmental instrumentation L2- L5. Today, he is reporting lower back pain without radiation to the BLE. He denies numbness, tingling, weakness to lowr extremities. He denies numbness to the pelvic area, chest pain, swelling, difficulty breathing, abdominal pain, N/V. His primary concern is pain management following surgery. He was seen and evaluated at the bedside with family present to assist with past medical history, current medications, and plan in the post-operative phase. Allergies Allergy/AdvReac Type Severity Reaction Status Date / Time fish oil AdvReac Intermediate Gastrointestinal Verified 06/17/24 09:07 Upset Home Medications Medication Instructions Recorded Confirmed Type amlodipine 5 mg tablet (Norvasc) 10 mg PO QAM 06/05/20 06/17/24 History apixaban 5 mg tablet (Eliquis) 5 mg PO BID 06/05/20 06/17/24 History bumetanide 2 mg tablet 2 mg PO QAM 06/05/20 06/17/24 History cyanocobalamin (vitamin B-12) 1,000 mcg PO QAM 06/05/20 06/17/24 History 1,000 mcg tablet (Vitamin B-12) folic acid 1 mg tablet 1 mg PO QAM 06/05/20 06/17/24 History metoprolol succinate 50 mg 50 mg PO QAM 06/05/20 06/17/24 History tablet,extended release 24 hr dcjepkdihboy-xwf-witxd acid-vit 1 tab PO QAM 06/05/20 06/17/24 History K-lycop 400 mcg-20 mcg-370 mcg tablet (One-A-Day Men's 50 Plus (with vitamin K)) nitroglycerin 0.4 mg sublingual 0.4 mg sublingual Q5M PRN Chest 06/05/20 06/17/24 History tablet (Nitrostat) Pain olmesartan 20 mg tablet (Benicar) 20 mg PO QAM 06/05/20 06/17/24 History rosuvastatin 5 mg tablet 20 mg PO HS 06/05/20 06/17/24 History sertraline 50 mg tablet 50 mg PO HS 06/05/20 06/17/24 History blood sugar diagnostic (OneTouch #100 ea 06/09/20 Rx Ultra Blue Test Strip) lancets #100 ea 06/09/20 Rx carvedilol 6.25 mg tablet 6.25 mg PO BID 03/29/24 06/17/24 History empagliflozin 10 mg tablet 10 mg PO QAM 03/29/24 06/17/24 History (Jardiance) ezetimibe 10 mg tablet 10 mg PO QAM 03/29/24 06/17/24 History glipizide 5 mg tablet 5 mg PO QAM 05/23/24 06/17/24 History Patient History Medical History History of stroke (~2020) 2020- residual hearing loss left ear History of rheumatic fever childhood Sarcoidosis Carotid artery disease 2020 CTA neck: pLICA < 50% 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 Rangel Hx of myocardial infarction 2020 Thoracic aortic aneurysm 4.8 cm on 2020 neck CTA REGLA (obstructive sleep apnea) CPAP-compliant Pacemaker Placed ~1978, changed 2020 Wiley-confirmed on 03/2024 pacemaker report Follows with Dr. Rangel Surgical History History of surgery on arm Right forearm "benign tumor" excision Hx of colonoscopy History of open reduction and internal fixation (ORIF) procedure right wrist fracture Hx of cholecystectomy History of cardiac ablation for atrial fibrillation ~2017 Hx of cardiac catheterization 5 caths total w/4 stents placed 1978- stent x1, most recent 2022 Xience stent to LAD Family History Father Heart disease Sister Family history of reaction to anesthesia difficulty waking Social History Smoking Status: Never smoker Second Hand Exposure: No; Tobacco Cessation Education Requested by Patient: No Hx Alcohol Use: No Hx Substance Use: No Preferred Language: Bulgarian Communication Ability: Effective 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 WEIGHT/BMI reviewed. GEN: Healthy appearing, well-developed, NAD. PSYCH: Good Judgment. AOx3. Normal memory, mood, and affect. HEENT -Head: NC/AT; -Eyes: PERRL, EOMI. No discharge or redn ess; -Ears: External ears are normal. Normal TMs. -Nose: Normal nares. -Mouth and throat: MMM. Normal gums, muc regla, palate,. Good dentition. NECK: Supple, with no masses. CV: RRR, no m/r/g. LUNGS: CTAB, no w/r/c. ABD: Soft, NT/ND, NBS, no masses or organomegaly. : N/A SKIN: Warm, well perfused. Erythema to left hand post-op without swelling/tenderness/open lesions. Multiple raised keratotic lesions and moles throughout body. MSK: No deformities, moving all extremities against resistance without difficulty. EXT: No clubbing, cyanosis, or edema. NEURO: Normal muscle strength and tone. No focal deficits. Sensation intact BLE Results & Data Vital Signs (Past 12 Hours) Vital Signs Temp Pulse Resp BP Pulse Ox O2 Del Method O2 Flow Rate 06/17/24 13:50 60 14 111/68 92 Room Air 06/17/24 13:40 36.4 C L 60 12 109/69 93 Room Air 06/17/24 13:30 60 9 L 121/71 97 Oxymask 8 06/17/24 13:20 60 9 L 119/72 97 Oxymask 8 06/17/24 13:13 36.1 C L 60 10 L 112/71 97 Oxymask 8 06/17/24 09:11 37.0 C 60 20 166/95 H 97 Room Air
--- NOTE | 2024-06-17 14:54 | Pharmacy Report ---
Pharmacy Glycemic Short Note 2 - Date of Service June 17, 2024 - Glycemic Short BSG Results (Last 24 hours): 06/17/24 06/17/24 09:06 13:20 POC Glucose 229 H 241 H OUTPATIENT ANTIDIABETIC REGIMEN: * Jardiance 10mg po daily * glipizide 5mg po daily HbA1c: 7.5% on 05/23/24 ASSESSMENT: * Wesley is a 73 year old male admitted today for an L2-L5 decompression and fusion (POD#). Pharmacy has been consulted for glycemic management postop. * Preop BSG was 229mg/dL and postop was 241mg/dL. Patient received 8mg iv dexamethasone x 1 preop and is ordered dexamethasone 6mg iv daily x 3 days. Lantus 15 units SQ x 1 was ordered a weight based bolus insulin with a stress between 1 and 2 was started. PLAN FOR INPATIENT GLYCEMIC CONTROL: * Hold outpatient oral diabetes medications * Basal insulin * Lantus 15 units SQ x 1. Further need will be reassessed with additional BSG readings. * Bolus insulin * NovoLog per scale ACHS or Q6hrs while NPO * Goal Range: Low 110 mg/dL - High 140 mg/dL * Correction Factor: 30 mg/dL/unit * Nutritional / Prandial insulin per carb ratio of 1 unit per 15 grams CHO consumed
[2024-06-17] MEDS ORDERED: LANTUS PER UNIT CHARGE SC ONE (15:00)
--- NOTE | 2024-06-17 15:14 | Anesthesiology Progress Note ---
Date of Service June 17, 2024 Anesthesia Post Procedure Vital Signs Vital Signs: Temp Pulse Resp BP BP Pulse Ox O2 Del Method 06/17/24 14:25 97.7 F 62 18 118/70 95 Room Air 06/17/24 14:25 97.7 F 60 18 125/73 95 Room Air 06/17/24 13:50 60 14 111/68 92 Room Air 06/17/24 13:40 97.5 F L 60 12 109/69 93 Room Air 06/17/24 13:30 60 9 L 121/71 97 Oxymask 06/17/24 13:20 60 9 L 119/72 97 Oxymask 06/17/24 13:13 97.0 F L 60 10 L 112/71 97 Oxymask 06/17/24 09:11 98.6 F 60 20 166/95 H 97 Room Air O2 Flow Rate 06/17/24 14:25 06/17/24 14:25 06/17/24 13:50 06/17/24 13:40 06/17/24 13:30 8 06/17/24 13:20 8 06/17/24 13:13 8 06/17/24 09:11 Pain Intensity Back: Pain Intensity: 4 Transfer of Care Handoff Completed per policy Notes Mental Status: alert / awake / arousable and participated in evaluation Patient Amnestic to Procedure: Yes Nausea / Vomiting: adequately controlled Pain: adequately controlled Airway Patency, RR, SpO2: stable & adequate BP & HR: stable & adequate Hydration State: stable & adequate Anesthetic Complications: no major complications apparent and Pt Satisfied with anesthetic care
[2024-06-17] MEDS: oxyCODONE HCL IR 5 MG TAB (IMMEDIATE RELEASE) PO PRN (15:42)
[2024-06-17 16:19] LABS: Hematocrit (blood only) 38.4 % (42.0-52.0); Hemoglobin 11.9 g/dl (14.0-18.0)
[2024-06-17] MEDS ORDERED: Nursing to Pharmacy Communication SCH (17:30)
[2024-06-17] MEDS: INSULIN ASPART PER UNIT CHARGE SC SCH (17:50)
[2024-06-17] MEDS: LANTUS PER UNIT CHARGE SC ONE (17:50)
[2024-06-17] MEDS: carvediloL 6.25 MG TAB PO SCH (17:52)
[2024-06-17] MEDS: DOCUSATE SODIUM/SENNA 50/8.6MG TAB PO SCH (20:44)
[2024-06-17] MEDS: SERTRALINE HCL 50 MG TABLET PO SCH (20:45)
[2024-06-17] MEDS: ROSUVASTATIN CALCIUM 20 MG TAB PO SCH (20:46)
[2024-06-17] MEDS ORDERED: carvediloL 6.25 MG TAB PO SCH (21:00)
[2024-06-17] MEDS: ACETAMINOPHEN 500 MG TAB PO PRN (23:53)
[2024-06-18] MEDS: POLYETHYLENE (MIRALAX) 17 GM PACK PO SCH (06:13)
[2024-06-18 06:27] LABS: BUN Creatinine Ratio 22.9 (10-20); Calcium 8.1 mg/dl (8.6-10.3); Magnesium 1.7 mg/dl (1.7-2.4); Potassium 4.8 mmol/L (3.5-5.1)
--- NOTE | 2024-06-18 07:19 | Hospitalist Progress Note ---
Date of Service June 18, 2024 Assessment & Plan (1) Two-level lumbosacral spondylosis with radiculopathy: Plan: Mr. Orozco is a 73y/o M with PMHx significant for CAD s/p PCI with STAN to LAD and balloon angioplasty of proximal jailed third diagonal in May 2020, NSTEMI in May 2020, CHF, SSS s/p pacemaker placement, AFib on Eliquis, pulmonary sarcoidosis, REGLA on CPAP HS, thoracic aortic aneurysm (stable since 2007), HTN, HLD, GERD, DMII and history of TIA in May 2020 who is being seen in consultation for routine postoperative medical management after undergoing elective L2-L5 decompression and fusion performed by Dr. Guzman on 06/17/24. Per ortho for pain control, wound care, anticoagulation and activities. Continue incentive spirometry, PT/OT when appropriate as per ortho team. Leukocytosis likely 2/2 Decadron use - monitor. (2) Acute blood loss anemia: Plan: In the setting of expected surgical loss with EBL of 650mL. Preop Hgb 14. Hgb downtrended to 11.1 today. No indication to transfuse at this time. Continue to monitor daily CBC. (3) DM type 2 (diabetes mellitus, type 2): Plan: Hold home agents. SSI protocol while inpatient. Hgb A1c 7.5% on 05/23/24. Continue BSG checks ACHS. (4) HTN (hypertension): Plan: Holding olmesartan for now 2/2 relative hypotension. Will resume as able. (5) CAD (coronary artery disease): Plan: Continue Zetia and statin. Prior PCI with STAN to LAD and balloon angioplasty of proximal jailed third diagonal in May 2020. (6) Atrial fibrillation: Plan: Resume Eliquis MARTHA. Continue carvedilol with hold parameters. (7) REGLA (obstructive sleep apnea): Plan: Continue CPAP HS. Other Chronic Medical Conditions: ROSEMARY/Depression - Continue Zoloft. DVT Prophylaxis: SCDs/TEDs as per primary service. 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 Code Status: FULL CODE PCP: Nelson Mckeon DO [[facility]] Disposition: Discharge planning as per primary service. We will follow the patient with you during their hospital stay. You can reach a [facility] of [facility] via [employer]. Patient seen in collaboration with Dr. Boggs. Please see addendum. I spent a total of 40 minutes coordinating, documenting, and providing care for this patient excluding time spent in the performance of separately billed services or time spent by another provider/QHP. This included personally reviewing all current laboratories and imaging studies, medical reconciliation, outpatient chart review and discussion with specialists. This chart was completed in part utilizing Speech Voice Recognition Software. Grammatical errors, random word insertions, pronoun errors, and incomplete sentences are an occasional consequence of this system due to software limitations, ambient noise, and hardware issues. Any formal questions or concerns about the content, text, or information contained within the body of this dictation should be directly addressed to the provider for clarification. Admission and Anticipated Discharge Date Admission Date: June 17, 2024 Supervising Physician Co-Signing Physician Notes Case reviewed with the advanced practitioner. I have reviewed the advanced practitioner's documentation on the date of service referenced in note, and I agree with, and take responsibility for the plan of care. please refer to her notes for full details patient seen and examined, records reviewed by myself as well diagnoses and plan of care as per advanced practitioner's notes I spent a total of 20 minutes coordinating, documenting, and providing care for this patient, excluding time spent in the performance of separately billed services or time spent by another provider/QHP. Vasile Boggs MD Subjective Patient seen and examined in W456-2. NAEO. Endorses good pain control this morning. Has already been up and ambulating the hallways with PT/OT. Has NAMAN drain x [address] which is draining serosanguineous output without any issue. Had his Wise catheter removed shortly before I arrived to see him. Has not yet urinated s/p Wise catheter removal but has a urinal at bedside available for him when he has to. No BM postoperatively yet. Denies any chest pain, SOB, abdominal pain or N/V. Neuropathy in BLE significantly improved. Went over his m edication list. Review of Systems Review of Systems: At least ten systems reviewed and negative, except as noted in the subjective section. Physical Exam Physical Exam: General: Obese, M. NAD. Laying down in bed. Very pleasant. [place] in L ear. A&Ox4. HEENT: Normocephalic, atraumatic. Conjunctivae normal, anicteric sclerae. External ear/nose normal, oropharynx normal. Respiratory: Normal respiratory effort, lungs clear to auscultation bilaterally. No accessory muscle use. Cardiovascular: Regular rate and rhythm. Normal peripheral pulses. No BLE edema. Has BLE SCDs and TEDs in place. Abdomen/GI: Normal bowel sounds, soft, nondistended, nontender to palpation in all quadrants. Extremities/MSK: BLE tactile sensation intact. NAMAN drain x 1 intact and draining serosanguineous output. Surgical dressing C/D/I. Neurologic: No overt focal deficits, CN's II-XI not formally tested but appear grossly intact bilaterally. Actively moves all extremities. Results & Data Results & Data Vital Signs (Past 12 Hours) Vital Signs Temp Pulse Pulse Pulse Resp BP Pulse Ox 06/18/24 07:08 36.9 C 64 20 128/68 94 06/18/24 04:44 36.2 C L 65 17 132/75 97 06/18/24 02:50 10 L 06/17/24 23:50 37.2 C 62 18 142/79 H 95 06/17/24 20:36 60 17 95 06/17/24 20:21 37.0 C 60 16 140/80 96 06/17/24 20:00 O2 Del Method FiO2 06/18/24 07:08 Room Air 06/18/24 04:44 Room Air 06/18/24 02:50 21 06/17/24 23:50 Room Air 06/17/24 20:36 21 06/17/24 20:21 Room Air 06/17/24 20:00 CPAP Laboratory Results Short CBC 06/17/24 06/18/24 Range/Units 15:46 05:51 WBC 11.59 H (4.8-10.8) K/ul Hgb 11.9 L 11.1 L (14.0-18.0) g/dl Hct 38.4 L 35.3 L (42.0-52.0) % Plt Count 100 L (130-400) K/uL BMP 06/18/24 05:51 Sodium 136 Potassium 4.8 Chloride 108 H Carbon Dioxide 25 BUN 24 H Creatinine 1.05 Glucose 179 H Calcium 8.1 L (3) DM type 2 (diabetes mellitus, type 2) Diabetes mellitus complication status: without complication Diabetes mellitus jail insulin use: without filler leaf cutter long use Qualified Code(s): E11.9 - Type 2 diabetes mellitus without complications (4) HTN (hypertension) Hypertension type: unspecified Qualified Code(s): I10 - Essential (primary) hypertension (5) CAD (coronary artery disease) Associated angina: unspecified whether angina present Coronary Disease- Associated Artery/Lesion type: unspecified vessel or lesion type [place] vs. transplanted heart: [place] heart Qualified Code(s): I25.10 - Atherosclerotic heart disease of [place] coronary artery without angina pectoris (6) Atrial fibrillation Atrial fibrillation type: unspecified Qualified Code(s): I48.91 - Unspecified atrial fibrillation
[2024-06-18 07:53] LABS: Basophils # (auto) 0.01 K/uL (0.00-0.20); Basophils % (auto) 0.1 %; Hematocrit (blood only) 35.3 % (42.0-52.0); Hemoglobin 11.1 g/dl (14.0-18.0); Immature Granulocytes # (auto) 0.07 K/uL (0.01-0.20); Immature Granulocytes % (auto) 0.6 %; Lymphocytes # (auto) 0.97 K/uL (1.20-3.40); Lymphocytes % (auto) 8.4 %; Mean Corpuscular Hemoglobin 25.6 pg (25.0-34.0); Mean Corpuscular Hgb Conc 31.4 g/dL (32.0-36.0); Mean Corpuscular Volume 81.3 fL (80.0-100.0); Mean Platelet Volume 9.9 fL (9.4-12.4); Monocytes # (auto) 1.02 K/uL (0.11-0.59); Monocytes % (auto) 8.8 %; Neutrophils # (auto) 9.52 K/uL (1.40-6.50); Neutrophils % (auto) 82.1 %; Platelet Count 100 K/uL (130-400); RDW Coefficient of Variation 15.5 % (11.5-14.5); RDW Standard Deviation 45.2 fL (36.4-46.3); Red Blood Count 4.34 M/uL (4.70-6.10); White Blood Count 11.59 K/ul (4.8-10.8)
[2024-06-18] MEDS: CYANOCOBALAMIN (B-12) 500 MCG TABLET PO SCH (08:38)
[2024-06-18] MEDS: EZETIMIBE 10 MG TAB PO SCH (08:38)
[2024-06-18] MEDS: amLODIPine BESYLATE 5 MG TAB PO SCH (08:39)
[2024-06-18] MEDS: FOLIC ACID 1 MG TAB PO SCH (08:39)
[2024-06-18] MEDS: dexAMETHasone 6 MG in SYRINGE 0 ML IV SCH (08:39)
[2024-06-18] MEDS: METOPROLOL SUCC 50MG EXT REL TAB PO SCH (08:40)
[2024-06-18] MEDS: LANTUS PER UNIT CHARGE SC ONE (08:40)
[2024-06-18] MEDS ORDERED: glipiZIDE 5 MG TAB PO SCH (09:00)
[2024-06-18] MEDS ORDERED: BUMETANIDE 1 MG TAB PO SCH (09:00)
[2024-06-18] MEDS ORDERED: LOSARTAN POTASSIUM 50 MG TAB PO SCH (09:00)
[2024-06-18] MEDS ORDERED: EMPAGLIFLOZIN 10 MG TAB PO SCH (09:00)
--- NOTE | 2024-06-18 12:03 | Orthopedic Progress Note ---
Date of Service June 18, 2024 Assessment & Plan (1) Two-level lumbosacral spondylosis with radiculopathy: Plan: This time we will continue physical therapy monitor his NAMAN operatively discharge home in the next few days. Admission and Anticipated Discharge Date Admission Date: June 17, 2024 Subjective Back pain is controlled leg symptoms markedly improved. Physical Exam Physical Exam: Patient is currently in bed. Is comfortable. Distracted testing. Results & Data Vital Signs (Past 12 Hours) Vital Signs Temp Pulse Pulse Resp BP Pulse Ox O2 Del Method 06/18/24 11:15 36.9 C 60 17 130/74 95 Room Air 06/18/24 08:00 Room Air 06/18/24 07:08 36.9 C 64 20 128/68 94 Room Air 06/18/24 04:44 36.2 C L 65 17 132/75 97 Room Air 06/18/24 02:50 10 L FiO2 06/18/24 11:15 06/18/24 08:00 06/18/24 07:08 06/18/24 04:44 06/18/24 02:50 21 Queries Orthopedic Spine Obesity: Yes
[2024-06-18] MEDS: SERTRALINE HCL 100 MG TABLET PO SCH (20:18)
[2024-06-18] MEDS: traMADol HCL 50 MG TABLET PO PRN (20:18)
[2024-06-18] MEDS: carvediloL 12.5 MG TAB PO SCH (20:19)
[2024-06-19 05:46] LABS: BUN Creatinine Ratio 26.3 (10-20); Calcium 8.5 mg/dl (8.6-10.3); Creatinine Clr Calc Pharmacy 81.6 ml/min; Magnesium 1.9 mg/dl (1.7-2.4); Potassium 4.5 mmol/L (3.5-5.1)
[2024-06-19 05:49] LABS: Hematocrit (blood only) 32.5 % (42.0-52.0); Hemoglobin 10.4 g/dl (14.0-18.0); Mean Corpuscular Hemoglobin 25.9 pg (25.0-34.0); Mean Corpuscular Volume 80.8 fL (80.0-100.0); Mean Platelet Volume 10.4 fL (9.4-12.4); Platelet Count 92 K/uL (130-400); RDW Coefficient of Variation 15.7 % (11.5-14.5); RDW Standard Deviation 45.4 fL (36.4-46.3); Red Blood Count 4.02 M/uL (4.70-6.10); White Blood Count 10.81 K/ul (4.8-10.8)
[2024-06-19 05:51] LABS: Platelet Estimate Decreased (Normal)
--- NOTE | 2024-06-19 07:17 | Hospitalist Progress Note ---
Date of Service June 19, 2024 Assessment & Plan (1) Two-level lumbosacral spondylosis with radiculopathy: Plan: Mr. Orozco is a 73y/o M with PMHx significant for CAD s/p PCI with STAN to LAD and balloon angioplasty of proximal jailed third diagonal in May 2020, NSTEMI in May 2020, CHF, SSS s/p pacemaker placement, AFib on Eliquis, pulmonary sarcoidosis, REGLA on CPAP HS, thoracic aortic aneurysm (stable since 2007), HTN, HLD, GERD, DMII and history of TIA in May 2020 who is being seen in consultation for routine postoperative medical management after undergoing elective L2-L5 decompression and fusion performed by Dr. Guzman on 06/17/24. Per ortho for pain control, wound care, anticoagulation and activities. Continue incentive spirometry, PT/OT when appropriate as per ortho team. Leukocytosis likely 2/2 Decadron use - monitor. (2) Acute blood loss anemia: Plan: In the setting of expected surgical loss with EBL of 650mL. Preop Hgb 14. Hgb downtrended to 10.4 today. No indication to transfuse at this time. Continue to monitor daily CBC. (3) DM type 2 (diabetes mellitus, type 2): Plan: Hold home agents. SSI protocol while inpatient. Hgb A1c 7.5% on 05/23/24. Continue BSG checks ACHS. (4) HTN (hypertension): Plan: Holding olmesartan for now 2/2 relative hypotension. Will resume as able. (5) CAD (coronary artery disease): Plan: Continue Zetia and statin. Prior PCI with STAN to LAD and balloon angioplasty of proximal jailed third diagonal in May 2020. (6) Atrial fibrillation: Plan: Resume Eliquis MARTHA - to be determined by primary service. Continue carvedilol with hold parameters. (7) REGLA (obstructive sleep apnea): Plan: Continue CPAP HS. Other Chronic Medical Conditions: ROSEMARY/Depression - Continue Zoloft. DVT Prophylaxis: SCDs/TEDs as per primary service. 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 Code Status: FULL CODE PCP: Nelson Mckeon DO [[facility]] Disposition: Discharge planning as per primary service. We will follow the patient with you during their hospital stay. You can [facility] via [employer]. Patient seen in collaboration with Dr. Avilez. Please see addendum. I spent a total of 32 minutes coordinating, documenting, and providing care for this patient excluding time spent in the performance of separately billed services or time spent by another provider/QHP. This included personally reviewing all current laboratories and imaging studies, medical reconciliation, outpatient chart review and discussion with specialists. This chart was completed in part utilizing Speech Voice Recognition Software. Grammatical errors, random word insertions, pronoun errors, and incomplete sentences are an occasional consequence of this system due to software limitations, ambient noise, and hardware issues. Any formal questions or concerns about the content, text, or information contained within the body of this dictation should be directly addressed to the provider for clarification. Admission and Anticipated Discharge Date Admission Date: June 17, 2024 Supervising Physician Co-Signing Physician Notes I have reviewed the advanced practitioner's documentation, and I agree with, and take responsibility for the plan of care I spent a total of 20 minutes coordinating, documenting, and providing care for this patient excluding time spent in the performance of separately billed services. All of the aforementioned completed while collaborating with the assigned advanced practitioner for a full treatment plan Subjective Patient seen and examined in room W456-2. NAEO. Family present at bedside including his , daughter and grandson. Endorses good pain control. No BM yet postoperatively but does have some abdominal cramping and has been passing gas. Denies any chest pain or SOB. Tolerating a diet without issue. Review of Systems Review of Systems: At least ten systems reviewed and negative, except as noted in the subjective section. Physical Exam Physical Exam: General: Obese, M. NAD. Laying down in bed. Very pleasant. [place] in L ear. A&Ox4. Family at bedside. HEENT: Normocephalic, atraumatic. Conjunctivae normal, anicteric sclerae. External ear/nose normal, oropharynx normal. Respiratory: Normal respiratory effort, lungs clear to auscultation bilaterally. No accessory muscle use. Cardiovascular: Regular rate and rhythm. Normal peripheral pulses. No BLE edema. Has BLE SCDs and TEDs in place. Abdomen/GI: Normal bowel sounds, soft, nondistended, nontender to palpation in all quadrants. Extremities/MSK: BLE tactile sensation intact. NAMAN drain x 1 intact and draining serosanguineous output. Surgical dressing C/D/I. Neurologic: No overt focal deficits, CN's II-XI not formally tested but appear grossly intact bilaterally. Actively moves all extremities. Results & Data Results & Data Vital Signs (Past 12 Hours) Vital Signs Temp Pulse Pulse Resp BP Pulse Ox O2 Del Method 06/19/24 02:26 60 25 H 98 06/18/24 22:20 65 25 H 96 06/18/24 22:18 36.7 C 61 18 127/73 95 Room Air 06/18/24 20:16 64 Laboratory Results Short CBC 06/19/24 Range/Units 04:58 WBC 10.81 H (4.8-10.8) K/ul Hgb 10.4 L (14.0-18.0) g/dl Hct 32.5 L (42.0-52.0) % Plt Count 92 L (130-400) K/uL BMP 06/19/24 04:58 Sodium 136 Potassium 4.5 Chloride 105 Carbon Dioxide 28 BUN 26 H Creatinine 0.99 Glucose 186 H Calcium 8.5 L (3) DM type 2 (diabetes mellitus, type 2) Diabetes mellitus complication status: without complication 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 transplanted heart: [place] heart Qualified Code(s): I25.10 - Atherosclerotic heart disease of [place] coronary artery without angina pectoris (6) Atrial fibrillation Atrial fibrillation type: unspecified Qualified Code(s): I48.91 - Unspecified atrial fibrillation
[2024-06-19] MEDS: LANTUS PER UNIT CHARGE SC SCH (08:26)
--- NOTE | 2024-06-19 08:27 | Orthopedic Progress Note ---
Date of Service June 19, 2024 Assessment & Plan (1) Two-level lumbosacral spondylosis with radiculopathy: Plan: We will continue physical therapy today. Monitor his NAMAN output. Hopefully discharge home tomorrow. Admission and Anticipated Discharge Date Admission Date: June 17, 2024 Subjective Patient's back pain is controlled leg. Leg pain improved. He is tolerating physical therapy. Physical Exam Physical Exam: Patient is comfortable. He is in the chair. He is distracted testing. Results & Data Vital Signs (Past 12 Hours) Vital Signs Temp Pulse Pulse Resp BP Pulse Ox O2 Del Method 06/19/24 07:32 36.3 C L 64 20 132/78 96 Room Air 06/19/24 02:26 60 25 H 98 06/18/24 22:20 65 25 H 96 06/18/24 22:18 36.7 C 61 18 127/73 95 Room Air Queries Orthopedic Spine Acute Posthemorrhagic Anemia: Yes Obesity: Yes
--- NOTE | 2024-06-19 14:03 | Pharmacy Report ---
Pharmacy Glycemic Short Note 2 - Date of Service June 19, 2024 - Glycemic Short BSG Results (Last 24 hours): 06/18/24 06/18/24 06/19/24 16:38 20:26 04:58 Glucose 186 H POC Glucose 251 H 218 H 06/19/24 06/19/24 08:11 12:08 Glucose POC Glucose 208 H 268 H OUTPATIENT ANTIDIABETIC REGIMEN: * Jardiance 10mg po daily * glipizide 5mg po daily HbA1c: 7.5% on 05/23/24 ASSESSMENT: 06/19 * BSGs [phone] mg/dL yesterday; * Increase in basal ~35-50% today * Novolog tightened to weight stress of 3, monitor for additional tightening 06/18 * Wesley is a 73 year old male admitted today for an L2-L5 decompression and fusion (POD#). Pharmacy has been consulted for glycemic management postop. * Preop BSG was 229mg/dL and postop was 241mg/dL. Patient received 8mg iv dexame thasone x 1 preop and is ordered dexamethasone 6mg iv daily x 3 days. Lantus 15 units SQ x 1 was ordered a weight based bolus insulin with a stress between 1 and 2 was started. PLAN FOR INPATIENT GLYCEMIC CONTROL: * Hold outpatient oral diabetes medications * Basal insulin * Lantus 20 units this morning, 0/10 units scheduled for PM * Bolus insulin * NovoLog per scale ACHS or Q6hrs while NPO * Goal Range: Low 110 mg/dL - High 140 mg/dL * Correction Factor: 20 mg/dL/unit * Nutritional / Prandial insulin per carb ratio of 1 unit per 6 grams CHO consumed
[2024-06-19] MEDS: MAGNESIUM HYDROXIDE SUSP 30 ML UDC PO PRN (17:01)
[2024-06-19] MEDS: LANTUS PER UNIT CHARGE SC ONE (20:39)
[2024-06-20 04:50] LABS: Hematocrit (blood only) 32.7 % (42.0-52.0); Hemoglobin 10.2 g/dl (14.0-18.0); Mean Corpuscular Hemoglobin 25.7 pg (25.0-34.0); Mean Corpuscular Hgb Conc 31.2 g/dL (32.0-36.0); Mean Corpuscular Volume 82.4 fL (80.0-100.0); Mean Platelet Volume 10.4 fL (9.4-12.4); Platelet Count 98 K/uL (130-400); RDW Coefficient of Variation 15.9 % (11.5-14.5); RDW Standard Deviation 47.4 fL (36.4-46.3); Red Blood Count 3.97 M/uL (4.70-6.10); White Blood Count 11.36 K/ul (4.8-10.8)
[2024-06-20 05:05] LABS: Calcium 8.6 mg/dl (8.6-10.3); Creatinine Clr Calc Pharmacy 80.8 ml/min; Magnesium 2.1 mg/dl (1.7-2.4); Potassium 5.2 mmol/L (3.5-5.1)
[2024-06-20] MEDS: bisacodyL 10 MG SUPP PR PRN (07:53)
[2024-06-20 07:57] VITALS: RESP 18
--- NOTE | 2024-06-20 08:19 | Discharge Summary ---
Date of Service June 20, 2024 Admission HPI Per Admitting Provider This is a 73-year-old male who presents with chronic cyst in back and bilateral leg pain and failing course of nonoperative care is here for surgical invention. Principal Diagnosis Multilevel lumbar spondylosis with radiculopathy Discharge Data Allergies Allergy/AdvReac Type Severity Reaction Status Date / Time fish oil AdvReac Intermediate Gastrointestinal Verified 06/17/24 09:07 Upset Consultations 06/17/24 14:25 Consult Hospitalist Routine Procedures Performed Operation Date: 06/17/24 10:05 Actual Procedures p L2-L5 Decompression and Fusion, Spinal Cord Monitoring(Not Applicable) - Mick Guzman DO Ordered Studies 06/17/24 10:05 FL lumbar spine 2-3V Routine Hospital Course (1) Two-level lumbosacral spondylosis with radiculopathy: Patient underwent lumbar compression fusion patient underwent a multilevel lumbar decompression fusion tolerated so stayed the orthopedic floor postoperative. Postoperatively he progressed appropriately. Marked improvement of his leg symptoms. Tolerating physical therapy. NAMAN drain decreasing appropriately. Subsidy discharged home. Discharge orders and instructions are on the chart for further review. Total Time Total Time Spent Total Time Spent (In Minutes): 20 minutes Discharge Plan Discharge Items Patient Disposition: Home - Self-Care Reason For Visit: Other Spondylosis with Radiculopathy, Lumbar Regio Discharge Diagnosis: Lumbar spondylosis with radiculopathy Activity: As commented below Non-emergency contact: Primary Care Provider Call non-emergency contact if: you have any medication questions Follow-up/Referrals: Nelson Mckeon DO [Primary Care Provider] - Diet: Regular Addtl Attending Provider Instructions: ACTIVITY RECOMMENDATIONS: SELF CARE INSTRUCTIONS AFTER THORACIC/LUMBAR FUSIONS 1. You may walk to your tolerance. It is good exercise for your legs and back. Expect some back and intermittent leg aches and pains. 2. You may perform "counter-top" level activities (make a sandwich, chery with a project, etc.). 3. No bending or lifting of more than 10 pounds or back twisting of any nature (roll like a log when turning in bed). 4. You may ride in a car for 20-30 minutes at a time. No driving until after your first visit with your doctor. 5. Frequent changes of position and restricting sitting to 30 minutes at a time will help limit the amount of back spasms and stiffness you may experience. 6. You may discontinue the use of ambulatory aids (cane, crutches, etc.) once your strength and confidence allow. 7. You may marine transport professionals the shower and let water strike your incision when you arrive home at least once daily. Do not take a tub bath, sit in a hot tub or go into a swimming pool until after your first recheck in the office. 8. You may resume previous diet. SPECIAL CARE INSTRUCTIONS: VERY IMPORTANT TO READ AND REVIEW A. Your surgical incision has been closed with a cosmetic suture under the skin that will dissolve in about 6 weeks. In 14 days, you can use a pair of clean scissors and cut the suture that is left outside of the skin at the ends of your incision. 1. The small skin tapes can be removed 7 days after surgery if they have not fallen off by that point. 2. You may keep the wound open to air as much as possible to promote healing after post-op day number 5 unless told otherwise by your doctor. 3. If you think the wound looks like it is becoming infected (redness or worsening drainage) and/or you are experiencing fever, chill or worsening back pain and muscle spasms, contact the office so that we may evaluate you as soon as possible. B. Complications are uncommon, but please contact us if you have any signs or symptoms of: 1. wound infection (fever higher than 102.5 degrees F, redness, separation of wound, drainage, or increasing pain from the incision) 2. blood clots in legs (pain, swelling, redness and warmth in legs) 3. urinary tract infection (fever higher than 102.5 degrees F, burning upon urination or increased frequency of urination) 4. nerve problems (inability to walk on your toes or heels, numbness, loss of bowel or bladder control) 5. any other symptoms that concern you C. Please call the office at if you have any concerns or questions about your operation or recovery. D. No smoking! Smoking drastically decreases the chance of a solid fusion. E. Do not take any anti-inflammatory medications (Indocin, Advil, Motrin, Aspirin, Naprosyn, etc.) as these may inhibit the chance of a solid fusion. Tylenol is okay to take for pain. MANAGING PAIN AFTER SPINAL SURGERY 1. Narcotic medication is intended for short-term use and will be provided for surgical pain. Surgical pain usually lasts for a period of 4-6 weeks. Narcotic medication includes Percocet, Vicodin, Darvocet, Tylenol #3 or Lortab. 2. Longer-term pain is more appropriately treated with non-narcotic medication such as Tylenol ES. 3. Muscle spasm is not appropriately treated with narcotics. Muscle relaxers such as Soma, Flexeril or Skelaxin can be used along with Tylenol ES. 4. Remember that we all live with some "aches and pains". This is not unusual or uncommon after an injury or as we get older. a. Back pain is expected and may include muscle spasms for 4 to 6 weeks after surgery. The pain should gradually improve. If the pain worsens for no apparent reason, please contact the office. b. Intermittent leg pain may also be experienced and should not be concerned about unless it worsens for no apparent reason. If so, please contact the office. 5. We will provide appropriate medication within the normal guidelines of their prescribed use. We will also be very cautious and aware of potential abuse and extended duration of patients' medication needs. a. Pain medications are for your comfort and to assist with sleep and rest so that the tissue can heal. They are not provided in order to return to normal activity and should not be used through the day. To do so or worsening pain at night can result from ongoing tissue damage and development of tolerance to the prescribed medicine. 6. Please allow 2-3 days to process refills. Prescriptions will not be mailed but must be picked up at the office. FOLLOW UP VISIT: Keep your scheduled follow-up appointment. Any questions, please call the office at . Pending Studies at Discharge: No Stand-Alone Forms: My [employer], Smoking Cessation Medications and DC Order Prescriptions: New tramadol 50 mg tablet 50 mg PO Q6H PRN (Reason: pain, moderate) Qty: 30 0RF oxycodone 5 mg tablet 5 mg PO Q6H PRN (Reason: pain) Qty: 30 0RF Continued rosuvastatin 5 mg tablet 20 mg PO HS bumetanide 2 mg Tablet 2 mg PO QAM cyanocobalamin (vitamin B-12) [Vitamin B-12] 1,000 mcg Tablet 1,000 mcg PO QAM nitroglycerin [Nitrostat] 0.4 mg Tablet, Sublingual 0.4 mg sublingual Q5M PRN (Reason: Chest Pain) folic acid 1 mg tablet 1 mg PO QAM olmesartan [Benicar] 20 mg tablet 20 mg PO QAM One-A-Day Men's 50 Plus(vit K) 400-20-370 mcg Tablet 1 tab PO QAM (DME) OneTouch Ultra Blue Test Strip Strip See Rx Instructions .ROUTE .MEDSUPPLY Qty: 100 0RF Rx Instructions: check once a day (DME) lancets Misc See Rx Instructions .ROUTE .MEDSUPPLY Qty: 100 0RF Rx Instructions: check once a day. glipizide 5 mg tablet 5 mg PO QAM sertraline 100 mg tablet 100 mg PO QPM ezetimibe 10 mg Tablet 10 mg PO QAM Jardiance 10 mg Tablet 10 mg PO QAM Held Eliquis 5 mg tablet 5 mg PO BID Hold Instructions: Resume on 06/22/24. Discontinued carvedilol 12.5 mg tablet 12.5 mg PO BID Discharge Orders: Discharge Order (Routine); Ordered 06/20/24 Ordered By: Mick Guzman Admission Data Admit Date/Time: 06/17/24 12:56 Attending Provider: Mick Guzman Admit Provider: Mick Guzman Primary Care Provider: Nelson Mckeon Other Providers: Alie Vasquez; Vasile Boggs
[2024-06-20] MEDS: LANTUS PER UNIT CHARGE SC SCH (08:32)
[2024-06-20] MEDS ORDERED: LANTUS PER UNIT CHARGE SC SCH (09:00)
--- NOTE | 2024-06-20 11:46 | Hospitalist Progress Note ---
Date of Service June 20, 2024 Assessment & Plan (1) Two-level lumbosacral spondylosis with radiculopathy: Plan: Mr. Orozco is a 73y/o M with PMHx significant for CAD s/p PCI with STAN to LAD and balloon angioplasty of proximal jailed third diagonal in May 2020, NSTEMI in May 2020, CHF, SSS s/p pacemaker placement, AFib on Eliquis, pulmonary sarcoidosis, REGLA on CPAP HS, thoracic aortic aneurysm (stable since 2007), HTN, HLD, GERD, DMII and history of TIA in May 2020 who is being seen in consultation for routine postoperative medical management after undergoing elective L2-L5 decompression and fusion performed by Dr. Guzman on 06/17/24. Per ortho for pain control, wound care, anticoagulation and activities. Continue incentive spirometry, PT/OT when appropriate as per ortho team. Leukocytosis likely 2/2 Decadron use - monitor. (2) Acute blood loss anemia: Plan: In the setting of expected surgical loss with EBL of 650mL. Preop Hgb 14. Hgb downtrended to 10.2 today. No indication to transfuse at this time. Continue to monitor daily CBC. (3) DM type 2 (diabetes mellitus, type 2): Plan: Hold home agents. SSI protocol while inpatient. Hgb A1c 7.5% on 05/23/24. Continue BSG checks ACHS. (4) HTN (hypertension): Plan: resume olmesartan at discharge continue coreg (5) CAD (coronary artery disease): Plan: Continue Zetia, coreg, ARB and statin. Prior PCI with STAN to LAD and balloon angioplasty of proximal jailed third diagonal in May 2020. (6) Hyperkalemia: Plan: K elevated at 5.2 today repeat was 4.6 recommend low potassium diet encourage patient to talk to PCP to repeat BMP at hospital follow up If K is elevated consider close monitoring/holding arb (7) Atrial fibrillation: Plan: Hold eliquis until 06/[address] Guzman continue coreg (8) REGLA (obstructive sleep apnea): Plan: Continue CPAP HS. Other Chronic Medical Conditions: ROSEMARY/Depression - Continue Zoloft. DVT Prophylaxis: SCDs/TEDs as per primary service. Resume DIRECTOR CHILD Eliquis as per primary service. Code Status: FULL CODE PCP: Nelson Mckeon DO [[facility]] Disposition: Discharge planning as per primary service. We will follow the patient with you during their hospital stay. You can reach a member of the [employer] Hospitalist Team 05/09 via [employer]. Patient seen in collaboration with Dr. Avilez. Please see addendum. I spent a total of 34 minutes coordinating, documenting, and providing care for this patient excluding time spent in the performance of separately billed services or time spent by another provider/QHP. This included personally r eviewing all current laboratories and imaging studies, medical reconciliation, outpatient chart review and discussion with specialists. Admission and Anticipated Discharge Date Admission Date: June 17, 2024 Supervising Physician Co-Signing Physician Notes I have reviewed the advanced practitioner's documentation, and I agree with, and take responsibility for the plan of care Subjective Pt was seen in [facility]. He states he has not moved his bowels since monday. His nurse darwin states he was given a suppository this morning. He denies passing gas. He denies feeling abd pain/distension, n or vomiting. He is having incisional back pain and pain in his left leg. Review of Systems Review of Systems: All systems reviewed & are unremarkable except as noted in HPI & below Physical Exam Physical Exam: Gen: WD/WN, sitting up in bedside chair, NAD, A&O x3 HEENT: Normocephalic, atraumatic, conjunctivae moist, sclerae anicteric, mucous membranes moist. Lung: Clear to Auscultation bilaterally, no wheezes/rales/rhonchi Heart: Regular rate, regular rhythm, no murmurs, rubs, or gallops Abdomen: Soft, NT, ND +BS x 4 Extremities: lumbar dressing CDI with serosanguineous drainage with NAMAN drainage Skin: Warm, no rash, negative turgor. Results & Data Results & Data Vital Signs (Past 12 Hours) Vital Signs Temp Pulse Pulse Resp BP Pulse Ox O2 Del Method 06/20/24 07:56 36.4 C L 62 18 119/73 97 Room Air 06/20/24 03:01 77 14 97 FiO2 06/20/24 07:56 06/20/24 03:01 21 Laboratory Results I have independently reviewed and interpreted patient's admitting labs including CBC, BMP, mag Medications Administered Current Inpatient Medications Acetaminophen (Acetaminophen 500 Mg Tab) 1,000 mg PO Q8H PRN PRN Reason: MILD Pain Scale 1,2,3 & Pre PT Stop: 07/17/24 14:24 Last Admin: 06/20/24 07:54 Dose: 1,000 mg Al Hydrox/Mg Hydrox/Simethicone (Aluminum/Magnesium Susp 30 Ml Udc) 30 ml PO Q6H PRN PRN Reason: Dyspepsia Stop: 07/17/24 14:24 Amlodipine Besylate (Amlodipine Besylate 5 Mg Tab) [facility] [place] Stop: 07/18/24 08:59 Last Admin: 06/20/24 07:56 Dose: 10 mg Bisacodyl (Bisacodyl 10 Mg Supp) 10 mg [facility] DAILY PRN PRN Reason: Constipation Stop: 07/17/24 14:24 Last Admin: 06/20/24 07:53 Dose: 10 mg Bumetanide (Bumetanide 1 Mg Tab) 2 mg PO [facility] Stop: 07/18/24 08:59 Carvedilol (Carvedilol 12.5 Mg Tab) 12.5 mg PO BID [facility] Stop: 07/18/24 20:59 Last Admin: 06/20/24 07:55 Dose: 12.5 mg Cyanocobalamin (Cyanocobalamin (B-12) 500 Mcg Tablet) 1,000 mcg PO [facility] Stop: 07/18/24 08:59 Last Admin: 06/20/24 07:55 Dose: 1,000 mcg Dextrose (Dextrose 50% 50 Ml Syringe) 25 - 50 ml IV UD PRN; Protocol PRN Reason: Hypoglycemia Protocol Stop: 07/17/24 14:40 Diphenhydramine HCl (Diphenhydramine Capsule 25 Mg Cap) 25 mg PO Q6H PRN PRN Reason: Allergic Rhinitis/Insomnia Stop: 07/17/24 14:24 Ezetimibe (Ezetimibe 10 Mg Tab) [facility] [place] Stop: 07/18/24 08:59 Last Admin: 06/20/24 07:55 Dose: 10 mg Famotidine (Famotidine 20 Mg Tab) 20 mg PO Q12H PRN PRN Reason: Dyspepsia Stop: 07/17/24 14:24 Folic Acid (Folic Acid 1 Mg Tab) [facility] [place] Stop: 07/18/24 08:59 Last Admin: 06/20/24 07:56 Dose: 1 mg Glucagon (Glucagon For Inj 1 Mg Vial) 1 mg SQ UD PRN; Protocol PRN Reason: Hypoglycemia Protocol Stop: 07/17/24 14:40 Glucose (Glucose 40% Gel 15 Gm Tube) 15 - 30 gm PO UD PRN; Protocol PRN Reason: Hypoglycemia Protocol Stop: 07/17/24 14:40 Glucose (Glucose 10 Tab/Tube) 4 - 8 tab PO UD PRN; Protocol PRN Reason: Hypoglycemia Protocol Stop: 07/17/24 14:40 Hydromorphone HCl (Hydromorphone Inj 0.5 Mg/0.5 Ml Syr) 0.5 mg IV Q3H PRN PRN Reason: MODERATE Pain (Scale 4,5,6) & Pre PT Stop: 07/01/24 14:24 Hydromorphone HCl (Hydromorphone Inj 1 Mg/Ml Syringe) 1 mg IV Q3H PRN PRN Reason: SEVERE Pain (Scale 7,8,9,10) Stop: 07/01/24 14:24 Hydroxyzine HCl (Hydroxyzine Hcl 25 Mg Tab) 25 mg PO Q8H PRN PRN Reason: Anxiety Stop: 07/17/24 14:24 Promethazine HCl (Phenergan) 12.5 mg in 50.5 mls @ 202 mls/hr IV Q6H PRN PRN Reason: Nausea And Vomiting Stop: 07/17/24 14:24 Influenza Virus Vaccine Quadrival (Do Not Administer Flu Vaccine) 1 each N/A PRN PRN PRN Reason: Notification Stop: 07/17/24 14:24 Insulin Aspart (Insulin Aspart Per Unit Charge) 0 units SC [facility] Stop: 07/17/24 16:29 Last Admin: 06/20/24 12:30 Dose: 27 units Lorazepam (Lorazepam 0.5 Mg Tab) 0.5 mg PO Q8H PRN PRN Reason: Sedation/Anxiety Stop: 07/17/24 14:24 Lorazepam (Lorazepam 2 Mg/1 Ml Vial) 0.5 mg IV Q8H PRN PRN Reason: Sedation/Anxiety Stop: 07/17/24 14:24 Losartan Potassium (Losartan Potassium 50 Mg Tab) [facility] [place] Stop: 07/18/24 08:59 Magnesium Hydroxide (Magnesium Hydroxide Susp 30 Ml Udc) 30 ml PO Q24H PRN PRN Reason: Constipation Stop: 07/17/24 14:24 Last Admin: 06/19/24 17:01 Dose: 30 ml Metoclopramide HCl (Metoclopramide Hcl Inj 5 Mg/Ml 2 Ml Vial) 10 mg IV Q6H PRN PRN Reason: Nausea &/or Vomiting Stop: 07/17/24 14:24 Miscellaneous (Carbohydrates For Hypoglycemia ) 15 - 30 gm PO UD PRN PRN Reason: Hypoglycemia Protocol Stop: 07/17/24 14:40 Miscellaneous Information (Pharmacy Glycemic Mgmt Consult) 1 each N/A UD PRN PRN Reason: Consult Stop: 07/17/24 14:24 Naloxone HCl (Naloxone Hcl 0.4 Mg/1 Ml Vial/Carp) 0.1 mg IV Q5M PRN PRN Reason: Oversedation/Resp depression Stop: 07/17/24 14:24 Nitroglycerin (Nitroglycerin Sl 0.4 Mg/Tab Tab) 0.4 mg SL Q5M PRN PRN Reason: Chest Pain Stop: 07/17/24 14:24 Ondansetron HCl (Ondansetron Inj 2 Mg/Ml 2 Ml Vial) 4 mg IV Q6H PRN PRN Reason: Nausea &/or Vomiting Stop: 07/17/24 14:24 Ondansetron HCl (Ondansetron 4 Mg Od Tab) 4 mg PO Q6H PRN PRN Reason: Nausea Stop: 07/17/24 14:24 Oxycodone HCl (Oxycodone Hcl Ir 5 Mg Tab (Immediate Release)) 5 - 10 mg PO Q4H PRN PRN Reason: Pain & Pre PT Stop: 07/01/24 14:24 Last Admin: 06/20/24 02:27 Dose: 10 mg Pneumococcal Polyvalent Vaccine (Do Not Administer Pneumococcal Vaccine) 1 each N/A PRN PRN PRN Reason: Notification Stop: 07/17/24 14:24 Polyethylene Glycol (Polyethylene (Miralax) 17 Gm Pack) 17 gm PO Q6 MICHELLE Stop: 07/18/24 05:59 Last Admin: 06/20/24 12:33 Dose: 17 gm Rosuvastatin Calcium (Rosuvastatin Calcium 20 Mg Tab) 20 mg PO HS MICHELLE Stop: 07/17/24 20:59 Last Admin: 06/19/24 19:58 Dose: 20 mg Senna/Docusate Sodium (Docusate Sodium/Senna 50/8.6mg Tab) 2 tab PO HS MICHELLE Stop: 07/17/24 20:59 Last Admin: 06/19/24 19:56 Dose: 2 tab Sertraline HCl (Sertraline Hcl 100 Mg Tablet) 100 mg PO QPM MICHELLE Stop: 07/18/24 20:59 Last Admin: 06/19/24 19:58 Dose: 100 mg Sodium Biphosphate/Sodium Phosphate (Sod Phosphate/Sod Biphosphate Enema 132 Ml Btl) 132 ml [facility] ONE PRN PRN Reason: Constipation Stop: 07/17/24 14:24 Tramadol HCl (Tramadol Hcl 50 Mg Tablet) 50 - 100 mg PO Q4H PRN PRN Reason: Moderate-Severe pain & Pre PT Stop: 07/17/24 14:24 Last Admin: 06/18/24 20:18 Dose: 50 mg (3) DM type 2 (diabetes mellitus, type 2) Diabetes mellitus complication status: without complication Diabetes mellitus senior care insulin use: without long term care pharmacist use Qualified Code(s): E11.9 - Type 2 diabetes mellitus without complications (4) HTN (hypertension) Hypertension type: unspecified Qualified Code(s): I10 - Essential (primary) hypertension (5) CAD (coronary artery disease) Associated angina: unspecified whether angina present Coronary Disease- Associated Artery/Lesion type: unspecified vessel or lesion type [place] vs. transplanted heart: [place] heart Qualified Code(s): I25.10 - Atherosclerotic heart disease of [place] coronary artery without angina pectoris (7) Atrial fibrillation Atrial fibrillation type: unspecified Qualified Code(s): I48.91 - Unspecified atrial fibrillation
--- NOTE | 2024-06-20 17:18 | XRay Report ---
Clinical history: Constipation 3 views of the abdomen were obtained Findings: The bowel gas pattern appears unremarkable. No renal or ureteral calculi are seen. Surgical clips are seen suggestive of prior cholecystectomy. There is an extensive lumbar fusion. There is catheter tubing projecting over the left midabdomen Impression: Nonobstructive bowel gas pattern Electronically signed by Rico Marroquin 06-20-2024 5:17 PM
[2024-06-20 23:19] VITALS: O2SAT 97
[2024-06-21 08:07] VITALS: BP 147/84; TEMP 97.3
[2024-06-21] MEDS: dexAMETHasone 8 MG in SYRINGE 0 ML IV STA (11:25)
--- NOTE | 2024-06-21 11:42 | Hospitalist Progress Note ---
Date of Service June 21, 2024 Assessment & Plan (1) Two-level lumbosacral spondylosis with radiculopathy: Plan: Mr. Orozco is a 73y/o M with PMHx significant for CAD s/p PCI with STAN to LAD and balloon angioplasty of proximal jailed third diagonal in May 2020, NSTEMI in May 2020, CHF, SSS s/p pacemaker placement, AFib on Eliquis, pulmonary sarcoidosis, REGLA on CPAP HS, thoracic aortic aneurysm (stable since 2007), HTN, HLD, GERD, DMII and history of TIA in May 2020 who is being seen in consultation for routine postoperative medical management after undergoing elective L2-L5 decompression and fusion performed by Dr. Guzman on 06/17/24. Per ortho for pain control, wound care, anticoagulation and activities. Continue incentive spirometry, PT/OT when appropriate as per ortho team. Leukocytosis likely 2/2 Decadron use - monitor. Pt encouraged to continue to use Miralax twice daily at home while utlizing pain medications (2) Acute blood loss anemia: Plan: In the setting of expected surgical loss with EBL of 650mL. Preop Hgb 14. Hgb downtrended to 10.2. No indication to transfuse at this time (3) DM type 2 (diabetes mellitus, type 2): Plan: resume home agents at discharge Hgb A1c 7.5% on 05/23/24. Continue BSG checks ACHS. (4) HTN (hypertension): Plan: resume olmesartan at discharge continue coreg (5) CAD (coronary artery disease): Plan: Continue Zetia, coreg, ARB and statin. Prior PCI with STAN to LAD and balloon angioplasty of proximal third diagonal in May 2020. (6) Hyperkalemia: Plan: K elevated at 5.2 on 06/20 repeat was 4.6 recommend low potassium diet encourage patient to talk to PCP to repeat BMP at hospital follow up If K is elevated consider close monitoring/holding arb (7) Atrial fibrillation: Plan: Hold eliquis until 06/[address] Guzman continue coreg (8) REGLA (obstructive sleep apnea): Plan: Continue CPAP HS. Other Chronic Medical Conditions: ROSEMARY/Depression - Continue Zoloft. Code Status: FULL CODE PCP: Nelson Mckeon DO [[facility]] Disposition: Discharge to home today as pt has successful BM overnight. We will follow the patient with you during their hospital stay. You can reach [facility] via [employer]. Patient seen in collaboration with Dr. Avilez. Please see addendum. I spent a total of 35 minutes coordinating, documenting, and providing care for this patient excluding time spent in the performance of separately billed services or time spent by another provider/QHP. This included personally reviewing all current laboratories and imaging studies, medical reconciliation, outpatient chart review and discussion with specialists. Admission and Anticipated Discharge Date Admission Date: June 17, 2024 Supervising Physician Co-Signing Physician Notes I have reviewed the advanced practitioner's documentation, and I agree with, and take responsibility for the plan of care Subjective Pt was seen in [id number]. He finally had a BM around 2 a.m. He said it was large and felt relief after he finally went. He denies any abd pain, n/v, chest pain, sob. He is tolerating diet. He is having more back pain today with radiation to his b/l upper thighs. He denies any bowel/bladder incontinence of saddle anesthesia. Review of Systems Review of Systems: All systems reviewed & are unremarkable except as noted in HPI & below Physical Exam Physical Exam: Gen: WD/WN, sitting up in bedside chair, NAD, A&O x3 HEENT: Normocephalic, atraumatic, conjunctivae moist, sclerae anicteric, mucous membranes moist. Lung: Clear to Auscultation bilaterally, no wheezes/rales/rhonchi Heart: Regular rate, regular rhythm, no murmurs, rubs, or gallops Abdomen: Soft, NT, ND +BS x 4 Extremities: lumbar dressing CDI Skin: Warm, no rash, negative turgor. Results & Data Results & Data Vital Signs (Past 12 Hours) Vital Signs Temp Pulse Resp BP Pulse Ox O2 Del Method 06/21/24 08:00 36.3 C L 60 18 147/84 H 97 Room Air Medications Administered Current Inpatient Medications Acetaminophen (Acetaminophen 500 Mg Tab) 1,000 mg PO Q8H PRN PRN Reason: MILD Pain Scale 1,2,3 & Pre PT Stop: 07/17/24 14:24 Last Admin: 06/20/24 17:22 Dose: 1,000 mg Al Hydrox/Mg Hydrox/Simethicone (Aluminum/Magnesium Susp 30 Ml Udc) 30 ml PO Q6H PRN PRN Reason: Dyspepsia Stop: 07/17/24 14:24 Amlodipine Besylate (Amlodipine Besylate 5 Mg Tab) 10 mg PO QAM [facility] Stop: 07/18/24 08:59 Last Admin: 06/21/24 08:47 Dose: 10 mg Bisacodyl (Bisacodyl 10 Mg Supp) 10 mg FL DAILY PRN PRN Reason: Constipation Stop: 07/17/24 14:24 Last Admin: 06/20/24 07:53 Dose: 10 mg Bumetanide (Bumetanide 1 Mg Tab) 2 mg PO [facility] Stop: 07/18/24 08:59 Carvedilol (Carvedilol 12.5 Mg Tab) 12.5 mg PO BID [facility] Stop: 07/18/24 20:59 Last Admin: 06/21/24 08:47 Dose: 12.5 mg Cyanocobalamin (Cyanocobalamin (B-12) 500 Mcg Tablet) 1,000 mcg PO [facility] Stop: 07/18/24 08:59 Last Admin: 06/21/24 08:47 Dose: 1,000 mcg Dextrose (Dextrose 50% 50 Ml Syringe) 25 - 50 ml IV UD PRN; Protocol PRN Reason: Hypoglycemia Protocol Stop: 07/17/24 14:40 Diphenhydramine HCl (Diphenhydramine Capsule 25 Mg Cap) 25 mg PO Q6H PRN PRN Reason: Allergic Rhinitis/Insomnia Stop: 07/17/24 14:24 Ezetimibe (Ezetimibe 10 Mg Tab) 10 mg PO [facility] Stop: 07/18/24 08:59 Last Admin: 06/21/24 08:47 Dose: 10 mg Famotidine (Famotidine 20 Mg Tab) 20 mg PO Q12H PRN PRN Reason: Dyspepsia Stop: 07/17/24 14:24 Folic Acid (Folic Acid 1 Mg Tab) [facility] Stop: 07/18/24 08:59 Last Admin: 06/21/24 08:47 Dose: 1 mg Glucagon (Glucagon For Inj 1 Mg Vial) 1 mg SQ UD PRN; Protocol PRN Reason: Hypoglycemia Protocol Stop: 07/17/24 14:40 Glucose (Glucose 40% Gel 15 Gm Tube) 15 - 30 gm PO UD PRN; Protocol PRN Reason: Hypoglycemia Protocol Stop: 07/17/24 14:40 Glucose (Glucose 10 Tab/Tube) 4 - 8 tab PO UD PRN; Protocol PRN Reason: Hypoglycemia Protocol Stop: 07/17/24 14:40 Hydromorphone HCl (Hydromorphone Inj 0.5 Mg/0.5 Ml Syr) 0.5 mg IV Q3H PRN PRN Reason: MODERATE Pain (Scale 4,5,6) & Pre PT Stop: 07/01/24 14:24 Hydromorphone HCl (Hydromorphone Inj 1 Mg/Ml Syringe) 1 mg IV Q3H PRN PRN Reason: SEVERE Pain (Scale 7,8,9,10) Stop: 07/01/24 14:24 Hydroxyzine HCl (Hydroxyzine Hcl 25 Mg Tab) 25 mg PO Q8H PRN PRN Reason: Anxiety Stop: 07/17/24 14:24 Promethazine HCl (Phenergan) 12.5 mg in 50.5 mls @ 202 mls/hr IV Q6H PRN PRN Reason: Nausea And Vomiting Stop: 07/17/24 14:24 Influenza Virus Vaccine Quadrival (Do Not Administer Flu Vaccine) 1 each N/A PRN PRN PRN Reason: Notification Stop: 07/17/24 14:24 Insulin Aspart (Insulin Aspart Per Unit Charge) 0 units SC ACHS [facility] Stop: 07/17/24 16:29 Last Admin: 06/21/24 08:47 Dose: 16 units Lorazepam (Lorazepam 0.5 Mg Tab) 0.5 mg PO Q8H PRN PRN Reason: Sedation/Anxiety Stop: 07/17/24 14:24 Lorazepam (Lorazepam 2 Mg/1 Ml Vial) 0.5 mg IV Q8H PRN PRN Reason: Sedation/Anxiety Stop: 07/17/24 14:24 Losartan Potassium (Losartan Potassium 50 Mg Tab) 50 mg PO QAM [facility] Stop: 07/18/24 08:59 Magnesium Hydroxide (Magnesium Hydroxide Susp 30 Ml Udc) 30 ml PO Q24H PRN PRN Reason: Constipation Stop: 07/17/24 14:24 Last Admin: 06/19/24 17:01 Dose: 30 ml Metoclopramide HCl (Metoclopramide Hcl Inj 5 Mg/Ml 2 Ml Vial) 10 mg IV Q6H PRN PRN Reason: Nausea &/or Vomiting Stop: 07/17/24 14:24 Miscellaneous (Carbohydrates For Hypoglycemia ) 15 - 30 gm PO UD PRN PRN Reason: Hypoglycemia Protocol Stop: 07/17/24 14:40 Miscellaneous Information (Pharmacy Glycemic Mgmt Consult) 1 each N/A UD PRN PRN Reason: Consult Stop: 07/17/24 14:24 Naloxone HCl (Naloxone Hcl 0.4 Mg/1 Ml Vial/Carp) 0.1 mg IV Q5M PRN PRN Reason: Oversedation/Resp depression Stop: 07/17/24 14:24 Nitroglycerin (Nitroglycerin Sl 0.4 Mg/Tab Tab) 0.4 mg SL Q5M PRN PRN Reason: Chest Pain Stop: 07/17/24 14:24 Ondansetron HCl (Ondansetron Inj 2 Mg/Ml 2 Ml Vial) 4 mg IV Q6H PRN PRN Reason: Nausea &/or Vomiting Stop: 07/17/24 14:24 Ondansetron HCl (Ondansetron 4 Mg Od Tab) 4 mg PO Q6H PRN PRN Reason: Nausea Stop: 07/17/24 14:24 Oxycodone HCl (Oxycodone Hcl Ir 5 Mg Tab (Immediate Release)) 5 - 10 mg PO Q4H PRN PRN Reason: Pain & Pre PT Stop: 07/01/24 14:24 Last Admin: 06/21/24 08:47 Dose: 5 mg Pneumococcal Polyvalent Vaccine (Do Not Administer Pneumococcal Vaccine) 1 each N/A PRN PRN PRN Reason: Notification Stop: 07/17/24 14:24 Polyethylene Glycol (Polyethylene (Miralax) 17 Gm Pack) 17 gm PO Q6 [facility]HELLE Stop: 07/18/24 05:59 Last Admin: 06/21/24 06:04 Dose: Not Given Rosuvastatin Calcium (Rosuvastatin Calcium 20 Mg Tab) 20 mg PO HS [facility] Stop: 07/17/24 20:59 Last Admin: 06/20/24 20:52 Dose: 20 mg Senna/Docusate Sodium (Docusate Sodium/Senna 50/8.6mg Tab) 2 tab PO HS MICHELLE Stop: 07/17/24 20:59 Last Admin: 06/20/24 20:55 Dose: 2 tab Sertraline HCl (Sertraline Hcl 100 Mg Tablet) 100 mg PO QPM [facility] Stop: 07/18/24 20:59 Last Admin: 06/20/24 20:53 Dose: 100 mg Sodium Biphosphate/Sodium Phosphate (Sod Phosphate/Sod Biphosphate Enema 132 Ml Btl) 132 ml FL ONE PRN PRN Reason: Constipation Stop: 07/17/24 14:24 Tramadol HCl (Tramadol Hcl 50 Mg Tablet) 50 - 100 mg PO Q4H PRN PRN Reason: Moderate-Severe pain & Pre PT Stop: 07/17/24 14:24 Last Admin: 06/18/24 20:18 Dose: 50 mg (3) DM type 2 (diabetes mellitus, type 2) Diabetes mellitus complication status: without complication Diabetes mellitus retirement insulin use: without retirement use Qualified Code(s): E11.9 - Type 2 diabetes mellitus without complications (4) HTN (hypertension) Hypertension type: unspecified Qualified Code(s): I10 - Essential (primary) hypertension (5) CAD (coronary artery disease) Associated angina: unspecified whether angina present Coronary Disease- Associated Artery/Lesion type: unspecified vessel or lesion type [place] vs. transplanted heart: [place] heart Qualified Code(s): I25.10 - Atherosclerotic heart disease of [place] coronary artery without angina pectoris (7) Atrial fibrillation Atrial fibrillation type: unspecified Qualified Code(s): I48.91 - Unspecified atrial fibrillation
[2024-06-21 12:11] VITALS: PULSE 65
== END 2024-06-21 12:11 | disposition home or self-care (01) | DRG 427 ==
LOC: ASU 08:47 → 4W 12:56